=== PATIENT | female | born 1940 | race Caucasian/White ===

== ENCOUNTER 2017-04-07 11:26 | Inpatient (IN) | payer MEDICARE, OTHER ==
[~2017-04-07] VITALS: Ht 157.5 cm; Wt 54.0 kg
[2017-04-07 14:20] VITALS: BP 131/75
--- NOTE | 2017-04-07 14:36 | PM&R Post Admission Assessment ---
Post Admission Physician Asses The preadmission screen agrees with the post admission assessment that the patient is a good candidate for inpatient rehabilitation. The patient will have a comprehensive program of inpatient rehabilitation with a goal of maximizing level of functional independence prior to discharge home with spouse. The patient will have PT/OT ninety minutes per day, each discipline, five days a week for gait, strengthening, conditioning, balance, ADLs, any patient/family/caregiver training as necessary. Speech therapy to do cognitive assessment and treat as indicated. Rehabilitation nursing to assist with bowel, bladder, skin, wound care, medication administration, pain management. Email Production Specialist to assist with discharge planning, community reentry. SCD's for DVT prophylaxis. She appears to be well motivated to participate in three hours of therapy a day. She should be able to tolerate three hours of therapy a day from a medical standpoint. She should benefit from the three hours of therapy a day. She has a reasonable discharge plan, reasonable discharge rehabilitation goals and a supportive family. She has various comorbidities that need to be closely monitored with medications and treatments adjusted on a daily basis as needed. These include: Glaucoma Strss incontinence Newly diagnosed Truncal ataxia IBS Barriers to discharge for this patient who had been independent prior to this are for her to be modified independent to supervision for ADLs and mobility skills prior to discharge home with [family], so as to lessen the burden of the caregivers. Risks for this patient include: 1. Fall 2. Fracture 3. DVT 4. Pulmonary embolism 5. Flare of IBS with incontinence 6. Skin breakdown 7. Contractures 8. Poorly controlled pain 9. Urinary retention 10. UTI 11. Respiratory infection 12. Aspiration Estimated Length of Stay: 14 days Prognosis: Rehab prognosis appears good for goal of discharge home with spouse and C modified independent to supervision for ADLs and mobility skills. LIAM PATRICK MD Apr 07, 2017 14:36
--- NOTE | 2017-04-07 15:00 | Physical Therapy Evaluation ---
PT Evaluation-General Medical Diagnosis Admission Date Apr 07, 2017 at 13:40 Medical Diagnosis: ataxia Onset Date: Apr 02, 2017 Therapy Diagnosis Therapy Diagnosis: impaired mobility, ataxia, balance Referral Physician: Jorge Reason for Referral: Evaluation/Treatment Medical History Pertinent Medical History: GERD Additional Medical History glaucoma, sleep apnea, IBS, ulcerative colitis, incontinence, osteoporosis, surg (cataracts, cholecystectomy, hysterectomy, bladder repair, tonsillectomy) Reviewed History: Yes Social History Home: Multilevel Current Living Status: Spouse Entry Into Home: Stairs With Railing Split level home has at least 7 steps to go up or down. Prior/Core FIM Prior Level of Function Functional [place] Measure 0=Not Assessed/NA 4=Minimal Assistance 1=Total Assistance 5=Supervision or Setup 2=Maximal Assistance 6=Modified [place] 3=Moderate Assistance 7=Complete [place] Bed Mobility: 7 Transfers (B,C,W/C) (FIM): 7 Gait: 7 PT Evaluation-Current Subjective Patient in wheelchair pre tx, agrees to PT, states that she has no pain. Will be co-treating with OT due to ataxia. Pt/Family Goals stop ataxia Objective Patient Orientation: Person, Place, Situation ROM/Strength ROM Lower Extremities WNL Strenght Lower Extremities 4/5 gross bilateral lower extremities Neuromuscular (Tone, Coordination, Reflexes) Patient does seem to have normal tone at rest in her lower extremities. She has a normal eye tracking and peripheral vision. [place] coordination test was normal bilaterally. Dysdiadochokinesia test was normal. Normal smile, no tongue deviation, no numbness on face. Sensory Vision: Functional Hearing: Functional Sensation Right Lower Extremit: Intact Sensation Left Lower Extremity: Intact Transfers Functional [place] Measure 0=Not Assessed/NA 4=Minimal Assistance 1=Total Assistance 5=Supervision or Setup 2=Maximal Assistance 6=Modified [place] 3=Moderate Assistance 7=Complete IndependenceIRFPAI Quality Coding Scale 6 Independent with activity with or without an assistive device 5 Patient requires set up or clean up by helper. Patient completes activity by themselves 4 Supervision or touching assist (CGA). [place] provide cues , steadying assist 3 The helper provides less than half the effort to complete the activity 2 The helper provides more than half the effort to complete the activity 1 Dependent. The helper does all the effort to complete an activity 7 Patient refused to complete or attempt activity 9 The patient did not perform the activity before the current illness or injury 88 Not attempted due to Medical conditions or safety concerns Transfers (B, C, W/C) (FIM): 3 Scootin Rollin Roll Left to Right (QC): 4 Supine to/from Sit: 5 Sit to/from Stand: 3 bed t/f WC(FIM only if WC use): 2 Sit to Lying (QC): 4 Lying to Sitting/Side of Bed(Q: 4 Sit to Stand (QC): 2 Chair/Ukp-qe-Yzznl Xfer(QC): 2 Patient performs bed mobility with SBA, sit to stand and stand pivot transfer with mod assist. Patient displays ballistic trunk ataxia with trunk or knee extension. She performs a transfer much better modified squat pivot, nursing trained on how to perform the transfer. Gait Does the Patient Walk?: No and Walking Goal IS indicated Anticipated Mode of Locomotion: Walk Gait (FIM): 0 Comments/Gait Description Attempted to get patient into the LiteGait for ambulation due to safety issued because of her ballistic trunk ataxia. Her ataxia was so bad and violent that she had to sit back down. There was no way she could walk with the violent trunk movement she was having. Wheelchair Training Does the Pt Use a Wheelchair?: Yes Wheelchair (FIM): 5 Distance: 150'x2 Wheelchair Level of Assist: 5 Wheel 50 ft with 2 turns (QC): 4 Wheel 150 ft (QC): 4 Type of Wheelchair: Manual Stairs not safe to perform stairs due to ataxia Balance Sitting Static: Normal Sitting Dynamic: Normal Standing Static: Poor Standing Dynamic: Poor Treatment Patient was toileted twice and nursing was trained on how to perform a transfer with her. Co-treated with nursing who worked on dressing and toileting while PT worked on transfers and standing. OT also worked on trying to coordinate upper extremities safely while standing in the LiteGait. Assessment/Needs Patient has severe ballistic trunk ataxia, impaired strength, mobility, and balance. She is at a severe risk for falling. Rehab Potential: Guarded PT Short Term Goals Short Term Goals Time Frame: Apr 14, 2017 Transfers (B,C,W/C) (FIM): 4 Gait (FIM): 1 Gait Distance Comment: 20' Gait Level of Assist: 3 PT Supervisor Cloth Winding Goals Supervisor Cloth Winding Goals PT Supervisor Cloth Winding Goals Time Frame: Apr 28, 2017 Transfers (B,C,W/C) (FIM): 4 Sit to Lying (QC): 6 Lying-Sitting on Side/Bed(QC): 6 Sit to Stand (QC): 4 Rollin Roll Left to Right (QC): 6 Chair/Xef-ab-Rcwqf Xfer(QC): 4 Gait (FIM): 2 Distance: 50' Walk 10 feet (QC): 3 Walk 50ft with 2 Turns (QC): 3 PT Plan Problem List Problem List: Activity Tolerance, Functional Strength, Safety, Balance, Gait, Transfer, Bed Mobility Treatment/Plan Treatment Plan: Continue Plan of Care Treatment Plan: Bed Mobility, Education, Functional Activity Jeffrey, Functional Strength, Group Therapy, Gait, Safety, Therapeutic Exercise, Transfers Treatment Duration: Apr 28, 2017 Frequency: At least 5-7 days/Wk (IRF) Estimated Hrs Per Day: 1.5 hours per day Patient and/or Family Agrees t: Yes Safety Risks/Education Patient Education: Gait Training, Transfer Techniques, Correct Positioning, W/ C Management, Safety Issues Teaching Recipient: Patient Teaching Methods: Demonstration, Discussion Response to Teaching: Reinforcement Needed Discharge Recommendations Plan Patient will perform bed mobility and transfer training, balance and endurance training, functional strengthening, stair training, gait training, and education , to improve functional mobility at home. Therapy D/C Recommendations: Home w/ Family Support Time/GCodes Time In: 1355 Time Out: 1450 Total Billed Treatment Time: 55 Total Billed Treatment 1 visit EVM 10' FA 45' PT eval from [id number], co-treat from [id number] TANJA FELIX PT Apr 07, 2017 15:00
--- NOTE | 2017-04-07 15:27 | ST Cognitive Linguistic Eval ---
Speech Evaluation-General Medical Diagnosis Truncal Ataxia Onset Date: Apr 02, 2017 Therapy Diagnosis Therapy Diagnosis: Cognitive Linguistic Skills WNL Referral Referring Physician: Dr. Patel Reason for Referral: Evaluation/Treatment Cognitive Evaluation Medical History Pertinent Medical History: GERD Reviewed History: Yes Social History Current Living Status: Spouse Speech PLF-Current Status Prior Level of Function The patient denied prior challenges with speech, language, or cognition. Subjective The patient was recently admitted to [facility] unit with a diagnosis of truncal ataxia. The patient greeted the clinician appropriately and was agreeable to participation in the cognitive evaluation. Language Eval: Auditory Comprehends Simple Yes/No Ques: Functional Indent/Objects Multiple [place]: Functional Ident/Pics in Multiple Waite: Functional Follows 1-Step Commands: Functional Follows Complex Directions: Functional Follows General Conversations: Functional Language Eval: Verbal Language Completes Spontaneous Greeting: Functional Produces Auto, Serial Info: Functional Imitates Simple Words/Phrases: Functional Word Finding: Functional Requests Basic Needs: Functional States Basic Personal Info: Functional Expresses Complex Ideas: Functional Cognitive Patient Orientation The patient was independently oriented to location, month, day, date, and year. Objective Cognitive Domain Attention: WNL Memory: WNL Problem Solving: Functional Objective Impression The patient demonstrated cognitive linguistic skills WNL. Communication/Social Cognition Comprehension: 6 Expression: 6 Social Interaction: 6 Problem Solvin Memory: 6 Speech Patient Assess Expression of Ideas/Wants: Expression (4) Understanding [place] Content: Understands (4) Brief Interview-Mental Status: Yes Repetition of Three Words: Three (3) Temporal Orientation: Year: Correct (3) Temporal Orientation: Month: Accurate within 5 days(2) Temporal Orientation: Day: Correct (1) Recall : Wear to say "Sock": Yes, no cue required (2) Recall : Color: Yes, no cue required (2) Recall : Bed: Yes, no cue required (2) Speech-Plan Treatment Plan Speech Therapy Treatment Plan: Discontinue ST Evaluation, only. Frequency: Modified Program (IRF) Estimated Hrs Per Day: .25 hour per day (The patient will not receive skilled speech pathology services.) Rehab Potential: Guarded Safety Risks/Education Teaching Recipient: Patient Teaching Methods: Discussion Response to Teaching: Verbalize Understanding Education Topics Provided: Results, Recommendations, Plan of Care Time Speech Therapy Time In: 13:35 Speech Therapy Time Out: 13:55 Total Billed Time: 20 Billed Treatment Time 1, SPSNDERIS STAHL Apr 07, 2017 15:27
[2017-04-07] MEDS: acetaZOLAMIDE 250 MG (DIAMOX) TAB PO SCH (16:39)
--- NOTE | 2017-04-07 16:50 | Occupational Therapy Eval ---
OT Evaluation-General/PLF Medical Diagnosis Admission Date Apr 07, 2017 at 13:40 Medical Diagnosis: Truncal Ataxia Onset Date: Apr 02, 2017 Therapy Diagnosis Therapy Diagnosis: decr functional mobility, decr balance, decr self care, weakness Height/Weight Height (Feet): 5 Height (Inches): 2.00 Weight (Pounds): 114 Weight (Ounces): 1.0 Precautions Precautions/Isolations: Fall Prevention, Standard Precautions Referral Physician: Jorge Referral Reason: Evaluation/Treatment Medical History Pertinent Medical History: GERD Additional Medical History sleep apnea, cardiac issues, cataract surgery, IBS, colitis, stress incontinence , osteoporosis, hx frozen L shoulder. Glaucoma, orthostatic hypotension Current History Admitted with lightheadedness and developed ballistic truncal ataxia. Also has spinal cord stenosis and scoliosis. Reviewed History: Yes Social History Home: Multilevel Current Living Status: Spouse Entry Into Home: Stairs With Railing Steps Into Home: 7 (split level, with 7 steps up and 7 steps down) ADL-Prior Level of Function ADL PLOF Comments Pt reported that she was independent in all of her basic self care needs. She did not use any assistive devices for walking. She managed cleaning, cooking, laundry and drove. She did not work outside the home after she was and traveled with her and family until he retired from the [employer]. 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 Pain reported 0/10 Appearance Alert, cooperative Current Glasses/Contacts: Yes (reading) Hearing Aids: No Dentures/Partials: Yes (top and bottom) Hand Dominance: Right Upper Extremity ROM Grossly WFL bilat Upper Extremity Coordination Grossly WFL Upper Extremity Sensation WFL Upper Extremity Strength grossly 4/5 bilat ADL-Treatment ADL-Current Pt required max assist of two people to transfer her from car to w/c. Once she stood, she displayed ballistic ataxia (with trunk movement ranges of a foot or more). Co-tx with PT for toileting and toilet transfer, with PT/OT problem solving transfers and OT working on ADLs and UE management. Toileting and toilet transfer initially required two people due to her ballistic ataxia, with difficulty managing clothing. Once she was seated, however, her balance was good and she was able to wipe herself. Two people required to transfer her back to w/c and manage clothing. It was observed that she had less ataxia when she didn't extend at hips and knees. Cont co-tx with PT for standing in LiteGait, with support for trunk. As she stood, ataxia waxed and waned but was not functional. With squat pivot transfer and keeping her head down, she was able to transfer mod assist to toilet, still needing second person to manage clothing while she managed hygiene. OT and PT trained several nurses in transfer on and off BSC and to bed, with last bed transfer requiring min assist. Once in bed, other ADLs were addressed. Pt was able to easily move from supine to sit EOB and back to supine during ADLs and had no LOB while seated. It appears that hip and knee extension trigger her ataxia. Pt was left up in bed , present, all needs met. Functional [place] Measure 0=Not Assessed/NA 4=Minimal Assistance 1=Total Assistance 5=Supervision or Setup 2=Maximal Assistance 6=Modified [place] 3=Moderate Assistance 7=Complete IndependenceIRFPAI Quality Coding Scale 6 Independent with activity with or without an assistive device 5 Patient requires set up or clean up by helper. Patient completes activity by themselves 4 Supervision or touching assist (CGA). [place] provide cues , steadying assist 3 The helper provides less than half the effort to complete the activity 2 The helper provides more than half the effort to complete the activity 1 Dependent. The helper does all the effort to complete an activity 7 Patient refused to complete or attempt activity 9 The patient did not perform the activity before the current illness or injury 88 Not attempted due to Medical conditions or safety concerns Eating (FIM): 6 (Pt has dentures and there are foods that she cannot eat without her teeth. Able to cut food and open packages and feed herself) Eating (QC): 6 Grooming (FIM): 5 (Setup to brush teeth, wash face and hands, brush hair, seated EOB. No makeup. Supervision for balance) Oral Hygiene (QC): 4 (Supervision for balance) Bathing (FIM): 5 (Pt was able to wash and dry all parts, spsonge bath, seated EOB, except back. She weight shifted to get fabi and bottom. Was able to easily reach her feet. No standing) Shower/Bathe Self (QC): 4 (Supervision for balance) Upper Body Dressing (FIM): 5 (Setup, donning and doffing bra and shirt/gown. Good sitting balance at EOB) Upper Body Dressing (QC): 4 (Supervision for balance) Lower Body Dressing (FIM): 5 (Setup, supervision, seated EOB or supine. Able to doff/don socks and shoes, pants. All done bed level.) Lower Body Dressing (QC): 4 (Supervision for balance.) On/Off Footwear (QC): 4 (Supervision for balance) Toileting (FIM): 1 (Two people to manage clothing. t able to manage hygiene while seated. BSC) Toileting Hygiene (QC): 1 Toilet/Commode Transfer (FIM): 1 (Two people to transfer when standing, incl help to manage clothing) Toilet Transfer (QC): 1 Education OT Patient Education: Instructions to caregiver, Modified ADL techniques, Progress toward Goal/Update tx plan, Purpose of tx/functional activities, Rehab process, Safety issues, Transfer techniques, Use of adapted equipment Teaching Recipient: Patient, Primary Caregiver, Family Teaching Methods: Demonstration, Discussion Response to Teaching: Verbalize Understanding, Return Demonstration OT Short Term Goals Short Term Goals Time Frame: Apr 21, 2017 Toilet/Commode Transfer(FIM): 4 Shower Transfer(FIM): 4 Additional Short Term Goals: 2-Verbalize Understanding, 3-ImproveStrength/Jeffrey 1=Demonstrate adherence to instructed precautions during ADL tasks. 2=Patient will verbalize/demonstrate understanding of assistive devices/ modifications for ADL. 3=Patient will improve strength/tolerance for activity to enable patient to perform ADL's. OT Senior Living Goals Pmp Project Manager Goals Time Frame: Apr 28, 2017 Eating (FIM): 6 Eating (QC): 6 Groomin Oral Hygiene (QC): 6 Bathing(FIM): 6 Shower/Bathe Self (QC): 6 Upper Body Dressing(FIM): 6 Upper Body Dressing (QC): 6 Lower Body Dressing(FIM): 6 Lower Body Dressing (QC): 6 On/Off Footwear (QC): 6 Toileting(FIM): 5 Toileting Hygiene (QC): 5 Toilet/Commode Transfer(FIM): 5 Toilet/Commode Transfer (QC): 5 Shower Transfer(FIM): 5 Will plan for goals to be at bed or w/c level and progress to include standing as tolerated Additional Goals: 2-Verbalize Understanding, 3-ImproveStrength/Jeffrey 1=Demonstrate adherence to instructed precautions during ADL tasks. 2=Patient will verbalize/demonstrate understanding of assistive devices/ modifications for ADL. 3=Patient will improve strength/tolerance for activity to enable patient to perform ADL's. OT Education/Plan Problem List/Assessment Assessment: Decreased UE Strength, Dependent Transfers, Impaired Funct Balance , Impaired Self-Care Skills Pt would benefit from skilled OT to increase her independence in basic self care to allow her to safely return to her home to live with her and to decrease caregiver burden Discharge Recommendations Plan/Recommendations: Continue POC Barriers to Progress ballistic ataxia Target Placement home Treatment Plan/Plan of Care Treatment,Training & Education: Yes Patient would benefit from OT for education, treatment and training to promote independence in ADL's, mobility, safety and/or upper extremity function for ADL' s. Plan of Care: ADL Retraining, Caregiver Training, Functional Mobility, Group Exercise/Act as Ind (education, exercise, socialization, functional activities, activity tolerance), UE Funct Exercise/Act, UE Neuromus Re-Ed/Coord Treatment Duration: Apr 28, 2017 Frequency: Twice Daily (5- 6 days a week) Estimated Hrs Per Day: 1.5 hours per day Rehab Potential: Guarded Time/GCodes Start Time: 13:20 Stop Time: 15:35 Total Time Billed (hr/min): 105 Billed Treatment Time visit, 15 minutes evaluation moderate intensity (1320 to 1335), 15 minutes functional activity and 30 minutes ADL co-tx with PT (1405 to 1450), 45 minutes ADL (1450 to 1535) JOANNE CARVAJAL OT Apr 07, 2017 16:50
[2017-04-07 18:30] VITALS: BP 122/68
[2017-04-07] MEDS: LATANOPROST 0.005% (XALATAN) OPHTH SOLN 2.5 ML OU SCH (21:48)
[2017-04-08 04:55] VITALS: BP 111/64
[2017-04-08] MEDS: PANTOPRAZOLE 40 MG (PROTONIX) TAB PO SCH (06:18)
[2017-04-08 06:21] LABS: BASOPHILS % (AUTO) 0 % (0-10); EOSINOPHILS # (AUTO) 0.3 10^3/uL (0.0-0.3); EOSINOPHILS % (AUTO) 7 % (0-10); LYMPHOCYTES # (AUTO) 1.3 X 10^3 (1.0-4.0); LYMPHOCYTES % (AUTO) 36 % (12-44); MEAN CORPUSCULAR HEMOGLOBIN 29 PG (25-34); MEAN CORPUSCULAR HGB CONC 32 G/DL (32-36); MEAN CORPUSCULAR VOLUME 91 FL (80-99); MEAN PLATELET VOLUME 10.4 FL (7.4-10.4); MONOCYTES # (AUTO) 0.4 X 10^3 (0.0-1.0); MONOCYTES % (AUTO) 11 % (0-12); NEUTROPHILS # (AUTO) 1.6 X 10^3 (1.8-7.8); NEUTROPHILS % (AUTO) 46 % (42-75); PLATELET COUNT 172 10^3/uL (130-400); RED BLOOD COUNT 3.98 10^6/uL (4.35-5.85); RED CELL DISTRIBUTION WIDTH 13.6 % (10.0-14.5); WHITE BLOOD COUNT 3.6 10^3/uL (4.3-11.0)
[2017-04-08 06:43] LABS: ALANINE AMINOTRANSFERASE 9 U/L (0-55); ALBUMIN 3.7 GM/DL (3.2-4.5); ANION GAP 8 MMOL/L (5-14); ASPARTATE AMINO TRANSFERASE 19 U/L (5-34); BILIRUBIN,TOTAL 0.5 MG/DL (0.1-1.0); BLOOD UREA NITROGEN 21 MG/DL (7-18); BUN/CREATININE RATIO 30; CALCIUM 8.9 MG/DL (8.5-10.1); CARBON DIOXIDE 21 MMOL/L (21-32); CHLORIDE 114 MMOL/L (98-107); CREATININE SERUM 0.69 MG/DL (0.60-1.30); GFR ESTIMATED > 60; GLUCOSE 92 MG/DL (70-105); POTASSIUM 3.6 MMOL/L (3.6-5.0); SODIUM 143 MMOL/L (135-145)
--- NOTE | 2017-04-08 08:29 | Physical Therapy Daily Note ---
PT Daily Note-Current Subjective Patient in wheelchair pre tx, agrees to PT, has no complaints of pain. Appearance Patient in wheelchair post tx with her . Mental Status Patient Orientation: Normal For Age Transfers Functional [place] Measure 0=Not Assessed/NA 4=Minimal Assistance 1=Total Assistance 5=Supervision or Setup 2=Maximal Assistance 6=Modified [place] 3=Moderate Assistance 7=Complete IndependenceIRFPAI Quality Coding Scale 6 Independent with activity with or without an assistive device 5 Patient requires set up or clean up by helper. Patient completes activity by themselves 4 Supervision or touching assist (CGA). [place] provide cues , steadying assist 3 The helper provides less than half the effort to complete the activity 2 The helper provides more than half the effort to complete the activity 1 Dependent. The helper does all the effort to complete an activity 7 Patient refused to complete or attempt activity 9 The patient did not perform the activity before the current illness or injury 88 Not attempted due to Medical conditions or safety concerns Transfers (B, C, W/C) (FIM): 4 Bed to/from Chair: 4 Patient performs a modified squat pivot transfer with min assist. She cannot extend her hips or knees too much or her ataxia gets very bad. Wheelchair Training Wheelchair (FIM): 6 Distance: 150'x2 Type of Wheelchair: Manual Exercises NuStep Minutes: 15 NuStep Workload: 5 Treatments wheelchair mobility, transfers, functional strengthening Assessment Current Status: Fair Progress improving transfers PT Short Term Goals Short Term Goals Time Frame: Apr 14, 2017 Gait (FIM): 1 Gait Distance Comment: 20' Gait Level of Assist: 3 Wheelchair Distance: 150'x2 PT Vulcan Crewmember Goals Vulcan Crewmember Goals PT Vulcan Crewmember Goals Time Frame: Apr 28, 2017 Transfers (B,C,W/C) (FIM): 4 Sit to Lying (QC): 6 Lying-Sitting on Side/Bed(QC): 6 Sit to Stand (QC): 4 Rollin Roll Left to Right (QC): 6 Chair/Ewr-gn-Bfoyt Xfer(QC): 4 Gait (FIM): 2 Distance: 50' Walk 10 feet (QC): 3 Walk 50ft with 2 Turns (QC): 3 PT Plan Problem List Problem List: Activity Tolerance, Functional Strength, Safety, Balance, Gait, Transfer, Bed Mobility Treatment/Plan Treatment Plan: Continue Plan of Care Treatment Plan: Bed Mobility, Education, Functional Activity Jeffrey, Functional Strength, Group Therapy, Gait, Safety, Therapeutic Exercise, Transfers Treatment Duration: Apr 28, 2017 Frequency: At least 5-7 days/Wk (IRF) Estimated Hrs Per Day: 1.5 hours per day Patient and/or Family Agrees t: Yes Safety Risks/Education Patient Education: Transfer Techniques, Correct Positioning, W/C Management, Safety Issues Teaching Recipient: Patient Teaching Methods: Demonstration, Discussion Response to Teaching: Reinforcement Needed Time/GCodes Time In: 800 Time Out: 830 Total Billed Treatment Time: 30 Total Billed Treatment 1 visit EX 15' [facility] 15' TANJA FELIX PT Apr 08, 2017 08:29
[2017-04-08] MEDS: COLAZAL PO SCH ×3 (08:56→20:35)
--- NOTE | 2017-04-08 10:36 | Occupational Ther Daily Note ---
OT Current Status-Daily Note Subjective "Ok I am here to get better, but my upper body is pretty good, but you should see me move." Pain Numeric Pain Scale: 0-No Pain Appearance Patient seated in wheelchair at side of bed visiting with her upon OT arrival. Agreeable to session this am. Mental Status/Objective Patient Orientation: Person, Place, Situation Functional [place] Measure 0=Not Assessed/NA 4=Minimal Assistance 1=Total Assistance 5=Supervision or Setup 2=Maximal Assistance 6=Modified [place] 3=Moderate Assistance 7=Complete [place] ADL-Treatment Functional [place] Measure 0=Not Assessed/NA 4=Minimal Assistance 1=Total Assistance 5=Supervision or Setup 2=Maximal Assistance 6=Modified [place] 3=Moderate Assistance 7=Complete IndependenceIRFPAI Quality Coding Scale 6 Independent with activity with or without an assistive device 5 Patient requires set up or clean up by helper. Patient completes activity by themselves 4 Supervision or touching assist (CGA). [place] provide cues , steadying assist 3 The helper provides less than half the effort to complete the activity 2 The helper provides more than half the effort to complete the activity 1 Dependent. The helper does all the effort to complete an activity 7 Patient refused to complete or attempt activity 9 The patient did not perform the activity before the current illness or injury 88 Not attempted due to Medical conditions or safety concerns Other Treatment Agreed to strength and endurance work to address safe transfers. She completed moderate resistive theraband x 10 reps shoulders/elbows with good tolerance. Then patient participated in wheelchair push ups x 10reps. She required several rest breaks throughout the session. During wheelchair push ups, if she lifted her bottom out of the wheelchair too far, the ballistic ataxia was triggered. Cautioned her to only come up so far as to not trigger the movements. Theraband left in the room for her use over the weekend. Encouraged her to self -propell the wheelchair in the commons area during the weekend to address strength and endurance as well. She and her agreed to do so. OT Short Term Goals Short Term Goals Time Frame: Apr 21, 2017 Toilet/Commode Transfer(FIM): 4 Shower Transfer(FIM): 4 Additional Short Term Goals: 2-Verbalize Understanding, 3-ImproveStrength/Jeffrey 1=Demonstrate adherence to instructed precautions during ADL tasks. 2=Patient will verbalize/demonstrate understanding of assistive devices/ modifications for ADL. 3=Patient will improve strength/tolerance for activity to enable patient to perform ADL's. OT Prison Goals Camp Recreation Specialist Goals Time Frame: Apr 28, 2017 Eating (FIM): 6 Eating (QC): 6 Groomin Oral Hygiene (QC): 6 Bathing(FIM): 6 Shower/Bathe Self (QC): 6 Upper Body Dressing(FIM): 6 Upper Body Dressing (QC): 6 Lower Body Dressing(FIM): 6 Lower Body Dressing (QC): 6 On/Off Footwear (QC): 6 Toileting(FIM): 5 Toileting Hygiene (QC): 5 Toilet/Commode Transfer(FIM): 5 Toilet/Commode Transfer (QC): 5 Shower Transfer(FIM): 5 Will plan for goals to be at bed or w/c level and progress to include standing as tolerated Additional Goals: 2-Verbalize Understanding, 3-ImproveStrength/Jeffrey 1=Demonstrate adherence to instructed precautions during ADL tasks. 2=Patient will verbalize/demonstrate understanding of assistive devices/ modifications for ADL. 3=Patient will improve strength/tolerance for activity to enable patient to perform ADL's. OT Education/Plan Problem List/Assessment Pt would benefit from skilled OT to increase her independence in basic self care to allow her to safely return to her home to live with her and to decrease caregiver burden Discharge Recommendations Plan/Recommendations: Continue POC Treatment Plan/Plan of Care Patient would benefit from OT for education, treatment and training to promote independence in ADL's, mobility, safety and/or upper extremity function for ADL' s. Plan of Care: ADL Retraining, Caregiver Training, Functional Mobility, Group Exercise/Act as Ind (education, exercise, socialization, functional activities, activity tolerance), UE Funct Exercise/Act, UE Neuromus Re-Ed/Coord Treatment Duration: Apr 28, 2017 Frequency: Twice Daily (5- 6 days a week) Estimated Hrs Per Day: 1.5 hours per day Rehab Potential: Guarded Time/GCodes Start Time: 08:47 Stop Time: 09:12 Total Time Billed (hr/min): 25 Billed Treatment Time Visit, ex x 2 units. DAILY MORRISON OT Apr 08, 2017 10:36
[2017-04-08] MEDS: acetaZOLAMIDE 250 MG (DIAMOX) TAB PO SCH (13:42)
[2017-04-08 18:49] VITALS: BP 146/71
[2017-04-08] MEDS: LATANOPROST 0.005% (XALATAN) OPHTH SOLN 2.5 ML OU SCH (20:34)
--- NOTE | 2017-04-09 02:07 | HISTORY AND PHYSICAL ---
CHIEF COMPLAINT: Difficulty with balance. HISTORY OF PRESENT ILLNESS: The patient is a 76-year-old female who developed unsteady gait pattern about 3 weeks ago associated with lightheadedness, sitting up or standing. The patient was admitted to hospitalist service at [facility] on 04/02 and seen in consultation by neurology on 04/03. Impression was truncal ataxia after examination and work-ups with imaging studies and labs were done. The patient was placed on Diamox for treatment. The patient has had a decline in her functional independence due to this and is referred to Inpatient Rehabilitation Unit. Prior level of function She had been independent prior to this and living with her spouse in [place], [place]. Her PCP is in [place], [place]. Neurologist also mentioned syringomyelia diagnosed 3 years ago at [facility], followed by neurosurgery and to continue observation. Current level of function: She is Modified Independent for eating and setup for grooming , bathing and dressing.She requires Min assist for bed mobility and transfers.Upon admission she had involuntary movements due to truncal ataxia and could not stand to walk safely. PAST MEDICAL HISTORY: 1. COPD. 2. GERD with pylori infection and hiatal hernia. 3. Glaucoma, on eyedrops. 4. Noncardiac chest pain. 5. Irritable bowel syndrome, on medication. 6. Urinary stress incontinence. 7. Osteoporosis. 8. Frozen left shoulder. PAST SURGICAL HISTORY: 1. Cataract extraction. 2. Cholecystectomy. 3. Hysterectomy partial. 4. Bladder repair. 5. Tonsillectomy. 6. Colonoscopy. 7. EGD. 8. Pablito fundoplication. 9. Manipulation for left frozen shoulder. ALLERGIES: No known medication allergies. FAMILY HISTORY: 1. Brain cancer. 2. Hyperlipidemia. 3. Diabetes mellitus. SOCIAL HISTORY: Lives with spouse in [facility], had been independent. No tobacco. Occasional caffeine and alcohol use.Traveled with her who was in the [employer] REVIEW OF SYSTEMS: Ten-point review of systems significant for loose stools at times, left shoulder pain, loss of balance. MEDICATIONS: 1. Colazal 2250 mg p.o. b.i.d. for IBS. 2. Vitamin B12 1000 mcg subcutaneous every 30 days. 3. Nexium 40 mg p.o. daily. 4. Xalatan one drop both eyes at bedtime. 5. Diamox 125 mg p.o. daily. PHYSICAL EXAMINATION: Significant for a pleasant female, somewhat thin, appearing her stated age, alert and oriented, sitting in a chair in no acute distress. VITAL SIGNS: Within normal limits. She is afebrile. HEENT: Vision, speech, hearing are functional. No oral lesion is noted. NECK: Supple without mass. HEART: Regular rhythm. LUNGS: Clear. ABDOMEN: Soft and nontender. Bowel sounds present. EXTREMITIES: No lower leg edema. No calf tenderness. MUSCULOSKELETAL: The patient has functional passive range of motion in all 4 extremities.. NEUROLOGIC: Cranial nerves II through XII intact. Tone normal. Strength grossly 4/5. Sensation grossly intact to touch. Coordination normal in limbs ,+ truncal ataxia. Cognition grossly intact. IMPRESSION: 1. 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 2. Irritable bowel syndrome on Colazal. 3. GERD, on Nexium. 4. Glaucoma, on Xalatan eyedrops. PLAN: The patient will have a comprehensive program of inpatient rehabilitation with goal of maximizing level of functional independence prior to discharge home with spouse. The patient will have PT/OT 90 minutes per day, each discipline, 5 days week for gait/strengthening, conditioning, balance, any patient/family/caregiver training necessary, ADL training, any adaptive equipment and training as necessary. Speech therapy to do cognitive assessment and treat as indicated. Rehabilitation nursing to assist with bowel, bladder, skin care, medication administration, pain management, as necessary. Social work to assist with discharge planning, community reentry as needed. Will ask Dr. Joyner to assist with medical management as needed for this out of town patient. Routine admission labs. ESTIMATED LENGTH OF STAY: Two weeks. PROGNOSIS: Rehab prognosis appears good for goal of discharging home with spouse modified independent to supervision for ADLs and mobility skills. DIET: Regular. CODE STATUS: Full code. Job ID: [id number] Dictated Date: 04/07/2017 14:28:45 Hydraulic Press Operator Date: 04/09/2017 01:42:03/ervin CABELLO
[2017-04-09 06:00] VITALS: BP 155/72
[2017-04-09] MEDS: PANTOPRAZOLE 40 MG (PROTONIX) TAB PO SCH (06:01)
[2017-04-09] MEDS: COLAZAL PO SCH ×2 (08:48→20:28)
[2017-04-09] MEDS: acetaZOLAMIDE 250 MG (DIAMOX) TAB PO SCH (13:54)
[2017-04-09 18:23] VITALS: BP 105/67
[2017-04-09] MEDS: LATANOPROST 0.005% (XALATAN) OPHTH SOLN 2.5 ML OU SCH (20:28)
[2017-04-10 05:14] VITALS: BP 145/63
[2017-04-10] MEDS: PANTOPRAZOLE 40 MG (PROTONIX) TAB PO SCH (06:32)
[2017-04-10] MEDS: COLAZAL PO SCH ×2 (08:20→20:04)
--- NOTE | 2017-04-10 09:57 | Physical Therapy Daily Note ---
PT Daily Note-Current Subjective Patient in wheelchair pre tx, agrees to PT, has no complaints of pain. Appearance Patient in wheelchair at bedside post tx, has nurse call, phone, tray, all needs met. Mental Status Patient Orientation: Normal For Age Transfers Functional [place] Measure 0=Not Assessed/NA 4=Minimal Assistance 1=Total Assistance 5=Supervision or Setup 2=Maximal Assistance 6=Modified [place] 3=Moderate Assistance 7=Complete IndependenceIRFPAI Quality Coding Scale 6 Independent with activity with or without an assistive device 5 Patient requires set up or clean up by helper. Patient completes activity by themselves 4 Supervision or touching assist (CGA). [place] provide cues , steadying assist 3 The helper provides less than half the effort to complete the activity 2 The helper provides more than half the effort to complete the activity 1 Dependent. The helper does all the effort to complete an activity 7 Patient refused to complete or attempt activity 9 The patient did not perform the activity before the current illness or injury 88 Not attempted due to Medical conditions or safety concerns Transfers (B, C, W/C) (FIM): 4 Sit to/from Stand: 4 Bed to/from Chair: 4 Patient performs a stand pivot transfer with min assist. She can stand with min assist but once she does she has severe trunk ataxia and has ballistic movements forward and back. It is constant and too much to attempt to ambulate this morning. Patient practiced modified squat pivot transfers x4 each side. She fatigues fairly quickly and needs frequent rest breaks. Wheelchair Training Wheelchair (FIM): 6 Distance: 150'x2 Type of Wheelchair: Manual Exercises LAQ alternating for 5 min with 2# ankle weights NuStep Minutes: 15 NuStep Workload: 5 (Strengthening for legs in absence of walking) Treatments transfer training, functional strengthening Assessment Current Status: Poor Progress no change in mobility PT Short Term Goals Short Term Goals Time Frame: Apr 14, 2017 Gait (FIM): 1 Gait Distance Comment: 20' Gait Level of Assist: 3 Wheelchair Distance: 150'x2 PT Warping Mill Operator Goals Assisted Goals PT Assisted Goals Time Frame: Apr 28, 2017 Transfers (B,C,W/C) (FIM): 4 Sit to Lying (QC): 6 Lying-Sitting on Side/Bed(QC): 6 Sit to Stand (QC): 4 Rollin Roll Left to Right (QC): 6 Chair/Koh-li-Kjmcl Xfer(QC): 4 Gait (FIM): 2 Distance: 50' Walk 10 feet (QC): 3 Walk 50ft with 2 Turns (QC): 3 PT Plan Problem List Problem List: Activity Tolerance, Functional Strength, Safety, Balance, Gait, Transfer, Bed Mobility Treatment/Plan Treatment Plan: Continue Plan of Care Treatment Plan: Bed Mobility, Education, Functional Activity Jeffrey, Functional Strength, Group Therapy, Gait, Safety, Therapeutic Exercise, Transfers Treatment Duration: Apr 28, 2017 Frequency: At least 5-7 days/Wk (IRF) Estimated Hrs Per Day: 1.5 hours per day Patient and/or Family Agrees t: Yes Safety Risks/Education Patient Education: Transfer Techniques, Correct Positioning, Safety Issues Teaching Recipient: Patient Teaching Methods: Demonstration, Discussion Response to Teaching: Reinforcement Needed Time/GCodes Time In: 900 Time Out: 1000 Total Billed Treatment Time: 60 Total Billed Treatment 1 visit EX 20' WC 10' FA 30' TANJA FELIX PT Apr 10, 2017 09:57
[2017-04-10] MEDS: acetaZOLAMIDE 250 MG (DIAMOX) TAB PO SCH (14:37)
--- NOTE | 2017-04-10 14:47 | Therapy Group Daily Note ---
Therapy Daily Group Note Patient Education Topic Other List Below (pain) Exercises LE Seated Exercise, UE Exercise Other/Notes Pt maneuvered to OT/PT group using w/c. OT/PT group consisted of introductions (name, place living, what do you do to relax), speaker for pain education, breathing techniques and UE/LE seated exercises. Pt was attentive throughout group. Contributed to discussions by giving personal examples of how to work through pain. Pt was appropriate with introductions and interactions with other group members. Pt verbalized understanding of pain education. Pt was able to complete breathing techniques appropriately. Able to complete UE/LE seated exercises. After therapy, sitting in w/c with visitor present in room. Call light/phone in reach. All needs met in room. Start Time: 13:00 Stop Time: 14:05 Total Billed Treatment Time: 65 Total Billed Treatment 1-GRP JEANNIE FIELDS Apr 10, 2017 14:47
[2017-04-10] MEDS ORDERED: ACET125T2 PO (14:59)
[2017-04-10] MEDS ORDERED: CNC1KV INJ (14:59)
[2017-04-10] MEDS ORDERED: NF-ESOM40C PO (14:59)
[2017-04-10] MEDS ORDERED: LATA2.5D5 OU (14:59)
[2017-04-10] MEDS ORDERED: BALS750C7 PO (14:59)
--- NOTE | 2017-04-10 15:11 | Occupational Ther Daily Note ---
OT Current Status-Daily Note Subjective Pt alert, sitting in w/c. Pt already completed grooming at w/c level. Pt agreed to therapy. No c/o pain. Mental Status/Objective Patient Orientation: Person, Place, Time, Situation Functional [place] Measure 0=Not Assessed/NA 4=Minimal Assistance 1=Total Assistance 5=Supervision or Setup 2=Maximal Assistance 6=Modified [place] 3=Moderate Assistance 7=Complete [place] ADL-Treatment Pt maneuvered w/c into bathroom by self. Min A with transfer from w/c to shower chair, using a modified stand pivot transfer (keeping pt in hip and knee flexion to prevent ataxic movements). Sitting in shower chair, pt able to complete all bathing without ataxic movements staying in a sitting position. Pt retrieved clothing at w/c level. Pt was able to don/doff pants in sitting position. Dons/doffs socks by self. Pt states that it is easier to dress lower body when lying in bed. Donning/doffing upper body clothing by self. Functional [place] Measure 0=Not Assessed/NA 4=Minimal Assistance 1=Total Assistance 5=Supervision or Setup 2=Maximal Assistance 6=Modified [place] 3=Moderate Assistance 7=Complete IndependenceIRFPAI Quality Coding Scale 6 Independent with activity with or without an assistive device 5 Patient requires set up or clean up by helper. Patient completes activity by themselves 4 Supervision or touching assist (CGA). [place] provide cues , steadying assist 3 The helper provides less than half the effort to complete the activity 2 The helper provides more than half the effort to complete the activity 1 Dependent. The helper does all the effort to complete an activity 7 Patient refused to complete or attempt activity 9 The patient did not perform the activity before the current illness or injury 88 Not attempted due to Medical conditions or safety concerns Grooming (FIM): 6 Oral Hygiene (QC): 6 Bathing (FIM): 5 ((SBA for safety.)) Bathing Location: L Arm, R Arm, L Upper Leg, R Upper Leg, L Lower Leg ( including foot), R Lower Leg (including foot), Chest, Abdomen, Buttocks, Perineal Area Shower/Bathe Self (QC): 4 ((SBA for safety.)) Upper Body (FIM): 6 Upper Body Dressing (QC): 6 Lower Body Dressing (FIM): 5 ((SBA for safety.)) Lower Body Dressing (QC): 4 ((SBA for safety.)) On/Off Footwear (QC): 4 ((SBA for safety.)) Transfers (B, C, W/C) (FIM): 4 Shower Transfer(FIM): 4 (Using rolling shower chair to safety transport pt into shower. Pt is min A to transfer from w/c to rolling shower chair.) Other Treatment Pt maneuvered w/c to therapy gym. Pt completed resistive clothespins 2x's each hand. Pt tolerated well. After therapy, pt sitting in recliner with call light /phone in reach. All needs met in room. OT Short Term Goals Short Term Goals Time Frame: Apr 21, 2017 Toilet/Commode Transfer(FIM): 4 Shower Transfer(FIM): 4 Additional Short Term Goals: 2-Verbalize Understanding, 3-ImproveStrength/Jeffrey 1=Demonstrate adherence to instructed precautions during ADL tasks. 2=Patient will verbalize/demonstrate understanding of assistive devices/ modifications for ADL. 3=Patient will improve strength/tolerance for activity to enable patient to perform ADL's. OT Alum Mixer Goals Alum Mixer Goals Time Frame: Apr 28, 2017 Eating (FIM): 6 Eating (QC): 6 Groomin Oral Hygiene (QC): 6 Bathing(FIM): 6 Shower/Bathe Self (QC): 6 Upper Body Dressing(FIM): 6 Upper Body Dressing (QC): 6 Lower Body Dressing(FIM): 6 Lower Body Dressing (QC): 6 On/Off Footwear (QC): 6 Toileting(FIM): 5 Toileting Hygiene (QC): 5 Toilet/Commode Transfer(FIM): 5 Toilet/Commode Transfer (QC): 5 Shower Transfer(FIM): 5 Will plan for goals to be at bed or w/c level and progress to include standing as tolerated Additional Goals: 2-Verbalize Understanding, 3-ImproveStrength/Jeffrey 1=Demonstrate adherence to instructed precautions during ADL tasks. 2=Patient will verbalize/demonstrate understanding of assistive devices/ modifications for ADL. 3=Patient will improve strength/tolerance for activity to enable patient to perform ADL's. OT Education/Plan Problem List/Assessment Pt would benefit from skilled OT to increase her independence in basic self care to allow her to safely return to her home to live with her and to decrease caregiver burden Discharge Recommendations Plan/Recommendations: Continue POC Treatment Plan/Plan of Care Patient would benefit from OT for education, treatment and training to promote independence in ADL's, mobility, safety and/or upper extremity function for ADL' s. Plan of Care: ADL Retraining, Caregiver Training, Functional Mobility, Group Exercise/Act as Ind (education, exercise, socialization, functional activities, activity tolerance), UE Funct Exercise/Act, UE Neuromus Re-Ed/Coord Treatment Duration: Apr 28, 2017 Frequency: Twice Daily (5- 6 days a week) Estimated Hrs Per Day: 1.5 hours per day Rehab Potential: Guarded Time/GCodes Start Time: 08:00 Stop Time: 09:00 Total Time Billed (hr/min): 60 Billed Treatment Time 1 visit-ADL 3 (45 min) EX 1 (15 min) JEANNIE FIELDS Apr 10, 2017 15:11
[2017-04-10 17:37] VITALS: BP 140/80
--- NOTE | 2017-04-10 19:02 | Consultation ---
History of Present Illness History of Present Illness Patient Consulted On(cheli/time) 04/10/17 18:57 Time Seen by Provider: 06:50 History of Present Illness patient had unsteady gait pattern about 3 weeks ago with lightheadedness, sitting up or standing. One week ago yesterday came out of sabianist, dizzy and was jerking. Patient went to the emergency room at [facility]. Patient seen by neurologist and told had truncal ataxia. Patient an MRI of head and neck and spine. Surgery partial hysterectomy, tonsils, left shoulder and Pablito. Family history cancer in family denies asthma, TB, diabetes , heart disease, or cancer. Patient has history of COPD, GERD, noncardiac chest pain, irritable bowel syndrome, urinary stress incontinence, and frozen left shoulder Allergies and Home Medications Allergies Coded Allergies: No Known Drug Allergies (Unverified , 04/07/17) Home Medications Acetazolamide 125 Mg Tablet, 125 MG PO 1400, (Reported) Balsalazide Disodium 750 Mg Capsule, 2,250 MG PO BID, (Reported) Cyanocobalamin 1,000 Mcg/Ml Inj, 1,000 MCG INJ MONTHLY, (Reported) Esomeprazole Magnesium 40 Mg Cap, 40 MG PO DAILY, (Reported) Latanoprost 2.5 Ml Drops, 1 DROP OU HS, (Reported) Past Kspqqxn-Cpeqit-Rblzoh Hx Patient Social History Alcohol Use: Denies Use Recreational Drug Use: No Smoking Status: Never a Smoker Recent Foreign Travel: No Contact w/Someone Who Travel: No Recent Infectious Disease Expo: No Recent Hopitalizations: Yes Physical Abuse Screen: No Sexual Abuse: No Immunizations Up To Date Date of Pneumonia Vaccine: Jul 08, 2015 Seasonal Allergies Seasonal Allergies: No Surgeries HX Surgeries: Yes Surgeries: Abdominal, Orthopedic Respiratory Hx Respiratory Disorders: No Cardiovascular Hx Cardiac Disorders: Yes Reproductive System : No Gastrointestinal Gastrointestinal Disorders: Colitis, Gastroesophageal Reflux, Obstructive Bowel , Irritable Bowel Musculoskeletal Musculoskeletal Disorders: Degenerate Disk Disease, Osteoporosis HEENT HEENT Disorders: Cataract Loss of Vision: Denies Hearing Impairment: Denies Family Medical History Family Medial History: Diabetes mellitus grandparents FH: brain cancer 19 MOTHER Hypercholesterolemia 19 MOTHER Review of Systems-General Constitutional: no symptoms reported, weakness EENTM: no symptoms reported Respiratory: no symptoms reported Cardiovascular: no symptoms reported Gastrointestinal: no symptoms reported Genitourinary: other (stress incontinence) Physical Exam-General Problems Physical Exam Vital Signs Vital Sign - Last 12Hours 04/07/17 14:20 Temp 99.5 Pulse 70 Resp 18 B/P (MAP) 131/75 Pulse Ox 95 O2 Delivery Room Air Capillary Refill : General Appearance: WD/WN, thin Eyes: Bilateral Eye Normal Inspection HEENT: normal ENT inspection Neck: full range of motion, normal inspection Respiratory: chest non-tender, lungs clear, normal breath sounds, no respiratory distress, no accessory muscle use Cardiovascular: regular rate, rhythm, no murmur Gastrointestinal: non tender, soft, other (irritable bowel syndrome) Assessment/Plan Assessment/Plan Admission Diagnosis/Plan truncal ataxia. COPD GERD. Noncardiac chest pain. Irritable bowel syndrome. Frozen left shoulder Clinical Quality Measures DVT/VTE Risk/Contraindication: Risk Factor Score Per Nursin RFS Level Per Nursing on Admit: 4+=Very High PRINCE DA SILVA DO Apr 10, 2017 19:02
[2017-04-10] MEDS: LATANOPROST 0.005% (XALATAN) OPHTH SOLN 2.5 ML OU SCH (20:06)
--- NOTE | 2017-04-10 21:36 | PM & R (SOAP) Progress Note ---
Subjective Time Seen by Provider: 21:25 Subjective/Events-last exam Patient was seen in her room this AM Patient transfers with min assist but once standing has involuntary movements precluding Ambulation Review of Systems Neurological: Incoordination Objective Exam Last Set of Vital Signs Vital Signs Date Time Temp Pulse Resp B/P (MAP) Pulse Ox O2 Delivery O2 Flow Rate FiO2 04/10/17 20:47 Room Air 04/10/17 17:37 98.1 71 20 140/80 98 Capillary Refill : I&O Intake and Output 04/10/17 00:00 Intake Total 730 ml Balance 730 ml Intake Oral 730 ml # Voids 5 # Bowel Movements 1 General: Alert, Oriented X3, Cooperative, No Acute Distress HEENT: Atraumatic, PERRLA, EOMI, Mucous Memb Moist/[place] Neck: Supple, No JVD Lungs: Clear to Auscultation Heart: Regular Rate Abdomen: Normal Bowel Sounds, Soft, No Tenderness Extremities: No Edema Skin: No Rashes Neuro: Other (truncal ataxia) Results Lab Laboratory Tests 04/08/17 06:01: White Blood Count 3.6L, Red Blood Count 3.98L, Hemoglobin 11.7, Hematocrit 36, Mean Corpuscular Volume 91, Mean Corpuscular Hemoglobin 29, Mean Corpuscular Hemoglobin Concent 32, Red Cell Distribution Width 13.6, Platelet Count 172, Mean Platelet Volume 10.4, Neutrophils (%) (Auto) 46, Lymphocytes (%) (Auto) 36 , Monocytes (%) (Auto) 11, Eosinophils (%) (Auto) 7, Basophils (%) (Auto) 0, Neutrophils # (Auto) 1.6L, Lymphocytes # (Auto) 1.3, Monocytes # (Auto) 0.4, Eosinophils # (Auto) 0.3, Basophils # (Auto) 0.0, Sodium Level 143, Potassium Level 3.6, Chloride Level 114H, Carbon Dioxide Level 21, Anion Gap 8, Blood Urea Nitrogen 21H, Creatinine 0.69, Estimat Glomerular Filtration Rate > 60, BUN /Creatinine Ratio 30, Glucose Level 92, Calcium Level 8.9, Total Bilirubin 0.5, Aspartate Amino Transf (AST/SGOT) 19, Alanine Aminotransferase (ALT/SGPT) 9, Alkaline Phosphatase 60, Total Protein 6.0L, Albumin 3.7 Assessment/Plan Assessment Truncal ataxia diagnosed by Neurolgist OSH on diamox IBS on meds GERD on med Glaucoma on eye drops Plan Continue PT/OT ST has signed off Appreciate DR Simons note Team Conference 04/12/17 LIAM PATRICK MD Apr 10, 2017 21:36
--- NOTE | 2017-04-10 21:41 | Individualized Plan of Care ---
Individualized Plan of Care Rehab Nursing IPOC Order Admission Date Apr 07, 2017 at 13:40 Current Orders Orders Patient Visit (04/10/17 ) Exercise Therap, Ea 15 Min (04/10/17 ) Wheelchair Mgmt/Propulsn 15min (04/10/17 ) Functional Activities, Ea 15 (04/10/17 ) Patient Visit (04/10/17 ) Rehab Nursing Orders: Diseage Management, Edu in Press Rel Techn, Hydration Management, Nutrition Management, Pain Management Other Nursing Orders: Monitor for constipation and or Urinary retention or incontinence PT IPOC Problem List: Activity Tolerance, Functional Strength, Safety, Balance, Gait, Transfer, Bed Mobility Treatment Plan: Continue Plan of Care Bed Mobility, Education, Functional Activity Jeffrey, Functional Strength, Group Therapy, Gait, Safety, Therapeutic Exercise, Transfers Treatment Duration: Apr 28, 2017 Frequency: At least 5-7 days/Wk (IRF) Estimated Hrs Per Day: 1.5 hours per day OT IPOC Problems: Decreased UE Strength, Dependent Transfers, Impaired Funct Balance, Impaired Self-Care Skills OT Problems Pt would benefit from skilled OT to increase her independence in basic self care to allow her to safely return to her home to live with her and to decrease caregiver burden Plan of Care: ADL Retraining, Caregiver Training, Functional Mobility, Group Exercise/Act as Ind (education, exercise, socialization, functional activities, activity tolerance), UE Funct Exercise/Act, UE Neuromus Re-Ed/Coord Treatment Duration: Apr 28, 2017 Frequency: Twice Daily (5- 6 days a week) Estimated Hrs Per Day: 1.[address] IPOC Speech Therapy Treatment Plan: Discontinue ST Frequency: Modified Program (IRF) Estimated Hrs Per Day: .25 hour per day (The patient will not receive skilled speech pathology services.) Physician IPOC Medical Issues being managed closely and that require the 24 hour availability of a physician:GERD, truncal ataxia, IBS Medical Issues: DVT Prophylaxis, Falls Precautions, Fluid/Electrolyte/ Nutrition Balance, Infection Protection, Other (List) (as per above) Brief Synthesis of Preadmission Screen, Post-Admission Evaluation, and Therapy Evaluations: 76 yo female who developed truncal ataxia with a decline in functional independence Diagnosis made at OSH and Patient placed on Diamox for treatment Had been Independent and living with her retired spouse in [facility] IBS Glaucoma and GERD Medical Prognosis: fair Anticipated Length of Stay: 04-28-17 Rehab Goals Modified Independent to supervsion for adls and mobility skills at the w/c level Truncal ataxia fairly severe and may preclude functional ambulation Anticipated discharge destinat: Home with spouse with [facility] LIAM PATRICK MD Apr 10, 2017 21:41
[2017-04-11 05:04] VITALS: BP 150/62
[2017-04-11] MEDS: PANTOPRAZOLE 40 MG (PROTONIX) TAB PO SCH (05:38)
--- NOTE | 2017-04-11 08:43 | Progress Note (SOAP) ---
Subjective Time Seen by Provider: 08:20 Subjective/Events-last exam truncal ataxia. Patient does better when bent over. Patient has a lot of problems when tries to stand up Objective Exam Vital Signs Date Time Temp Pulse Resp B/P (MAP) Pulse Ox O2 Delivery O2 Flow Rate FiO2 04/11/17 05:04 97.4 64 18 150/62 99 Room Air 04/10/17 20:47 Room Air 04/10/17 17:37 98.1 71 20 140/80 98 Room Air I & O 04/11/17 07:00 Intake Total 1150 ml Balance 1150 ml Capillary Refill : General Appearance: WD/WN HEENT: Normal ENT Inspection Neck: Normal Inspection Respiratory: Chest Non Tender, Lungs Clear, Normal Breath Sounds, No Accessory Muscle Use, No Respiratory Distress Cardiovascular: Regular Rate, Rhythm, No Murmur Gastrointestinal: non tender, soft Assessment/Plan Assessment/Plan Assess & Plan/Chief Complaint truncal ataxia. COPD GERD. Noncardiac chest pain. Irritable bowel syndrome. Frozen left shoulder. . 04/11/17. Truncal ataxia. COPD. GERd. Frozen left shoulder. Patient has problems standing up Clinical Quality Measures DVT/VTE Risk/Contraindication: Risk Factor Score Per Nursin RFS Level Per Nursing on Admit: 4+=Very High PRINCE DA SILVA DO Apr 11, 2017 08:43
--- NOTE | 2017-04-11 08:55 | Physical Therapy Daily Note ---
PT Daily Note-Current Subjective Patient in wheelchair pre tx, has no complaints of pain. Appearance Patient in wheelchair in her room with her post tx, has nurse call, phone, tray, all needs met. Mental Status Patient Orientation: Normal For Age Transfers Functional [place] Measure 0=Not Assessed/NA 4=Minimal Assistance 1=Total Assistance 5=Supervision or Setup 2=Maximal Assistance 6=Modified [place] 3=Moderate Assistance 7=Complete IndependenceIRFPAI Quality Coding Scale 6 Independent with activity with or without an assistive device 5 Patient requires set up or clean up by helper. Patient completes activity by themselves 4 Supervision or touching assist (CGA). [place] provide cues , steadying assist 3 The helper provides less than half the effort to complete the activity 2 The helper provides more than half the effort to complete the activity 1 Dependent. The helper does all the effort to complete an activity 7 Patient refused to complete or attempt activity 9 The patient did not perform the activity before the current illness or injury 88 Not attempted due to Medical conditions or safety concerns Transfers (B, C, W/C) (FIM): 4 Scootin Rollin Supine to/from Sit: 6 Bed to/from Chair: 4 Patient can perform a stand pivot transfer with min assist but she needs detailed cues for positioning or her ataxia will be "triggered". She has to keep her knees bent, flexed at the hips, and head down, she still usually has some ballistic movement but it is much reduced in this position. Wheelchair Training Wheelchair (FIM): 6 Distance: 150'x2 Type of Wheelchair: Manual Exercises Patient stood in the parallel bars x2 with therapist providing assist with balance and compression on her upper body (basically a bear hug), her ballistic movements were reduced somewhat but it could be just from her having to try to move against resistance. She also got on a tilt table and therapist attempted to stand her that way. Her ballistic movements started when patient was at about 45 degrees, she was able to perform 15 mini-squats but heel raises seemed to increase her ataxia. NuStep Minutes: 15 NuStep Workload: 6 Treatments bed mobility and transfer training, functional strengthening, wheelchair mobility Assessment Current Status: Poor Progress no change in mobility, patient's severe ballistic trunk movement prevents her from ambulating PT Short Term Goals Short Term Goals Time Frame: Apr 14, 2017 Gait (FIM): 1 Gait Distance Comment: 20' Gait Level of Assist: 3 Wheelchair Distance: 150'x2 PT Jail Goals Geotechnical Laboratory Technician Goals PT Jail Goals Time Frame: Apr 28, 2017 Transfers (B,C,W/C) (FIM): 4 Sit to Lying (QC): 6 Lying-Sitting on Side/Bed(QC): 6 Sit to Stand (QC): 4 Rollin Roll Left to Right (QC): 6 Chair/Qcz-rz-[id number] Xfer(QC): 4 Gait (FIM): 2 Distance: 50' Walk 10 feet (QC): 3 Walk 50ft with 2 Turns (QC): 3 PT Plan Problem List Problem List: Activity Tolerance, Functional Strength, Safety, Balance, Gait, Transfer Treatment/Plan Treatment Plan: Continue Plan of Care Treatment Plan: Bed Mobility, Education, Functional Activity Jeffrey, Functional Strength, Group Therapy, Gait, Safety, Therapeutic Exercise, Transfers Treatment Duration: Apr 28, 2017 Frequency: At least 5-7 days/Wk (IRF) Estimated Hrs Per Day: 1.5 hours per day Patient and/or Family Agrees t: Yes Safety Risks/Education Patient Education: Transfer Techniques, Correct Positioning, W/C Management, Safety Issues Teaching Recipient: Patient Teaching Methods: Demonstration, Discussion Response to Teaching: Reinforcement Needed Time/GCodes Time In: 800 Time Out: 900 Total Billed Treatment Time: 60 Total Billed Treatment 1 visit EX 30' [facility] 10' FA 20' TANJA FELIX PT Apr 11, 2017 08:55
[2017-04-11] MEDS: COLAZAL PO SCH ×2 (09:06→20:58)
--- NOTE | 2017-04-11 12:43 | Occupational Ther Daily Note ---
OT Current Status-Daily Note Subjective Pt alert, sitting in w/c. present in room. No c/o pain. Agreed to therapy. Mental Status/Objective Patient Orientation: Person, Place, Time, Situation Functional [place] Measure 0=Not Assessed/NA 4=Minimal Assistance 1=Total Assistance 5=Supervision or Setup 2=Maximal Assistance 6=Modified [place] 3=Moderate Assistance 7=Complete [place] ADL-Treatment Pt maneuvered w/c to bathroom to take shower. Min A with modified stand pivot transfer from w/c to wheeled shower chair (hips and knees bent to decrease ataxic movements). Pt able to complete all bathing sitting in rolling shower chair using hand held shower. Pt requested to dress in bed. Pt had already retrieved clothing prior to therapy. Pt able to don pants and underwear lying in bed. Sitting on EOB pt donned shirt and socks/shoes. Pt stated that she has tub seat in tub at home. MATTHEW discussed using a tub transfer bench at home. Pt then went to gym and transferred to mat table to work on strengthening core and crossing midline activities. Pt then maneuvered w/c back to room. After therapy, pt sitting in w/c with present. Call light/phone in reach. All needs met in room. Functional [place] Measure 0=Not Assessed/NA 4=Minimal Assistance 1=Total Assistance 5=Supervision or Setup 2=Maximal Assistance 6=Modified [place] 3=Moderate Assistance 7=Complete IndependenceIRFPAI Quality Coding Scale 6 Independent with activity with or without an assistive device 5 Patient requires set up or clean up by helper. Patient completes activity by themselves 4 Supervision or touching assist (CGA). [place] provide cues , steadying assist 3 The helper provides less than half the effort to complete the activity 2 The helper provides more than half the effort to complete the activity 1 Dependent. The helper does all the effort to complete an activity 7 Patient refused to complete or attempt activity 9 The patient did not perform the activity before the current illness or injury 88 Not attempted due to Medical conditions or safety concerns Grooming (FIM): 6 Bathing (FIM): 5 Upper Body (FIM): 6 Lower Body Dressing (FIM): 6 Transfers (B, C, W/C) (FIM): 4 Shower Transfer(FIM): 4 OT Short Term Goals Short Term Goals Time Frame: Apr 21, 2017 Toilet/Commode Transfer(FIM): 4 Shower Transfer(FIM): 4 Additional Short Term Goals: 2-Verbalize Understanding, 3-ImproveStrength/Jeffrey 1=Demonstrate adherence to instructed precautions during ADL tasks. 2=Patient will verbalize/demonstrate understanding of assistive devices/ modifications for ADL. 3=Patient will improve strength/tolerance for activity to enable patient to perform ADL's. OT Alf Goals Cavalry Scout Goals Time Frame: Apr 28, 2017 Eating (FIM): 6 Eating (QC): 6 Groomin Oral Hygiene (QC): 6 Bathing(FIM): 6 Shower/Bathe Self (QC): 6 Upper Body Dressing(FIM): 6 Upper Body Dressing (QC): 6 Lower Body Dressing(FIM): 6 Lower Body Dressing (QC): 6 On/Off Footwear (QC): 6 Toileting(FIM): 5 Toileting Hygiene (QC): 5 Toilet/Commode Transfer(FIM): 5 Toilet/Commode Transfer (QC): 5 Shower Transfer(FIM): 5 Will plan for goals to be at bed or w/c level and progress to include standing as tolerated Additional Goals: 2-Verbalize Understanding, 3-ImproveStrength/Jeffrey 1=Demonstrate adherence to instructed precautions during ADL tasks. 2=Patient will verbalize/demonstrate understanding of assistive devices/ modifications for ADL. 3=Patient will improve strength/tolerance for activity to enable patient to perform ADL's. OT Education/Plan Problem List/Assessment Pt would benefit from skilled OT to increase her independence in basic self care to allow her to safely return to her home to live with her and to decrease caregiver burden Discharge Recommendations Plan/Recommendations: Continue POC Treatment Plan/Plan of Care Patient would benefit from OT for education, treatment and training to promote independence in ADL's, mobility, safety and/or upper extremity function for ADL' s. Plan of Care: ADL Retraining, Caregiver Training, Functional Mobility, Group Exercise/Act as Ind (education, exercise, socialization, functional activities, activity tolerance), UE Funct Exercise/Act, UE Neuromus Re-Ed/Coord Treatment Duration: Apr 28, 2017 Frequency: Twice Daily (5- 6 days a week) Estimated Hrs Per Day: 1.5 hours per day Rehab Potential: Guarded Time/GCodes Start Time: 07:00 Stop Time: 08:00 Total Time Billed (hr/min): 60 Billed Treatment Time 1 visit-ADL 2 (30 min) FA 2 (30 min) JEANNIE FIELDS Apr 11, 2017 12:43
--- NOTE | 2017-04-11 13:51 | PM & R (SOAP) Progress Note ---
Subjective Time Seen by Provider: 08:15 Subjective/Events-last exam Patient was seen in her room this AM Discussed case with PT and Patients spouse. Patient min to mod assist for transfers Standing difficult due to spasms /uncontrolled movement of trunk.Current labs reviewed Review of Systems Neurological: Other (involuntary movements) Objective Exam Last Set of Vital Signs Vital Signs Date Time Temp Pulse Resp B/P (MAP) Pulse Ox O2 Delivery O2 Flow Rate FiO2 04/11/17 09:00 Room Air 04/11/17 05:04 97.4 64 18 150/62 99 Capillary Refill : I&O Intake and Output 04/11/17 00:00 Intake Total 1000 ml Balance 1000 ml Intake Oral 1000 ml # Voids 6 # Bowel Movements 1 General: Alert, Oriented X3, Cooperative, No Acute Distress HEENT: Atraumatic, PERRLA, EOMI, Mucous Memb Moist/[place] Neck: Supple, No JVD Lungs: Clear to Auscultation Heart: Regular Rate Abdomen: Normal Bowel Sounds, Soft, No Tenderness Extremities: No Edema Skin: No Rashes Neuro: Other (truncal ataxia) Assessment/Plan Assessment Truncal ataxia diagnosed by Neurolgist OSH on diamox IBS on meds GERD on med Glaucoma on eye drops Plan Continue PT/OT ST has signed off Appreciate DR Simons note Team Conference tomorrow 04/12/17 LIAM PATRICK MD Apr 11, 2017 13:51
[2017-04-11] MEDS: acetaZOLAMIDE 250 MG (DIAMOX) TAB PO SCH (14:12)
--- NOTE | 2017-04-11 15:09 | Therapy Group Daily Note ---
Therapy Daily Group Note Patient Education Topic Home Safety Other/Notes Pt maneuvered w/c to therapy gym for OT/PT group. OT/PT group consisted of introductions (name, place living, what you do to make things easier/safer at home), ARU weekly meeting description, and home safety education and discussion. Education on stair safety with FWW and/or rails then tripping hazards and solutions in living areas and bathroom. Pt contributed to discussions with accurate information. After group, pt sitting in w/c in room with call light/phone in reach. All needs met in room. Start Time: 13:00 Stop Time: 14:15 Total Billed Treatment Time: 75 Total Billed Treatment 1-GRP JEANNIE FIELDS Apr 11, 2017 15:09
[2017-04-11 18:43] VITALS: BP 141/93
[2017-04-11] MEDS: LATANOPROST 0.005% (XALATAN) OPHTH SOLN 2.5 ML OU SCH (20:59)
[2017-04-12] MEDS: PANTOPRAZOLE 40 MG (PROTONIX) TAB PO SCH (06:04)
[2017-04-12 06:59] VITALS: BP 148/77
--- NOTE | 2017-04-12 08:50 | Progress Note (SOAP) ---
Subjective Time Seen by Provider: 08:45 Subjective/Events-last exam truncal ataxia. Patient still having problems standing up. Patient denies. Patient does well in a wheelchair Objective Exam Vital Signs Date Time Temp Pulse Resp B/P (MAP) Pulse Ox O2 Delivery O2 Flow Rate FiO2 04/12/17 06:59 98.1 65 20 148/77 97 Room Air 04/11/17 20:10 Room Air 04/11/17 18:43 97.9 74 18 141/93 97 04/11/17 09:00 Room Air I & O 04/12/17 07:00 Intake Total 890 ml Output Total 1 ml Balance 889 ml Capillary Refill : General Appearance: No Apparent Distress, Thin Assessment/Plan Assessment/Plan Assess & Plan/Chief Complaint truncal ataxia. COPD GERD. Noncardiac chest pain. Irritable bowel syndrome. Frozen left shoulder. . 04/11/17. Truncal ataxia. COPD. GERd. Frozen left shoulder. Patient has problems standing up. . 04/12/17. Truncal ataxia. COPD. GERD. Patient still having problems Clinical Quality Measures DVT/VTE Risk/Contraindication: Risk Factor Score Per Nursin RFS Level Per Nursing on Admit: 4+=Very High PRINCE DA SILVA DO Apr 12, 2017 08:50
--- NOTE | 2017-04-12 09:02 | Physical Therapy Daily Note ---
PT Daily Note-Current Subjective Patient in wheelchair pre tx, agrees to PT, no complaints of pain. Appearance Patient in wheelchair post tx Mental Status Patient Orientation: Normal For Age Transfers Functional [place] Measure 0=Not Assessed/NA 4=Minimal Assistance 1=Total Assistance 5=Supervision or Setup 2=Maximal Assistance 6=Modified [place] 3=Moderate Assistance 7=Complete IndependenceIRFPAI Quality Coding Scale 6 Independent with activity with or without an assistive device 5 Patient requires set up or clean up by helper. Patient completes activity by themselves 4 Supervision or touching assist (CGA). [place] provide cues , steadying assist 3 The helper provides less than half the effort to complete the activity 2 The helper provides more than half the effort to complete the activity 1 Dependent. The helper does all the effort to complete an activity 7 Patient refused to complete or attempt activity 9 The patient did not perform the activity before the current illness or injury 88 Not attempted due to Medical conditions or safety concerns Transfers (B, C, W/C) (FIM): 4 Sit to/from Stand: 4 Bed to/from Chair: 4 Patient performs a modified squat pivot transfer with flexion at the hips and knees and head down, to prevent excessive spinal movement. Gait Training Attempted to try to stand and ambulate using a bilateral platform walker but patient's excessive spinal movement was too bad to attempt this. Wheelchair Training Wheelchair (FIM): 6 Distance: 150'x2 Type of Wheelchair: Manual Exercises NuStep Minutes: 15 NuStep Workload: 6 Treatments functional strengthening, transfers, patient stood in the parallel bars with flexed knees and hips and was able to stand for about 1 min each time before excessive spinal movement Assessment Current Status: Poor Progress No change in mobility. Discussed discharge planning with patient and treatment progress. PT Short Term Goals Short Term Goals Time Frame: Apr 14, 2017 Gait (FIM): 1 Gait Distance Comment: 20' Gait Level of Assist: 3 Wheelchair Distance: 150'x2 PT Prison Goals Clinical Director Goals PT Clinical Director Goals Time Frame: Apr 28, 2017 Transfers (B,C,W/C) (FIM): 4 Sit to Lying (QC): 6 Lying-Sitting on Side/Bed(QC): 6 Sit to Stand (QC): 4 Rollin Roll Left to Right (QC): 6 Chair/Upx-ae-Psfyb Xfer(QC): 4 Gait (FIM): 2 Distance: 50' Walk 10 feet (QC): 3 Walk 50ft with 2 Turns (QC): 3 PT Plan Problem List Problem List: Activity Tolerance, Functional Strength, Safety, Balance, Gait, Transfer, Bed Mobility Treatment/Plan Treatment Plan: Continue Plan of Care Treatment Plan: Bed Mobility, Education, Functional Activity Jeffrey, Functional Strength, Group Therapy, Gait, Safety, Therapeutic Exercise, Transfers Treatment Duration: Apr 28, 2017 Frequency: At least 5-7 days/Wk (IRF) Estimated Hrs Per Day: 1.5 hours per day Patient and/or Family Agrees t: Yes Safety Risks/Education Patient Education: Transfer Techniques, Correct Positioning, W/C Management, Safety Issues Teaching Recipient: Patient Teaching Methods: Demonstration, Discussion Response to Teaching: Reinforcement Needed Time/GCodes Time In: 800 Time Out: 900 Total Billed Treatment Time: 60 Total Billed Treatment [address] visit [address] 15' [facility] 15' FA 30' TANJA FELIX PT Apr 12, 2017 09:02
--- NOTE | 2017-04-12 09:21 | PM & R (SOAP) Progress Note ---
Subjective Time Seen by Provider: 08:50 Subjective/Events-last exam Patient was seen in her room this AM Patient still having difficulty with transfers due to involuntary movement -truncal ataxia Patient and spouse ask about reimaging T and L spine There is a hx of syringomyelia according to records diagnosed at [facility].Apparently Head and C spine were only checked recently. Review of Systems Neurological: Incoordination Objective Exam Last Set of Vital Signs Vital Signs Date Time Temp Pulse Resp B/P (MAP) Pulse Ox O2 Delivery O2 Flow Rate FiO2 04/12/17 06:59 98.1 65 20 148/77 97 Room Air Capillary Refill : I&O Intake and Output 04/12/17 00:00 Intake Total 840 ml Output Total 1 ml Balance 839 ml Intake Oral 840 ml Output Stool Total 1 ml # Voids 6 General: Alert, Oriented X3, Cooperative, No Acute Distress HEENT: Atraumatic, PERRLA, EOMI, Mucous Memb Moist/[place] Neck: Supple, No JVD Lungs: Clear to Auscultation Heart: Regular Rate Abdomen: Normal Bowel Sounds, Soft, No Tenderness Extremities: No Edema Skin: No Rashes Neuro: Other (truncal ataxia) Assessment/Plan Assessment 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 LIAM PATRICK MD Apr 12, 2017 09:20
[2017-04-12] MEDS: COLAZAL PO SCH ×2 (09:56→20:16)
--- NOTE | 2017-04-12 11:08 | Diagnostic Imaging Report ---
PROCEDURE: MRI lumbar spine. TECHNIQUE: Multiplanar, multisequence MRI of the lumbar spine was performed without contrast. INDICATION: Truncal ataxia. FINDINGS: The spine curvature around the upper and mid lumbar spine is straightened which could be secondary to muscle spasm. The alignment of the posterior spinal line is satisfactory. The vertebral body heights are preserved. Disc heights are also preserved. There is mild disc desiccation particularly in the lower lumbar spine. The cauda equina and conus medullaris appear grossly unremarkable. T12/L1: No disc herniation, no spinal canal or foraminal stenosis. There are perineural cysts in the foramina up to 7 mm in size bilaterally. L1/2: No significant abnormality. L2/3: No disc herniation. There is mild facet hypertrophy. No spinal canal or foraminal stenosis. L3/4: There is minimal diffuse disc bulge. There is [id number] facet hypertrophy. No central canal, lateral recess or foraminal stenosis. L4/5: There is moderate facet and ligamentous hypertrophy. There is no disc herniation. No spinal canal or foraminal stenosis. L5/S1: There is a diffuse disc bulge and an annular tear. There is moderate facet hypertrophy and ligamentum flavum thickening. No central canal stenosis. The lateral recess demonstrates moderate stenosis bilaterally worse on the left side abutting and perhaps minimally compressing the descending left S1 nerve root. The foramina demonstrate minimal narrowing bilaterally. IMPRESSION: Relatively mild degenerative changes. There is bilateral moderate lateral recess stenosis at L5/S1 more on the left side, abutting the descending left S1 nerve roots. Dictated by: Dictated on workstation # [id number]
--- NOTE | 2017-04-12 11:26 | Occupational Ther Daily Note ---
OT Current Status-Daily Note Subjective Pt alert, sitting in w/c. present in room. Pt agreed to therapy. No c /o pain. Mental Status/Objective Patient Orientation: Person, Place, Time, Situation Functional [place] Measure 0=Not Assessed/NA 4=Minimal Assistance 1=Total Assistance 5=Supervision or Setup 2=Maximal Assistance 6=Modified [place] 3=Moderate Assistance 7=Complete [place] ADL-Treatment Functional [place] Measure 0=Not Assessed/NA 4=Minimal Assistance 1=Total Assistance 5=Supervision or Setup 2=Maximal Assistance 6=Modified [place] 3=Moderate Assistance 7=Complete IndependenceIRFPAI Quality Coding Scale 6 Independent with activity with or without an assistive device 5 Patient requires set up or clean up by helper. Patient completes activity by themselves 4 Supervision or touching assist (CGA). [place] provide cues , steadying assist 3 The helper provides less than half the effort to complete the activity 2 The helper provides more than half the effort to complete the activity 1 Dependent. The helper does all the effort to complete an activity 7 Patient refused to complete or attempt activity 9 The patient did not perform the activity before the current illness or injury 88 Not attempted due to Medical conditions or safety concerns Grooming (FIM): 6 (At w/c level, pt is able to complete.) Oral Hygiene (QC): 6 (At w/c level pt is able to complete.) Bathing (FIM): 5 (Set up. Pt uses rolling shower chair with cutout to bathe buttocks without standing. Pt is able to complete bathing/drying by self.) Bathing Location: L Arm, R Arm, L Upper Leg, R Upper Leg, L Lower Leg ( including foot), R Lower Leg (including foot), Chest, Abdomen, Buttocks, Perineal Area Shower/Bathe Self (QC): 5 (Set up. Pt uses rolling shower chair with cutout to bathe buttocks without standing. Pt is able to complete bathing/drying by self.) Upper Body (FIM): 6 (Retrieves clothing at w/c level, is able to don/doff clothing by self.) Upper Body Dressing (QC): 6 (Retrieves clothing at w/c level, is able to don/ doff clothing by self.) Lower Body Dressing (FIM): 6 (Retrieves clothing at w/c level, is able to don/ doff clothing by self. Lying in bed to pull up pants/underwear then sitting on EOB to don/doff socks/shoes.) Lower Body Dressing (QC): 6 (Retrieves clothing at w/c level, is able to don/ doff clothing by self. Lying in bed to pull up pants/underwear then sitting on EOB to don/doff socks/shoes.) On/Off Footwear (QC): 6 (Lying in bed to pull up pants/underwear then sitting on EOB to don/doff socks/shoes.) Toileting (FIM): 5 (Supervision for safety while using regular toilet. Pt is able to sit to cleanse self and manipulate clothing.) Toileting Hygiene (QC): 4 (Supervision for safety while using regular toilet. Pt is able to sit to cleanse self and manipulate clothing.) Transfers (B, C, W/C) (FIM): 4 (Modified stand pivot transfer, keeping hips and knees at 45* of flexion, no extension pt is able to complete with min A.) Toilet/Commode Transfer (FIM): 4 (Modified stand pivot transfer, keeping hips and knees at 45* of flexion, no extension pt is able to complete with min A.) Toilet Transfer (QC): 3 (Modified stand pivot transfer, keeping hips and knees at 45* of flexion, no extension pt is able to complete with min A.) Shower Transfer(FIM): 4 (Modified stand pivot transfer, keeping hips and knees at 45* of flexion, no extension pt is able to complete with min A to rolling shower chair.) Other Treatment Pt maneuvered w/c to therapy gym. Transferred to mat with min A to lay supine. Pt complete crossing midline activity in supine then rolled over in prone. Extending/hyper extension opposite LE and UE in supine without ataxic movements then bilateral extension of UE/LE without ataxic movement. Pt then extended B arms to push chest up off of mat, no ataxic movements. With arms extended pt attempted to bring knees to four point position when ataxic movements began. Sidelying with one leg extended and other bent, rolled over toward prone to attempt to get into four point position. As knee became wt. bearing ataxic movements started. Pt independent with bed mobility, sat up on EOB without difficulty. After therapy, pt sitting in w/c with call light/phone in reach. present in room. All needs met in room. OT Short Term Goals Short Term Goals Time Frame: Apr 21, 2017 Toilet/Commode Transfer(FIM): 4 Shower Transfer(FIM): 4 Additional Short Term Goals: 2-Verbalize Understanding, 3-ImproveStrength/Jeffrey 1=Demonstrate adherence to instructed precautions during ADL tasks. 2=Patient will verbalize/demonstrate understanding of assistive devices/ modifications for ADL. 3=Patient will improve strength/tolerance for activity to enable patient to perform ADL's. OT Intermediate Goals Chicken Raiser Goals Time Frame: Apr 28, 2017 Eating (FIM): 6 Eating (QC): 6 Groomin Oral Hygiene (QC): 6 Bathing(FIM): 6 Shower/Bathe Self (QC): 6 Upper Body Dressing(FIM): 6 Upper Body Dressing (QC): 6 Lower Body Dressing(FIM): 6 Lower Body Dressing (QC): 6 On/Off Footwear (QC): 6 Toileting(FIM): 5 Toileting Hygiene (QC): 5 Toilet/Commode Transfer(FIM): 5 Toilet/Commode Transfer (QC): 5 Shower Transfer(FIM): 5 Will plan for goals to be at bed or w/c level and progress to include standing as tolerated Additional Goals: 2-Verbalize Understanding, 3-ImproveStrength/Jeffrey 1=Demonstrate adherence to instructed precautions during ADL tasks. 2=Patient will verbalize/demonstrate understanding of assistive devices/ modifications for ADL. 3=Patient will improve strength/tolerance for activity to enable patient to perform ADL's. OT Education/Plan Problem List/Assessment Pt would benefit from skilled OT to increase her independence in basic self care to allow her to safely return to her home to live with her and to decrease caregiver burden Discharge Recommendations Plan/Recommendations: Continue POC Treatment Plan/Plan of Care Patient would benefit from OT for education, treatment and training to promote independence in ADL's, mobility, safety and/or upper extremity function for ADL' s. Plan of Care: ADL Retraining, Caregiver Training, Functional Mobility, Group Exercise/Act as Ind (education, exercise, socialization, functional activities, activity tolerance), UE Funct Exercise/Act, UE Neuromus Re-Ed/Coord Treatment Duration: Apr 28, 2017 Frequency: Twice Daily (5- 6 days a week) Estimated Hrs Per Day: 1.5 hours per day Rehab Potential: Guarded Time/GCodes Start Time: 07:00 Stop Time: 08:00 Total Time Billed (hr/min): 60 Billed Treatment Time 1 visit-ADL 2 (30 min) NM 2 (30 min) JEANNIE FIELDS Apr 12, 2017 11:26
--- NOTE | 2017-04-12 11:26 | Diagnostic Imaging Report ---
EXAMINATION: Multiplanar/multisequence MRI of the thoracic spine. INDICATION: The patient is unable to walk. Involuntary movements. 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 Also, fusion of the posterior elements at this level is suggested. There is also a small syrinx suggested at the C6-C7 junction. The thoracic segments of the spinal cord appear normal. Otherwise, the thoracic spine demonstrates normal alignment of the posterior spinal line and facet joints. There is no significant disc herniation at any level. No spinal canal stenosis at any level. The foramina are generally patent although there are multilevel multiple perineural cysts seen in the foramina. The marrow signal is within normal limits. There is minimal disc desiccation signal at multiple levels. IMPRESSION: Partially visualized anomalies in the cervical vertebral bodies are suggested. This includes fused vertebra and vertebral structural anomalies. A dedicated cervical spine MRI ordered with a coronal series could be helpful. Abnormalities also include a small focal syrinx around the lower aspect of the cervical spine. The vertebral fusion in the lower cervical spine also involves the T1 and T2 levels. In the thoracic segments, however, there is no spinal cord abnormality and there is no spinal canal stenosis at any level. Dictated by: Dictated on workstation # [id number]
--- NOTE | 2017-04-12 14:02 | Physical Therapy Daily Note ---
PT Daily Note-Current Subjective Patient in wheelchair pre tx, agrees to PT, has no complaints of pain. Appearance Patient in wheelchair post tx in her room with her . Mental Status Patient Orientation: Normal For Age Transfers Functional [place] Measure 0=Not Assessed/NA 4=Minimal Assistance 1=Total Assistance 5=Supervision or Setup 2=Maximal Assistance 6=Modified [place] 3=Moderate Assistance 7=Complete IndependenceIRFPAI Quality Coding Scale 6 Independent with activity with or without an assistive device 5 Patient requires set up or clean up by helper. Patient completes activity by themselves 4 Supervision or touching assist (CGA). [place] provide cues , steadying assist 3 The helper provides less than half the effort to complete the activity 2 The helper provides more than half the effort to complete the activity 1 Dependent. The helper does all the effort to complete an activity 7 Patient refused to complete or attempt activity 9 The patient did not perform the activity before the current illness or injury 88 Not attempted due to Medical conditions or safety concerns Transfers (B, C, W/C) (FIM): 4 Bed to/from Chair: 4 modified squat pivot transfer min assist Exercises Patient performed sit to stand 3 sets of 10 (did not stand completely, had to keep in a squatting position), LAQ alternating for 5 min with 2# ankle weights, seated hip flexion x20, hip add/abd x20 Treatments transfers, functional strengthening Assessment Current Status: Poor Progress Patient has made a little progress with transfers PT Short Term Goals Short Term Goals Time Frame: Apr 14, 2017 Gait (FIM): 1 Gait Distance Comment: 20' Gait Level of Assist: 3 Wheelchair Distance: 150'x2 PT Detention Goals Phosphoric Acid Operator Goals PT Phosphoric Acid Operator Goals Time Frame: Apr 28, 2017 Transfers (B,C,W/C) (FIM): 4 Sit to Lying (QC): 6 Lying-Sitting on Side/Bed(QC): 6 Sit to Stand (QC): 4 Rollin Roll Left to Right (QC): 6 Chair/Cwm-xw-Fgrsq Xfer(QC): 4 Gait (FIM): 2 Distance: 50' Walk 10 feet (QC): 3 Walk 50ft with 2 Turns (QC): 3 PT Plan Problem List Problem List: Activity Tolerance, Functional Strength, Safety, Balance, Gait, Transfer, Bed Mobility Treatment/Plan Treatment Plan: Continue Plan of Care Treatment Plan: Bed Mobility, Education, Functional Activity Jeffrey, Functional Strength, Group Therapy, Gait, Safety, Therapeutic Exercise, Transfers Treatment Duration: Apr 28, 2017 Frequency: At least 5-7 days/Wk (IRF) Estimated Hrs Per Day: 1.5 hours per day Patient and/or Family Agrees t: Yes Safety Risks/Education Patient Education: Transfer Techniques, Correct Positioning, Safety Issues Teaching Recipient: Patient Teaching Methods: Demonstration, Discussion Response to Teaching: Reinforcement Needed Time/GCodes Time In: 1330 Time Out: 1400 Total Billed Treatment Time: 30 Total Billed Treatment 1 visit EX 30' TANJA FELIX PT Apr 12, 2017 14:02
--- NOTE | 2017-04-12 14:14 | Occupational Ther Daily Note ---
OT Current Status-Daily Note Mental Status/Objective Functional [place] Measure 0=Not Assessed/NA 4=Minimal Assistance 1=Total Assistance 5=Supervision or Setup 2=Maximal Assistance 6=Modified [place] 3=Moderate Assistance 7=Complete [place] ADL-Treatment Functional [place] Measure 0=Not Assessed/NA 4=Minimal Assistance 1=Total Assistance 5=Supervision or Setup 2=Maximal Assistance 6=Modified [place] 3=Moderate Assistance 7=Complete IndependenceIRFPAI Quality Coding Scale 6 Independent with activity with or without an assistive device 5 Patient requires set up or clean up by helper. Patient completes activity by themselves 4 Supervision or touching assist (CGA). [employer] provide cues , steadying assist 3 The helper provides less than half the effort to complete the activity 2 The helper provides more than half the effort to complete the activity 1 Dependent. The helper does all the effort to complete an activity 7 Patient refused to complete or attempt activity 9 The patient did not perform the activity before the current illness or injury 88 Not attempted due to Medical conditions or safety concerns Other Treatment Pt worked on tub/transfer bench transfers. present at education and transfer. At pt's home there is a tub seat. states that doorway into bathroom is 24" width. Min A for pt to transfer with a squat pivot transfer from w/c and back. Pt was able to lift own legs into tub and scoot into tub. Pt then maneuvered w/c to therapy gym to complete UE fine motor and strengthening. After therapy, pt sitting in room with present. Call light/phone in reach. All needs met in room. OT Short Term Goals Short Term Goals Time Frame: Apr 21, 2017 Toilet/Commode Transfer(FIM): 4 Shower Transfer(FIM): 4 Additional Short Term Goals: 2-Verbalize Understanding, 3-ImproveStrength/Jeffrey 1=Demonstrate adherence to instructed precautions during ADL tasks. 2=Patient will verbalize/demonstrate understanding of assistive devices/ modifications for ADL. 3=Patient will improve strength/tolerance for activity to enable patient to perform ADL's. OT Residential Goals Residential Goals Time Frame: Apr 28, 2017 Eating (FIM): 6 Eating (QC): 6 Groomin Oral Hygiene (QC): 6 Bathing(FIM): 6 Shower/Bathe Self (QC): 6 Upper Body Dressing(FIM): 6 Upper Body Dressing (QC): 6 Lower Body Dressing(FIM): 6 Lower Body Dressing (QC): 6 On/Off Footwear (QC): 6 Toileting(FIM): 5 Toileting Hygiene (QC): 5 Toilet/Commode Transfer(FIM): 5 Toilet/Commode Transfer (QC): 5 Shower Transfer(FIM): 5 Will plan for goals to be at bed or w/c level and progress to include standing as tolerated Additional Goals: 2-Verbalize Understanding, 3-ImproveStrength/Jeffrey 1=Demonstrate adherence to instructed precautions during ADL tasks. 2=Patient will verbalize/demonstrate understanding of assistive devices/ modifications for ADL. 3=Patient will improve strength/tolerance for activity to enable patient to perform ADL's. OT Education/Plan Problem List/Assessment Pt would benefit from skilled OT to increase her independence in basic self care to allow her to safely return to her home to live with her and to decrease caregiver burden Discharge Recommendations Plan/Recommendations: Continue POC Treatment Plan/Plan of Care Patient would benefit from OT for education, treatment and training to promote independence in ADL's, mobility, safety and/or upper extremity function for ADL' s. Plan of Care: ADL Retraining, Caregiver Training, Functional Mobility, Group Exercise/Act as Ind (education, exercise, socialization, functional activities, activity tolerance), UE Funct Exercise/Act, UE Neuromus Re-Ed/Coord Treatment Duration: Apr 28, 2017 Frequency: Twice Daily (5- 6 days a week) Estimated Hrs Per Day: 1.5 hours per day Rehab Potential: Guarded Time/GCodes Start Time: 13:00 Stop Time: 13:30 Total Time Billed (hr/min): 30 Billed Treatment Time 1 visit-FA 1 (15 min) EX 1 (15 min) JEANNIE FIELDS Apr 12, 2017 14:14
[2017-04-12] MEDS: acetaZOLAMIDE 250 MG (DIAMOX) TAB PO SCH (14:21)
[2017-04-12 18:00] VITALS: BP 135/78
[2017-04-12] MEDS: LATANOPROST 0.005% (XALATAN) OPHTH SOLN 2.5 ML OU SCH (20:16)
[2017-04-13 06:18] VITALS: BP 121/64
[2017-04-13] MEDS: PANTOPRAZOLE 40 MG (PROTONIX) TAB PO SCH (06:24)
--- NOTE | 2017-04-13 08:34 | PM & R (SOAP) Progress Note ---
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 and that Klonazapin may be helpful .This has been ordered -will se if improvement noted by staff Review of Systems Neurological: Incoordination Objective Exam Last Set of Vital Signs Vital Signs Date Time Temp Pulse Resp B/P (MAP) Pulse Ox O2 Delivery O2 Flow Rate FiO2 04/13/17 06:18 98.7 55 18 121/64 97 Room Air Capillary Refill : I&O Intake and Output 04/12/17 23:59 Intake Total 1600 ml Balance 1600 ml Intake Oral 1600 ml # Voids 6 # Bowel Movements 1 General: Alert, Oriented X3, Cooperative, No Acute Distress HEENT: Atraumatic, PERRLA, EOMI, Mucous Memb Moist/[place] Neck: Supple, No JVD Lungs: Clear to Auscultation Heart: Regular Rate Abdomen: Normal Bowel Sounds, Soft, No Tenderness Extremities: No Edema Skin: No Rashes Neuro: Other (truncal ataxia) Assessment/Plan Assessment 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
[2017-04-13] MEDS: COLAZAL PO SCH ×2 (08:36→20:53)
[2017-04-13] MEDS: clonazePAM 0.5 MG (KlonoPIN) TAB PO SCH (08:36)
--- NOTE | 2017-04-13 08:46 | Physical Therapy Daily Note ---
PT Daily Note-Current Subjective Patient in wheelchair pre tx, agrees to PT, no complaints of pain. Appearance Patient in wheelchair post tx with in her room. Mental Status Patient Orientation: Normal For Age Transfers Functional [place] Measure 0=Not Assessed/NA 4=Minimal Assistance 1=Total Assistance 5=Supervision or Setup 2=Maximal Assistance 6=Modified [place] 3=Moderate Assistance 7=Complete IndependenceIRFPAI Quality Coding Scale 6 Independent with activity with or without an assistive device 5 Patient requires set up or clean up by helper. Patient completes activity by themselves 4 Supervision or touching assist (CGA). [place] provide cues , steadying assist 3 The helper provides less than half the effort to complete the activity 2 The helper provides more than half the effort to complete the activity 1 Dependent. The helper does all the effort to complete an activity 7 Patient refused to complete or attempt activity 9 The patient did not perform the activity before the current illness or injury 88 Not attempted due to Medical conditions or safety concerns Transfers (B, C, W/C) (FIM): 4 Scootin Rollin Supine to/from Sit: 6 Bed to/from Chair: 4 bed mobility mod I, transfers min assist, cues for positioning, modified squat pivot transfer Wheelchair Training Wheelchair (FIM): 6 Distance: 150'x2 Type of Wheelchair: Manual Exercises Supine Ex: Bridging, Lower trunk rotation Supine Reps: 20 LAQ alternating with 2# ankle weights for 5 min, sit to stand 3 sets of 10 NuStep Minutes: 15 NuStep Workload: 5 Treatments bed mobility and transfers, functional strengthening Assessment Current Status: Fair Progress improving stand pivot transfer PT Short Term Goals Short Term Goals Time Frame: Apr 14, 2017 Gait (FIM): 1 Gait Distance Comment: 20' Gait Level of Assist: 3 Wheelchair Distance: 150'x2 PT Chcf Goals Chcf Goals PT Chcf Goals Time Frame: Apr 28, 2017 Transfers (B,C,W/C) (FIM): 4 Sit to Lying (QC): 6 Lying-Sitting on Side/Bed(QC): 6 Sit to Stand (QC): 4 Rollin Roll Left to Right (QC): 6 Chair/Svg-lu-Czhtc Xfer(QC): 4 Gait (FIM): 2 Distance: 50' Walk 10 feet (QC): 3 Walk 50ft with 2 Turns (QC): 3 PT Plan Problem List Problem List: Activity Tolerance, Functional Strength, Safety, Balance, Gait, Transfer Treatment/Plan Treatment Plan: Continue Plan of Care Treatment Plan: Bed Mobility, Education, Functional Activity Jeffrey, Functional Strength, Group Therapy, Gait, Safety, Therapeutic Exercise, Transfers Treatment Duration: Apr 28, 2017 Frequency: At least 5-7 days/Wk (IRF) Estimated Hrs Per Day: 1.5 hours per day Patient and/or Family Agrees t: Yes Safety Risks/Education Patient Education: Transfer Techniques, Correct Positioning, Safety Issues Teaching Recipient: Patient Teaching Methods: Demonstration, Discussion Response to Teaching: Reinforcement Needed Time/GCodes Time In: 800 Time Out: 845 Total Billed Treatment Time: 45 Total Billed Treatment 1 visit FA 15' EX 30' TANJA FELIX PT Apr 13, 2017 08:46
--- NOTE | 2017-04-13 08:49 | Progress Note (SOAP) ---
Subjective Time Seen by Provider: 08:45 Subjective/Events-last exam truncal ataxia. Patient can get alone in a wheelchair Soonest patient stands up has clonus problem Objective Exam Vital Signs Date Time Temp Pulse Resp B/P (MAP) Pulse Ox O2 Delivery O2 Flow Rate FiO2 04/13/17 06:18 98.7 55 18 121/64 97 Room Air 04/12/17 20:30 Room Air 04/12/17 18:00 98.6 67 18 135/78 98 Room Air 04/12/17 09:00 Room Air I & O 04/13/17 07:00 Intake Total 1570 ml Balance 1570 ml Capillary Refill : General Appearance: No Apparent Distress, Thin HEENT: Normal ENT Inspection Neck: Full Range of Motion, Normal Inspection Respiratory: Chest Non Tender, Lungs Clear, Normal Breath Sounds, No Accessory Muscle Use Assessment/Plan Assessment/Plan Assess & Plan/Chief Complaint truncal ataxia. COPD GERD. Noncardiac chest pain. Irritable bowel syndrome. Frozen left shoulder. . 04/11/17. Truncal ataxia. COPD. GERd. Frozen left shoulder. Patient has problems standing up. . 04/12/17. Truncal ataxia. COPD. GERD. Patient still having problems. . 04/13/17 truncal ataxia. COPD. GERD. Irritable bowel syndrome. Patient working progress. Has problems standing up Clinical Quality Measures DVT/VTE Risk/Contraindication: Risk Factor Score Per Nursin RFS Level Per Nursing on Admit: 4+=Very High PRINCE DA SILVA DO Apr 13, 2017 08:49
--- OUTSIDE RECORDS SUMMARY | 2017-04-13 11:54 | XMS REPORT | Clinical Summary ---
Author Author [facility] [place] Organization [facility] [place] Address Unknown Phone Unavailable Care Team Providers Care Grain Drier Operator Name Role Phone PCP Unavailable Source Comments Some departments are not documenting in the electronic medical record. If you do not see the information that you expected, contact Release of Information in the Health Information Management department at [phone] for further assistance in locating additional records.[facility] [place] Allergies No Known Allergies Current Medications Prescription Sig. Disp. Refills Start End Date Status Date LORazepam (ATIVAN) 1 mg Take 1 mg by mouth every Active tablet 4 hours as needed. balsalazide(+) (COLAZAL) Take 2,250 mg by mouth Active 750 mg cap three times daily. cyanocobalamin (VITAMIN Inject 1,000 mcg to Active B-12, RUBRAMIN) 1,000 area(s) as directed every mcg/mL injection 30 days. bisacodyl (DULCOLAX Insert or Apply 10 mg to Active (BISACODYL)) 10 mg rectal rectal area as directed suppository daily. sodium phosphate (FLEET Insert or Apply 1 Enema Active ENEMA) 19-7 gram/118 mL to rectal area as enema directed once. follow package directions latanoprost (XALATAN) Place 1 Drop into or Active 0.005 % ophthalmic around eye(s) at bedtime solution daily. promethazine/codeine Take 5 mL by mouth every Active (PHENERGAN W/CODEINE) 6 hours as needed. 6.25/10 mg/5 mL oral syrup pantoprazole [address] Take 40 mg by mouth Active (PROTONIX) 40 mg tablet daily. Multivitamin,Yx-Qcrx-Yikp Take by mouth. Active rals (THERA-M) tab acetaminophen (TYLENOL) Take 325 mg by mouth Active 325 mg tablet every 4 hours as needed. Acetazolamide 125 mg tab Take 2 Tabs by mouth 120 Tab 0 08/23/20 Active twice daily. 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 Family History Medical History Relation Name Comments Heart Attack Brother Hypertension Brother Stroke Brother Cancer Maternal colon Grandmother Cancer Mother brain Hypertension Mother Relation Name Status Comments Brother Alive Brother Father Maternal Grandfather Maternal Grandmother Mother Paternal Grandfather Paternal Grandmother Social History Tobacco Use Types Packs/Day Years Used Date Never Smoker Smokeless Tobacco: Never Used Alcohol Use Drinks/Week oz/Week Comments No Sex Assigned at Date Recorded Not on file Last Filed Vital Signs Vital Sign Reading Time Taken Blood Pressure 137/55 07/31/2013 1:47 PM CLEARANCE REP Pulse 73 07/31/2013 1:47 PM CLEARANCE REP Temperature 36.4 C (97.5 F) 07/31/2013 1:47 PM CLEARANCE REP Respiratory Rate - - Oxygen Saturation 100% 07/31/2013 1:47 PM CLEARANCE REP Inhaled Oxygen - - Concentration Weight 54.4 kg (120 lb) 07/31/2013 1:47 PM CLEARANCE REP Height 157.5 cm (5' 2") 07/31/2013 1:47 PM CLEARANCE REP Body Mass Index 21.95 07/31/2013 1:47 PM CLEARANCE REP Plan of Treatment Health Maintenance Due Date Last Done Comments PHYSICAL (COMPREHENSIVE) 1945 EXAM PERTUSSIS VACCINE 1949 TETANUS VACCINE 1955 SHINGLES VACCINE 1998 OSTEOPOROSIS SCREENING 2003 PREVNAR/PNEUMOVAX (#1) 2003 INFLUENZA VACCINE 05/19/2017 Results Not on filefrom Last 3 Months
[2017-04-13] MEDS: acetaZOLAMIDE 250 MG (DIAMOX) TAB PO SCH (14:36)
--- NOTE | 2017-04-13 14:42 | Occupational Ther Daily Note ---
OT Current Status-Daily Note Subjective Pt alert, sitting in w/c. present in room. Pt agreed to therapy. No c /o pain. Mental Status/Objective Patient Orientation: Person, Place, Time, Situation Functional [place] Measure 0=Not Assessed/NA 4=Minimal Assistance 1=Total Assistance 5=Supervision or Setup 2=Maximal Assistance 6=Modified [place] 3=Moderate Assistance 7=Complete [place] ADL-Treatment Functional [place] Measure 0=Not Assessed/NA 4=Minimal Assistance 1=Total Assistance 5=Supervision or Setup 2=Maximal Assistance 6=Modified [place] 3=Moderate Assistance 7=Complete IndependenceIRFPAI Quality Coding Scale 6 Independent with activity with or without an assistive device 5 Patient requires set up or clean up by helper. Patient completes activity by themselves 4 Supervision or touching assist (CGA). [place] provide cues , steadying assist 3 The helper provides less than half the effort to complete the activity 2 The helper provides more than half the effort to complete the activity 1 Dependent. The helper does all the effort to complete an activity 7 Patient refused to complete or attempt activity 9 The patient did not perform the activity before the current illness or injury 88 Not attempted due to Medical conditions or safety concerns Grooming (FIM): 6 (At w/c level, pt is able to complete grooming.) Bathing (FIM): 6 (Sitting on wheeled shower chair with cut out, pt is able to complete by self using hand held shower and group.) Bathing Location: L Arm, R Arm, L Upper Leg, R Upper Leg, L Lower Leg ( including foot), R Lower Leg (including foot), Chest, Abdomen, Buttocks, Perineal Area Upper Body (FIM): 6 (Retrieved at w/c level, pt is able to dress self.) Lower Body Dressing (FIM): 6 (Retrieved at w/c level, pt is able to dress self lying in bed.) Toileting (FIM): 6 (Sitting on toilet pt is able to cleanse self and manipulate clothing.) Transfers (B, C, W/C) (FIM): 4 (Using a squat pivot transfer pt is able to transfer with min A.) Toilet/Commode Transfer (FIM): 4 (Using squat pivot transfer, pt is able to complete transfer with min A.) Other Treatment Pt transferred onto therapy mat from w/c and back with min A using squat pivot transfer. Pt then completed core exercises with crossing midline. In sidelying , pt was able to extend base leg and bend other leg and roll to hands and knees with minimal to no ataxic movement for 1 min then had to lie back down. Pt complete 10 reps on each side. Pt then sat on edge of therapy mat to complete half sit to stand 10x's. After therapy, pt sitting in room with present. Call light/phone in reach. All needs met in room. OT Short Term Goals Short Term Goals Time Frame: Apr 21, 2017 Toilet/Commode Transfer(FIM): 4 Shower Transfer(FIM): 4 Additional Short Term Goals: 2-Verbalize Understanding, 3-ImproveStrength/Jeffrey 1=Demonstrate adherence to instructed precautions during ADL tasks. 2=Patient will verbalize/demonstrate understanding of assistive devices/ modifications for ADL. 3=Patient will improve strength/tolerance for activity to enable patient to perform ADL's. OT Senior Living Goals Senior Living Goals Time Frame: Apr 28, 2017 Eating (FIM): 6 Eating (QC): 6 Groomin Oral Hygiene (QC): 6 Bathing(FIM): 6 Shower/Bathe Self (QC): 6 Upper Body Dressing(FIM): 6 Upper Body Dressing (QC): 6 Lower Body Dressing(FIM): 6 Lower Body Dressing (QC): 6 On/Off Footwear (QC): 6 Toileting(FIM): 5 Toileting Hygiene (QC): 5 Toilet/Commode Transfer(FIM): 5 Toilet/Commode Transfer (QC): 5 Shower Transfer(FIM): 5 Will plan for goals to be at bed or w/c level and progress to include standing as tolerated Additional Goals: 2-Verbalize Understanding, 3-ImproveStrength/Jeffrey 1=Demonstrate adherence to instructed precautions during ADL tasks. 2=Patient will verbalize/demonstrate understanding of assistive devices/ modifications for ADL. 3=Patient will improve strength/tolerance for activity to enable patient to perform ADL's. OT Education/Plan Problem List/Assessment Pt would benefit from skilled OT to increase her independence in basic self care to allow her to safely return to her home to live with her and to decrease caregiver burden Discharge Recommendations Plan/Recommendations: Continue POC Treatment Plan/Plan of Care Patient would benefit from OT for education, treatment and training to promote independence in ADL's, mobility, safety and/or upper extremity function for ADL' s. Plan of Care: ADL Retraining, Caregiver Training, Functional Mobility, Group Exercise/Act as Ind (education, exercise, socialization, functional activities, activity tolerance), UE Funct Exercise/Act, UE Neuromus Re-Ed/Coord Treatment Duration: Apr 28, 2017 Frequency: Twice Daily (5- 6 days a week) Estimated Hrs Per Day: 1.5 hours per day Rehab Potential: Guarded Time/GCodes Start Time: 07:00 Stop Time: 08:00 Total Time Billed (hr/min): 60 Billed Treatment Time 1 visit-ADL 2 (30 min) NM 2 (30 min) JEANNIE FIELDS Apr 13, 2017 14:42
--- NOTE | 2017-04-13 14:48 | Physical Therapy Daily Note ---
PT Daily Note-Current Subjective Agrees to PT. No complaints. Transfers Functional [place] Measure 0=Not Assessed/NA 4=Minimal Assistance 1=Total Assistance 5=Supervision or Setup 2=Maximal Assistance 6=Modified [place] 3=Moderate Assistance 7=Complete IndependenceIRFPAI Quality Coding Scale 6 Independent with activity with or without an assistive device 5 Patient requires set up or clean up by helper. Patient completes activity by themselves 4 Supervision or touching assist (CGA). [place] provide cues , steadying assist 3 The helper provides less than half the effort to complete the activity 2 The helper provides more than half the effort to complete the activity 1 Dependent. The helper does all the effort to complete an activity 7 Patient refused to complete or attempt activity 9 The patient did not perform the activity before the current illness or injury 88 Not attempted due to Medical conditions or safety concerns Treatments Wheelchair mobility on indoor, sloped and outdoor surfaces with SB-min assist x >500 ft. Transferred to the nu step with CGA and rode Nu step x 12 minutes for LE strength and functional activity tolerance. Pt in chair post treatment to return to her room. I did lower her wheelchair during visit to improve her ability to propel with her feet. Assessment Current Status: Good Progress Doing well with transfers, but still has ataxic movement with upright postrue. PT Short Term Goals Short Term Goals Time Frame: Apr 14, 2017 Gait (FIM): 1 Gait Distance Comment: 20' Gait Level of Assist: 3 Wheelchair Distance: 150'x2 PT Production Control Expert Goals Production Control Expert Goals PT Senior Living Goals Time Frame: Apr 28, 2017 Transfers (B,C,W/C) (FIM): 4 Sit to Lying (QC): 6 Lying-Sitting on Side/Bed(QC): 6 Sit to Stand (QC): 4 Rollin Roll Left to Right (QC): 6 Chair/Oxs-zo-Fqlhm Xfer(QC): 4 Gait (FIM): 2 Distance: 50' Walk 10 feet (QC): 3 Walk 50ft with 2 Turns (QC): 3 PT Plan Problem List Problem List: Activity Tolerance, Functional Strength, Safety Treatment/Plan Treatment Plan: Continue Plan of Care Treatment Plan: Bed Mobility, Education, Functional Activity Jeffrey, Functional Strength, Group Therapy, Gait, Safety, Therapeutic Exercise, Transfers Treatment Duration: Apr 28, 2017 Frequency: At least 5-7 days/Wk (IRF) Estimated Hrs Per Day: 1.5 hours per day Patient and/or Family Agrees t: Yes Time/GCodes Time In: 1315 Time Out: 1400 Total Billed Treatment Time: 45 Total Billed Treatment visit WC 33 Ex 12 JEANNIE OROZCO PT Apr 13, 2017 14:48
--- NOTE | 2017-04-13 14:51 | Occupational Ther Daily Note ---
OT Current Status-Daily Note Subjective MATTHEW took over care of pt after PT session. Pt's w/c was lowered to allow pt to reach floor flat footed. After maintenance left it was discovered that the brakes needed to be adjusted also because the brakes wouldn't lock. technical manager chemical plant went to maintenance to report. Mental Status/Objective Patient Orientation: Person, Place, Time, Situation Functional [place] Measure 0=Not Assessed/NA 4=Minimal Assistance 1=Total Assistance 5=Supervision or Setup 2=Maximal Assistance 6=Modified [place] 3=Moderate Assistance 7=Complete [place] ADL-Treatment Functional [place] Measure 0=Not Assessed/NA 4=Minimal Assistance 1=Total Assistance 5=Supervision or Setup 2=Maximal Assistance 6=Modified [place] 3=Moderate Assistance 7=Complete IndependenceIRFPAI Quality Coding Scale 6 Independent with activity with or without an assistive device 5 Patient requires set up or clean up by helper. Patient completes activity by themselves 4 Supervision or touching assist (CGA). [place] provide cues , steadying assist 3 The helper provides less than half the effort to complete the activity 2 The helper provides more than half the effort to complete the activity 1 Dependent. The helper does all the effort to complete an activity 7 Patient refused to complete or attempt activity 9 The patient did not perform the activity before the current illness or injury 88 Not attempted due to Medical conditions or safety concerns Other Treatment Pt completed arm bike 15 min duration at 25 mark resistance to increase strength and activity tolerance for daily functional tasks. No breaks needed. Then maneuvered w/c throughout ARU by self and back to room. Min A to transfer from w/c to recliner. Call light/phone in reach. in room. All needs met in room. OT Short Term Goals Short Term Goals Time Frame: Apr 21, 2017 Toilet/Commode Transfer(FIM): 4 Shower Transfer(FIM): 4 Additional Short Term Goals: 2-Verbalize Understanding, 3-ImproveStrength/Jeffrey 1=Demonstrate adherence to instructed precautions during ADL tasks. 2=Patient will verbalize/demonstrate understanding of assistive devices/ modifications for ADL. 3=Patient will improve strength/tolerance for activity to enable patient to perform ADL's. OT Shelter Goals Auto Fleet Maintenance Manager Goals Time Frame: Apr 28, 2017 Eating (FIM): 6 Eating (QC): 6 Groomin Oral Hygiene (QC): 6 Bathing(FIM): 6 Shower/Bathe Self (QC): 6 Upper Body Dressing(FIM): 6 Upper Body Dressing (QC): 6 Lower Body Dressing(FIM): 6 Lower Body Dressing (QC): 6 On/Off Footwear (QC): 6 Toileting(FIM): 5 Toileting Hygiene (QC): 5 Toilet/Commode Transfer(FIM): 5 Toilet/Commode Transfer (QC): 5 Shower Transfer(FIM): 5 Will plan for goals to be at bed or w/c level and progress to include standing as tolerated Additional Goals: 2-Verbalize Understanding, 3-ImproveStrength/Jeffrey 1=Demonstrate adherence to instructed precautions during ADL tasks. 2=Patient will verbalize/demonstrate understanding of assistive devices/ modifications for ADL. 3=Patient will improve strength/tolerance for activity to enable patient to perform ADL's. OT Education/Plan Problem List/Assessment Pt would benefit from skilled OT to increase her independence in basic self care to allow her to safely return to her home to live with her and to decrease caregiver burden Discharge Recommendations Plan/Recommendations: Continue POC Treatment Plan/Plan of Care Patient would benefit from OT for education, treatment and training to promote independence in ADL's, mobility, safety and/or upper extremity function for ADL' s. Plan of Care: ADL Retraining, Caregiver Training, Functional Mobility, Group Exercise/Act as Ind (education, exercise, socialization, functional activities, activity tolerance), UE Funct Exercise/Act, UE Neuromus Re-Ed/Coord Treatment Duration: Apr 28, 2017 Frequency: Twice Daily (5- 6 days a week) Estimated Hrs Per Day: 1.5 hours per day Rehab Potential: Guarded Time/GCodes Start Time: 14:00 Stop Time: 14:30 Total Time Billed (hr/min): 30 Billed Treatment Time 1 visit-EX 2 (30 min) JEANNIE FIELDS Apr 13, 2017 14:50
[2017-04-13 17:44] VITALS: BP 143/80
[2017-04-13] MEDS: LATANOPROST 0.005% (XALATAN) OPHTH SOLN 2.5 ML OU SCH (20:52)
[2017-04-14 05:47] VITALS: BP 144/77
[2017-04-14] MEDS: PANTOPRAZOLE 40 MG (PROTONIX) TAB PO SCH (06:02)
--- NOTE | 2017-04-14 08:29 | Progress Note (SOAP) ---
Subjective Time Seen by Provider: 08:28 Subjective/Events-last exam truncal ataxia. Patient a work in progress. Patient working hard Objective Exam Vital Signs Date Time Temp Pulse Resp B/P (MAP) Pulse Ox O2 Delivery O2 Flow Rate FiO2 04/14/17 05:47 96.2 64 16 144/77 99 04/13/17 21:10 Room Air 04/13/17 17:44 97.7 68 18 143/80 99 Room Air 04/13/17 09:00 Room Air I & O 04/14/17 07:00 Intake Total 1210 ml Balance 1210 ml Capillary Refill : General Appearance: No Apparent Distress, Thin Neck: Full Range of Motion, Normal Inspection Respiratory: Chest Non Tender, Lungs Clear, Normal Breath Sounds, No Accessory Muscle Use, No Respiratory Distress Cardiovascular: Regular Rate, Rhythm Assessment/Plan Assessment/Plan Assess & Plan/Chief Complaint truncal ataxia. COPD GERD. Noncardiac chest pain. Irritable bowel syndrome. Frozen left shoulder. . 04/11/17. Truncal ataxia. COPD. GERd. Frozen left shoulder. Patient has problems standing up. . 04/12/17. Truncal ataxia. COPD. GERD. Patient still having problems. . 04/13/17 truncal ataxia. COPD. GERD. Irritable bowel syndrome. Patient working progress. Has problems standing up. . 04/14/17. Truncal ataxia. COPD. GERD. Patient working hard Clinical Quality Measures DVT/VTE Risk/Contraindication: Risk Factor Score Per Nursin RFS Level Per Nursing on Admit: 4+=Very High PRINCE DA SILVA DO Apr 14, 2017 08:29
--- NOTE | 2017-04-14 09:00 | Physical Therapy Daily Note ---
PT Daily Note-Current Subjective Patient in wheelchair pre tx, agrees to PT, has no complaints of pain. Appearance Patient in wheelchair post tx in her room with her . Mental Status Patient Orientation: Normal For Age Transfers Functional [place] Measure 0=Not Assessed/NA 4=Minimal Assistance 1=Total Assistance 5=Supervision or Setup 2=Maximal Assistance 6=Modified [place] 3=Moderate Assistance 7=Complete IndependenceIRFPAI Quality Coding Scale 6 Independent with activity with or without an assistive device 5 Patient requires set up or clean up by helper. Patient completes activity by themselves 4 Supervision or touching assist (CGA). [place] provide cues , steadying assist 3 The helper provides less than half the effort to complete the activity 2 The helper provides more than half the effort to complete the activity 1 Dependent. The helper does all the effort to complete an activity 7 Patient refused to complete or attempt activity 9 The patient did not perform the activity before the current illness or injury 88 Not attempted due to Medical conditions or safety concerns Transfers (B, C, W/C) (FIM): 4 Scootin Rollin Supine to/from Sit: 6 Bed to/from Chair: 4 Patient is now able to perform a modified squat pivot transfer with CGA. Wheelchair Training Does the Pt Use a Wheelchair?: Yes Wheelchair (FIM): 6 Distance: 150'x2 Type of Wheelchair: Manual Exercises Supine Ex: Bridging, Lower trunk rotation, Heel Slides Supine Reps: 20 sit to stand x10x2, supine shoulder retraction x20 NuStep Minutes: 15 NuStep Workload: 6 Treatments bed mobility and transfers, ambulation, functional strengthening Assessment Current Status: Fair Progress improved transfers PT Short Term Goals Short Term Goals Time Frame: Apr 14, 2017 Gait (FIM): 1 Gait Distance Comment: 20' Gait Level of Assist: 3 Wheelchair Distance: 150'x2 PT Fdc Goals Fdc Goals PT Actuarial Consultant Goals Time Frame: Apr 28, 2017 Transfers (B,C,W/C) (FIM): 4 Sit to Lying (QC): 6 Lying-Sitting on Side/Bed(QC): 6 Sit to Stand (QC): 4 Rollin Roll Left to Right (QC): 6 Chair/Wyj-nn-Cunqm Xfer(QC): 4 Gait (FIM): 2 Distance: 50' Walk 10 feet (QC): 3 Walk 50ft with 2 Turns (QC): 3 PT Plan Problem List Problem List: Activity Tolerance, Functional Strength, Safety, Balance, Gait, Transfer, Bed Mobility Treatment/Plan Treatment Plan: Continue Plan of Care Treatment Plan: Bed Mobility, Education, Functional Activity [place], Functional Strength, Group Therapy, Gait, Safety, Therapeutic Exercise, Transfers Treatment Duration: Apr 28, 2017 Frequency: At least 5-7 days/Wk (IRF) Estimated Hrs Per Day: 1.5 hours per day Patient and/or Family Agrees t: Yes Safety Risks/Education Patient Education: Transfer Techniques, Correct Positioning, W/C Management, Safety Issues Teaching Recipient: Patient Teaching Methods: Demonstration, Discussion Response to Teaching: Reinforcement Needed Time/GCodes Time In: 800 Time Out: 900 Total Billed Treatment Time: 60 Total Billed Treatment 1 visit [facility] 10' FA 15' EX 35' TANJA FELIX PT Apr 14, 2017 09:00
[2017-04-14] MEDS: clonazePAM 0.5 MG (KlonoPIN) TAB PO SCH (09:06)
[2017-04-14] MEDS: COLAZAL PO SCH ×2 (09:06→20:12)
--- NOTE | 2017-04-14 12:48 | Occupational Ther Daily Note ---
OT Current Status-Daily Note Subjective Pt alert, sitting in w/c. Pt agreed to therapy. No c/o pain. Mental Status/Objective Patient Orientation: Person, Place, Time, Situation Functional [place] Measure 0=Not Assessed/NA 4=Minimal Assistance 1=Total Assistance 5=Supervision or Setup 2=Maximal Assistance 6=Modified [place] 3=Moderate Assistance 7=Complete [place] ADL-Treatment Functional [place] Measure 0=Not Assessed/NA 4=Minimal Assistance 1=Total Assistance 5=Supervision or Setup 2=Maximal Assistance 6=Modified [place] 3=Moderate Assistance 7=Complete IndependenceIRFPAI Quality Coding Scale 6 Independent with activity with or without an assistive device 5 Patient requires set up or clean up by helper. Patient completes activity by themselves 4 Supervision or touching assist (CGA). [place] provide cues , steadying assist 3 The helper provides less than half the effort to complete the activity 2 The helper provides more than half the effort to complete the activity 1 Dependent. The helper does all the effort to complete an activity 7 Patient refused to complete or attempt activity 9 The patient did not perform the activity before the current illness or injury 88 Not attempted due to Medical conditions or safety concerns Grooming (FIM): 6 (At w/c level, completes by self.) Bathing (FIM): 5 (At w/c level, completes by self. Supervision for safety.) Upper Body (FIM): 6 (At w/c level, completes by self.) Lower Body Dressing (FIM): 6 (At w/c level, completes by self lying in bed.) Toileting (FIM): 6 (At w/c level, completes by self.) Transfers (B, C, W/C) (FIM): 5 (Close SBA when transferring from w/c to surface then back.) Toilet/Commode Transfer (FIM): 5 (Close SBA when transferring from w/c to surface then back.) Shower Transfer(FIM): 4 (CGA when transferring from w/c to rolling shower chair and back.) Other Treatment Pt maneuvered w/c to therapy gym and transferred to therapy mat. Pt was able to rock back and forth in 4pt with minimal ataxic movements when in full 4 pt position. Pt maneuvered w/c back to room and completed transfers from w/c to BSC and w/c to bed with SBA. present at time for family education on pt 's transfers. After therapy, pt sitting in recliner with call light/phone in reach. All needs met in [facility]. OT Short Term Goals Short Term Goals Time Frame: Apr 21, 2017 Toilet/Commode Transfer(FIM): 4 Shower Transfer(FIM): 4 Additional Short Term Goals: 2-Verbalize Understanding, 3-ImproveStrength/Jeffrey 1=Demonstrate adherence to instructed precautions during ADL tasks. 2=Patient will verbalize/demonstrate understanding of assistive devices/ modifications for ADL. 3=Patient will improve strength/tolerance for activity to enable patient to perform ADL's. OT Custodial Goals Rail Track Maintainer Goals Time Frame: Apr 28, 2017 Eating (FIM): 6 Eating (QC): 6 Groomin Oral Hygiene (QC): 6 Bathing(FIM): 6 Shower/Bathe Self (QC): 6 Upper Body Dressing(FIM): 6 Upper Body Dressing (QC): 6 Lower Body Dressing(FIM): 6 Lower Body Dressing (QC): 6 On/Off Footwear (QC): 6 Toileting(FIM): 5 Toileting Hygiene (QC): 5 Toilet/Commode Transfer(FIM): 5 Toilet/Commode Transfer (QC): 5 Shower Transfer(FIM): 5 Will plan for goals to be at bed or w/c level and progress to include standing as tolerated Additional Goals: 2-Verbalize Understanding, 3-ImproveStrength/Jeffrey 1=Demonstrate adherence to instructed precautions during ADL tasks. 2=Patient will verbalize/demonstrate understanding of assistive devices/ modifications for ADL. 3=Patient will improve strength/tolerance for activity to enable patient to perform ADL's. OT Education/Plan Problem List/Assessment Pt would benefit from skilled OT to increase her independence in basic self care to allow her to safely return to her home to live with her and to decrease caregiver burden Discharge Recommendations Plan/Recommendations: Continue POC Treatment Plan/Plan of Care Patient would benefit from OT for education, treatment and training to promote independence in ADL's, mobility, safety and/or upper extremity function for ADL' s. Plan of Care: ADL Retraining, Caregiver Training, Functional Mobility, Group Exercise/Act as Ind (education, exercise, socialization, functional activities, activity tolerance), UE Funct Exercise/Act, UE Neuromus Re-Ed/Coord Treatment Duration: Apr 28, 2017 Frequency: Twice Daily (5- 6 days a week) Estimated Hrs Per Day: 1.5 hours per day Rehab Potential: Guarded Time/GCodes Start Time: 07:00 Stop Time: 08:00 Total Time Billed (hr/min): 60 Billed Treatment Time 1 visit- ADL 2 (30 min) NM 2 (30 min) JEANNIE FIELDS Apr 14, 2017 12:48
--- NOTE | 2017-04-14 14:40 | Therapy Group Daily Note ---
Therapy Daily Group Note Other/Notes Pt. attended group PT OT session via w/c. Pt. propelled indep. Pt. very pleasant and enjoyed socialization participating in table activities, introduced herself and made conversation. Activities in groups of 4 at table promoting problem solving, fine motor function, UE strengthening against gravity as well as coordination. Pt. to room after Rx with simpson at hand Start Time: 13:00 Stop Time: 14:20 Total Billed Treatment Time: 80 Total Billed Treatment 1,GRP CRUZITO MORROW DELIVERER MERCHANDISE Apr 14, 2017 14:40
[2017-04-14] MEDS: acetaZOLAMIDE 250 MG (DIAMOX) TAB PO SCH (14:46)
--- NOTE | 2017-04-14 15:25 | PM & R (SOAP) Progress Note ---
Subjective Time Seen by Provider: 15:00 Subjective/Events-last exam Patient was seen in her room this afternoon Patient min assist for transfers with modified squat pivot with posture modification Review of Systems Neurological: Incoordination Objective Exam Last Set of Vital Signs Vital Signs Date Time Temp Pulse Resp B/P (MAP) Pulse Ox O2 Delivery O2 Flow Rate FiO2 04/14/17 09:00 Room Air 04/14/17 05:47 96.2 64 16 144/77 99 Capillary Refill : I&O Intake and Output 04/14/17 00:00 Intake Total 1330 ml Balance 1330 ml Intake Oral 1330 ml # Voids 6 # Bowel Movements 3 General: Alert, Oriented X3, Cooperative, No Acute Distress HEENT: Atraumatic, PERRLA, EOMI, Mucous Memb Moist/[place] Neck: Supple, No JVD Lungs: Clear to Auscultation Heart: Regular Rate Abdomen: Normal Bowel Sounds, Soft, No Tenderness Extremities: No Edema Skin: No Rashes Neuro: Other (truncal ataxia) Assessment/Plan Assessment 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
[2017-04-14 18:02] VITALS: BP 133/74
[2017-04-14] MEDS: LATANOPROST 0.005% (XALATAN) OPHTH SOLN 2.5 ML OU SCH (20:13)
[2017-04-15] MEDS: PANTOPRAZOLE 40 MG (PROTONIX) TAB PO SCH (05:42)
[2017-04-15 06:00] VITALS: BP 126/75
[2017-04-15] MEDS: COLAZAL PO SCH ×2 (08:18→20:52)
[2017-04-15] MEDS: clonazePAM 0.5 MG (KlonoPIN) TAB PO SCH (08:18)
--- NOTE | 2017-04-15 11:58 | Physical Therapy Daily Note ---
PT Daily Note-Current Subjective Pt denies pain. Pt agreeable. present. Mental Status Patient Orientation: Person, Place, Situation Transfers Functional [place] Measure 0=Not Assessed/NA 4=Minimal Assistance 1=Total Assistance 5=Supervision or Setup 2=Maximal Assistance 6=Modified [place] 3=Moderate Assistance 7=Complete IndependenceIRFPAI Quality Coding Scale 6 Independent with activity with or without an assistive device 5 Patient requires set up or clean up by helper. Patient completes activity by themselves 4 Supervision or touching assist (CGA). [place] provide cues , steadying assist 3 The helper provides less than half the effort to complete the activity 2 The helper provides more than half the effort to complete the activity 1 Dependent. The helper does all the effort to complete an activity 7 Patient refused to complete or attempt activity 9 The patient did not perform the activity before the current illness or injury 88 Not attempted due to Medical conditions or safety concerns Pt able to squat pivot transfer with CGA with only some involuntary movements. Performed SPT to w/c, to and from Nu-step. Gait Training Practiced weightbearing at bars in crouched position, just lifting bottom off of w/c. Pt able to perform isometric squat position 10x 10 sec. Pt able to avoid the involuntary movements in the squat position. Wheelchair Training Type of Wheelchair: Manual Pt performed (I) w/c mobility to and from gym. Exercises NuStep Minutes: 15 NuStep Workload: 2 Assessment Current Status: Good Progress All treatment done in a squat position or seated position to avoid the violent involuntary movements. Pt dc very well. Pt pleasant and cooperative. PT Short Term Goals Short Term Goals Time Frame: Apr 14, 2017 Gait (FIM): 1 Gait Distance Comment: 20' Gait Level of Assist: 3 Wheelchair Distance: 150'x2 PT Penitentiary Goals Penitentiary Goals PT Penitentiary Goals Time Frame: Apr 28, 2017 Transfers (B,C,W/C) (FIM): 4 Sit to Lying (QC): 6 Lying-Sitting on Side/Bed(QC): 6 Sit to Stand (QC): 4 Rollin Roll Left to Right (QC): 6 Chair/Exr-ri-Qkzes Xfer(QC): 4 Gait (FIM): 2 Distance: 50' Walk 10 feet (QC): 3 Walk 50ft with 2 Turns (QC): 3 PT Plan Treatment/Plan Treatment Plan: Continue Plan of Care Treatment Plan: Bed Mobility, Education, Functional Activity Jeffrey, Functional Strength, Group Therapy, Gait, Safety, Therapeutic Exercise, Transfers Treatment Duration: Apr 28, 2017 Frequency: At least 5-7 days/Wk (IRF) Estimated Hrs Per Day: 1.5 hours per day Patient and/or Family Agrees t: Yes Time/GCodes Time In: 815 Time Out: 900 Total Billed Treatment Time: 45 Total Billed Treatment 1, Ex x 45min DENA SARAH CPTA Apr 15, 2017 11:58
[2017-04-15] MEDS: acetaZOLAMIDE 250 MG (DIAMOX) TAB PO SCH (13:58)
[2017-04-15 17:35] VITALS: BP 157/77
[2017-04-15] MEDS: LATANOPROST 0.005% (XALATAN) OPHTH SOLN 2.5 ML OU SCH (20:53)
[2017-04-16 05:52] VITALS: BP 128/62
[2017-04-16] MEDS: PANTOPRAZOLE 40 MG (PROTONIX) TAB PO SCH (05:53)
[2017-04-16] MEDS: clonazePAM 0.5 MG (KlonoPIN) TAB PO SCH (08:07)
[2017-04-16] MEDS: COLAZAL PO SCH ×2 (08:08→20:21)
[2017-04-16] MEDS: acetaZOLAMIDE 250 MG (DIAMOX) TAB PO SCH (14:14)
[2017-04-16 17:21] VITALS: BP 127/75
[2017-04-16] MEDS: LATANOPROST 0.005% (XALATAN) OPHTH SOLN 2.5 ML OU SCH (20:21)
[2017-04-17 05:40] VITALS: BP 119/72
[2017-04-17] MEDS: PANTOPRAZOLE 40 MG (PROTONIX) TAB PO SCH (05:54)
--- NOTE | 2017-04-17 08:36 | Progress Note (SOAP) ---
Subjective Time Seen by Provider: 08:30 Subjective/Events-last exam truncal ataxia. Patient on Klonopin. Patient sleeping in the morning. 2 DC Klonopin in the morning. Patient transferring better Objective Exam Vital Signs Date Time Temp Pulse Resp B/P (MAP) Pulse Ox O2 Delivery O2 Flow Rate FiO2 04/17/17 05:40 97.8 70 18 119/72 98 Room Air 04/16/17 20:18 Room Air 04/16/17 17:21 98.0 76 20 127/75 99 Room Air 04/16/17 09:00 Room Air I & O 04/17/17 07:00 Intake Total 1200 ml Balance 1200 ml Capillary Refill : General Appearance: No Apparent Distress, Thin HEENT: Normal ENT Inspection Neck: Full Range of Motion, Normal Inspection Respiratory: Chest Non Tender, No Accessory Muscle Use, No Respiratory Distress Cardiovascular: Regular Rate, Rhythm, No Murmur Assessment/Plan Assessment/Plan Assess & Plan/Chief Complaint truncal ataxia. COPD GERD. Noncardiac chest pain. Irritable bowel syndrome. Frozen left shoulder. . 04/11/17. Truncal ataxia. COPD. GERd. Frozen left shoulder. Patient has problems standing up. . 04/12/17. Truncal ataxia. COPD. GERD. Patient still having problems. . 04/13/17 truncal ataxia. COPD. GERD. Irritable bowel syndrome. Patient working progress. Has problems standing up. . 04/14/17. Truncal ataxia. COPD. GERD. Patient working hard. . 04/17/17. Truncal ataxia. COPD Patient transferring better. Patient sleepy with Klonopin in the morning.. 2 DC Klonopin in the morning GERD Clinical Quality Measures DVT/VTE Risk/Contraindication: Risk Factor Score Per Nursin RFS Level Per Nursing on Admit: 4+=Very High PRINCE DA SILVA DO Apr 17, 2017 08:36
--- NOTE | 2017-04-17 08:47 | Physical Therapy Daily Note ---
PT Daily Note-Current Subjective Patient in wheelchair pre tx, agrees to PT, no complaints of pain. Appearance Patient in wheelchair post tx, is mod I with wheelchair mobility. Mental Status Patient Orientation: Normal For Age Transfers Functional [place] Measure 0=Not Assessed/NA 4=Minimal Assistance 1=Total Assistance 5=Supervision or Setup 2=Maximal Assistance 6=Modified [place] 3=Moderate Assistance 7=Complete IndependenceIRFPAI Quality Coding Scale 6 Independent with activity with or without an assistive device 5 Patient requires set up or clean up by helper. Patient completes activity by themselves 4 Supervision or touching assist (CGA). [place] provide cues , steadying assist 3 The helper provides less than half the effort to complete the activity 2 The helper provides more than half the effort to complete the activity 1 Dependent. The helper does all the effort to complete an activity 7 Patient refused to complete or attempt activity 9 The patient did not perform the activity before the current illness or injury 88 Not attempted due to Medical conditions or safety concerns Transfers (B, C, W/C) (FIM): 4 Bed to/from Chair: 4 CGA/Say, performs a modified squat pivot transfer, cues for safety and positioning, patient also performed a floor transfer into a wheelchair with min assist Gait Training Gait (FIM): 1 Distance: 20' Gait Level of Assist: 4 Gait Persons Needed: 2 Gait Assistive Device: FWW Patient ambulated with a very short walker requiring her to flex more at the hips and needs cues to keep her knees flexed. If she extends too much at the hips and knees her ballistic trunk movement starts. Exercises sit to stand 2 sets of 10 NuStep Minutes: 15 NuStep Workload: 6 Treatments transfer training, floor transfer, ambulation, functional strengthening Assessment Current Status: Fair Progress improved ambulation and floor transfer PT Short Term Goals Short Term Goals Time Frame: Apr 14, 2017 Gait (FIM): 1 Gait Distance Comment: 20' Gait Level of Assist: 3 Wheelchair Distance: 150'x2 PT Chcf Goals Chcf Goals PT Chcf Goals Time Frame: Apr 28, 2017 Transfers (B,C,W/C) (FIM): 4 Sit to Lying (QC): 6 Lying-Sitting on Side/Bed(QC): 6 Sit to Stand (QC): 4 Rollin Roll Left to Right (QC): 6 Chair/Fnf-ir-Lhoop Xfer(QC): 4 Gait (FIM): 2 Distance: 50' Walk 10 feet (QC): 3 Walk 50ft with 2 Turns (QC): 3 PT Plan Problem List Problem List: Activity Tolerance, Functional Strength, Safety, Balance, Gait, Transfer Treatment/Plan Treatment Plan: Continue Plan of Care Treatment Plan: Bed Mobility, Education, Functional Activity Jeffrey, Functional Strength, Group Therapy, Gait, Safety, Therapeutic Exercise, Transfers Treatment Duration: Apr 28, 2017 Frequency: At least 5-7 days/Wk (IRF) Estimated Hrs Per Day: 1.5 hours per day Patient and/or Family Agrees t: Yes Safety Risks/Education Patient Education: Gait Training, Transfer Techniques, Correct Positioning, Safety Issues Teaching Recipient: Patient Teaching Methods: Demonstration, Discussion Response to Teaching: Reinforcement Needed Time/GCodes Time In: 800 Time Out: 845 Total Billed Treatment Time: 45 Total Billed Treatment 1 visit GT 10' EX 20' FA 15' TANJA FELIX PT Apr 17, 2017 08:47
[2017-04-17] MEDS: COLAZAL PO SCH ×2 (09:03→20:28)
--- NOTE | 2017-04-17 11:50 | Occupational Ther Daily Note ---
OT Current Status-Daily Note Subjective Pt alert, sitting in w/c. Pt agreed to therapy. No c/o pain. Mental Status/Objective Patient Orientation: Person, Place, Time, Situation Functional [place] Measure 0=Not Assessed/NA 4=Minimal Assistance 1=Total Assistance 5=Supervision or Setup 2=Maximal Assistance 6=Modified [place] 3=Moderate Assistance 7=Complete [place] ADL-Treatment Pt maneuvered w/c to toilet then transferred to and from toilet by self with squat pivot transfer. Completed hygiene and manipulating clothing while in seating. Pt then transferred with close SBA into shower using w/c, shower bench and grabbars with squat pivot transfer. Pt able to take shower and dry self using shower bench, hand held shower and grabbars. Min A to transfer out of shower due to increased height of w/c to shower bench. Pt completed dressing sitting in w/c then at w/c level in front of sink pt completes grooming. Functional [place] Measure 0=Not Assessed/NA 4=Minimal Assistance 1=Total Assistance 5=Supervision or Setup 2=Maximal Assistance 6=Modified [place] 3=Moderate Assistance 7=Complete IndependenceIRFPAI Quality Coding Scale 6 Independent with activity with or without an assistive device 5 Patient requires set up or clean up by helper. Patient completes activity by themselves 4 Supervision or touching assist (CGA). [place] provide cues , steadying assist 3 The helper provides less than half the effort to complete the activity 2 The helper provides more than half the effort to complete the activity 1 Dependent. The helper does all the effort to complete an activity 7 Patient refused to complete or attempt activity 9 The patient did not perform the activity before the current illness or injury 88 Not attempted due to Medical conditions or safety concerns Grooming (FIM): 6 Oral Hygiene (QC): 6 Bathing (FIM): 6 Bathing Location: L Arm, R Arm, L Upper Leg, R Upper Leg, L Lower Leg ( including foot), R Lower Leg (including foot), Chest, Abdomen, Buttocks, Perineal Area Shower/Bathe Self (QC): 6 Upper Body (FIM): 6 Upper Body Dressing (QC): 6 Lower Body Dressing (FIM): 6 Lower Body Dressing (QC): 6 On/Off Footwear (QC): 6 Toileting (FIM): 6 Toileting Hygiene (QC): 6 Transfers (B, C, W/C) (FIM): 5 Toilet/Commode Transfer (FIM): 5 Toilet Transfer (QC): 4 Shower Transfer(FIM): 4 Other Treatment Pt maneuvered w/c to therapy gym. Pt transferred onto therapy mat with CGA. Using therapy mat to raise pt into a high sitting position with feet wt bearing on floor and hips/knees continue to be slightly flex. Pt able to complete hand strengthening task in this position. Increase height of mat to increase extension of hips/knees while completing functional activity. Pt was able to maintain position for 10 min before ataxic movements begun. Pt able to maneuver w/c back to room by self. All needs met. present in room. OT Short Term Goals Short Term Goals Time Frame: Apr 21, 2017 Toilet/Commode Transfer(FIM): 4 Shower Transfer(FIM): 4 Additional Short Term Goals: 2-Verbalize Understanding, 3-ImproveStrength/Jeffrey 1=Demonstrate adherence to instructed precautions during ADL tasks. 2=Patient will verbalize/demonstrate understanding of assistive devices/ modifications for ADL. 3=Patient will improve strength/tolerance for activity to enable patient to perform ADL's. OT Dieing Out Machine Operator Goals Retirement Goals Time Frame: Apr 28, 2017 Eating (FIM): 6 Eating (QC): 6 Groomin Oral Hygiene (QC): 6 Bathing(FIM): 6 Shower/Bathe Self (QC): 6 Upper Body Dressing(FIM): 6 Upper Body Dressing (QC): 6 Lower Body Dressing(FIM): 6 Lower Body Dressing (QC): 6 On/Off Footwear (QC): 6 Toileting(FIM): 5 Toileting Hygiene (QC): 5 Toilet/Commode Transfer(FIM): 5 Toilet/Commode Transfer (QC): 5 Shower Transfer(FIM): 5 Will plan for goals to be at bed or w/c level and progress to include standing as tolerated Additional Goals: 2-Verbalize Understanding, 3-ImproveStrength/Jeffrey 1=Demonstrate adherence to instructed precautions during ADL tasks. 2=Patient will verbalize/demonstrate understanding of assistive devices/ modifications for ADL. 3=Patient will improve strength/tolerance for activity to enable patient to perform ADL's. OT Education/Plan Problem List/Assessment Pt would benefit from skilled OT to increase her independence in basic self care to allow her to safely return to her home to live with her and to decrease caregiver burden Discharge Recommendations Plan/Recommendations: Continue POC Treatment Plan/Plan of Care Patient would benefit from OT for education, treatment and training to promote independence in ADL's, mobility, safety and/or upper extremity function for ADL' s. Plan of Care: ADL Retraining, Caregiver Training, Functional Mobility, Group Exercise/Act as Ind (education, exercise, socialization, functional activities, activity tolerance), UE Funct Exercise/Act, UE Neuromus Re-Ed/Coord Treatment Duration: Apr 28, 2017 Frequency: Twice Daily (5- 6 days a week) Estimated Hrs Per Day: 1.5 hours per day Rehab Potential: Guarded Time/GCodes Start Time: 07:00 Stop Time: 08:00 Total Time Billed (hr/min): 60 Billed Treatment Time 1 visit-ADL 2 (30 min) NM 2 (30 min) JEANNIE FIELDS Apr 17, 2017 11:50
[2017-04-17] MEDS: acetaZOLAMIDE 250 MG (DIAMOX) TAB PO SCH (14:33)
--- NOTE | 2017-04-17 15:19 | Therapy Group Daily Note ---
Therapy Daily Group Note Patient Education Topic Home Safety, Fall Prevention Other/Notes Pt maneuvered w/c to OT/PT group. Group consisted of introductions (name, place living, childhood memory), socialization, transfer safety education (bed, chair , floor) and group discussion. Pt contributed to group discussions appropriately. Pt verbalized understanding of education topic and gave solutions for home safety problems that had used previously. Pt sitting in w/c after group in room. Call light/phone in reach. All needs met in room. Start Time: 13:00 Stop Time: 14:15 Total Billed Treatment Time: 75 Total Billed Treatment 1-GRP JEANNIE FIELDS Apr 17, 2017 15:19
[2017-04-17 18:36] VITALS: BP 146/79
--- NOTE | 2017-04-17 19:31 | PM & R (SOAP) Progress Note ---
Subjective Time Seen by Provider: 19:30 Subjective/Events-last exam Patient was seen in her room this evening Patient min assist for transfers Completed referral form to Movement disorder specialist in [facility] for outpatient referral Tolerating Klonopin/current medsAwaiting Radiologists review of outside filme of MRI C Spine Objective Exam Last Set of Vital Signs Vital Signs Date Time Temp Pulse Resp B/P (MAP) Pulse Ox O2 Delivery O2 Flow Rate FiO2 04/17/17 18:36 97.1 71 18 146/79 99 04/17/17 09:00 Room Air Capillary Refill : I&O Intake and Output 04/17/17 00:00 Intake Total 1000 ml Balance 1000 ml Intake Oral 1000 ml # Voids 5 # Bowel Movements 1 General: Alert, Oriented X3, Cooperative, No Acute Distress HEENT: Atraumatic, PERRLA, EOMI, Mucous Memb Moist/[place] Neck: Supple, No JVD Lungs: Clear to Auscultation Heart: Regular Rate Abdomen: Normal Bowel Sounds, Soft, No Tenderness Extremities: No Edema Skin: No Rashes Neuro: Other (truncal ataxia) Assessment/Plan Assessment 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
[2017-04-17] MEDS: LATANOPROST 0.005% (XALATAN) OPHTH SOLN 2.5 ML OU SCH (20:29)
[2017-04-17] MEDS: clonazePAM 0.5 MG (KlonoPIN) TAB PO SCH (20:29)
[2017-04-18 06:02] VITALS: BP 149/64
[2017-04-18] MEDS: PANTOPRAZOLE 40 MG (PROTONIX) TAB PO SCH (06:12)
[2017-04-18] MEDS: COLAZAL PO SCH ×2 (08:17→21:11)
--- NOTE | 2017-04-18 08:32 | Progress Note (SOAP) ---
Subjective Time Seen by Provider: 08:30 Subjective/Events-last exam patient have trouble standing up. Truncal ataxia. Patient feel she is getting stronger. Patient's trying to get out of wheelchair to bathroom stool Objective Exam Vital Signs Date Time Temp Pulse Resp B/P (MAP) Pulse Ox O2 Delivery O2 Flow Rate FiO2 04/18/17 06:02 97.8 74 18 149/64 98 Room Air 04/17/17 21:14 Room Air 04/17/17 18:36 97.1 71 18 146/79 99 04/17/17 09:00 Room Air I & O 04/18/17 07:00 Intake Total 990 ml Balance 990 ml Capillary Refill : General Appearance: No Apparent Distress, Thin HEENT: Normal ENT Inspection Neck: Full Range of Motion, Normal Inspection Respiratory: Chest Non Tender, No Accessory Muscle Use, No Respiratory Distress Cardiovascular: Regular Rate, Rhythm, No Murmur Gastrointestinal: non tender, soft Assessment/Plan Assessment/Plan Assess & Plan/Chief Complaint truncal ataxia. COPD GERD. Noncardiac chest pain. Irritable bowel syndrome. Frozen left shoulder. . 04/11/17. Truncal ataxia. COPD. GERd. Frozen left shoulder. Patient has problems standing up. . 04/12/17. Truncal ataxia. COPD. GERD. Patient still having problems. . 04/13/17 truncal ataxia. COPD. GERD. Irritable bowel syndrome. Patient working progress. Has problems standing up. . 04/14/17. Truncal ataxia. COPD. GERD. Patient working hard. . 04/17/17. Truncal ataxia. COPD Patient transferring better. Patient sleepy with Klonopin in the morning.. 2 DC Klonopin in the morning GERD. . 04/18/17. Truncal ataxia. COPD. Patient doing better with Klonopin once daily. Patient trying to learn to transfer better. Patient shaking still when stands up Clinical Quality Measures DVT/VTE Risk/Contraindication: Risk Factor Score Per Nursin RFS Level Per Nursing on Admit: 4+=Very High PRINCE DA SILVA DO Apr 18, 2017 08:32
--- NOTE | 2017-04-18 09:59 | Physical Therapy Daily Note ---
PT Daily Note-Current Subjective Patient in wheelchair pre tx, agrees to PT, no complaints of pain. Appearance Patient in wheelchair post tx, she is mod I with wheelchair mobility. Mental Status Patient Orientation: Normal For Age Transfers Functional [place] Measure 0=Not Assessed/NA 4=Minimal Assistance 1=Total Assistance 5=Supervision or Setup 2=Maximal Assistance 6=Modified [place] 3=Moderate Assistance 7=Complete IndependenceIRFPAI Quality Coding Scale 6 Independent with activity with or without an assistive device 5 Patient requires set up or clean up by helper. Patient completes activity by themselves 4 Supervision or touching assist (CGA). [place] provide cues , steadying assist 3 The helper provides less than half the effort to complete the activity 2 The helper provides more than half the effort to complete the activity 1 Dependent. The helper does all the effort to complete an activity 7 Patient refused to complete or attempt activity 9 The patient did not perform the activity before the current illness or injury 88 Not attempted due to Medical conditions or safety concerns Transfers (B, C, W/C) (FIM): 4 Scootin Rollin Supine to/from Sit: 6 Bed to/from Chair: 4 Patient performed modified squat pivot transfers with min A, almost CGA several times. Gait Training Gait (FIM): 1 Distance: 40'x2 Gait Level of Assist: 4 Gait Persons Needed: 1 Gait Assistive Device: FWW Wheelchair follow. Patient ambulates with flexed knees, hips, and head down. Exercises Supine Ex: Bridging, Quad Set, Glut sets, Lower trunk rotation Supine Reps: 20 sit to stand 3 sets of 10, LAQ alternating for 5 min with 2# ankle weights NuStep Minutes: 15 NuStep Workload: 6 (strengthen legs to help with mobility especially since she is more inactive in the hospital) Treatments bed mobility and transfers, ambulation, functional strengthening Assessment Current Status: Fair Progress improving mobility, patient is adapting to a modified way of mobility to compensate for her abnormal movements PT Short Term Goals Short Term Goals Time Frame: Apr 14, 2017 Gait (FIM): 1 Gait Distance Comment: 20' Gait Level of Assist: 3 Wheelchair Distance: 150'x2 PT Director Of Video Analytics Goals Director Of Video Analytics Goals PT Retirement Goals Time Frame: Apr 28, 2017 Transfers (B,C,W/C) (FIM): 4 Sit to Lying (QC): 6 Lying-Sitting on Side/Bed(QC): 6 Sit to Stand (QC): 4 Rollin Roll Left to Right (QC): 6 Chair/Wru-ft-Jnayc Xfer(QC): 4 Gait (FIM): 2 Distance: 50' Walk 10 feet (QC): 3 Walk 50ft with 2 Turns (QC): 3 PT Plan Problem List Problem List: Activity Tolerance, Functional Strength, Safety, Balance, Gait, Transfer Treatment/Plan Treatment Plan: Continue Plan of Care Treatment Plan: Bed Mobility, Education, Functional Activity Jeffrey, Functional Strength, Group Therapy, Gait, Safety, Therapeutic Exercise, Transfers Treatment Duration: Apr 28, 2017 Frequency: At least 5-7 days/Wk (IRF) Estimated Hrs Per Day: 1.5 hours per day Patient and/or Family Agrees t: Yes Safety Risks/Education Patient Education: Gait Training, Transfer Techniques, Correct Positioning, Safety Issues Teaching Recipient: Patient Teaching Methods: Demonstration, Discussion Response to Teaching: Reinforcement Needed Time/GCodes Time In: 900 Time Out: 1000 Total Billed Treatment Time: 60 Total Billed Treatment 1 visit GT 15' FA 15' EX 30' TANJA FELIX PT Apr 18, 2017 09:59
--- NOTE | 2017-04-18 10:52 | PM & R (SOAP) Progress Note ---
Subjective Time Seen by Provider: 08:15 Subjective/Events-last exam Patient was seen in her room this AM with her spouse Spouse has questions re f/ u and discharge meds Explained that Patients PCP and/or Neurolgist in [place] will review discharge meds and do appropriate changes as per their recs Review of Systems Neurological: Incoordination Objective Exam Last Set of Vital Signs Vital Signs Date Time Temp Pulse Resp B/P (MAP) Pulse Ox O2 Delivery O2 Flow Rate FiO2 04/18/17 09:00 Room Air 04/18/17 06:02 97.8 74 18 149/64 98 Capillary Refill : I&O Intake and Output 04/18/17 00:00 Intake Total 1190 ml Balance 1190 ml Intake Oral 1190 ml # Voids 4 General: Alert, Oriented X3, Cooperative, No Acute Distress HEENT: Atraumatic, PERRLA, EOMI, Mucous Memb Moist/Mastic Neck: Supple, No JVD Lungs: Clear to Auscultation Heart: Regular Rate Abdomen: Normal Bowel Sounds, Soft, No Tenderness Extremities: No Edema Skin: No Rashes Neuro: Other (truncal ataxia) Assessment/Plan Assessment 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 with postural changes for transfers with perhaps some improvement as well with Klonopin-now transferring with min assist with postural adjustments IBS on meds GERD on med Glaucoma on eye drops Plan Continue PT/OT ST has signed off Appreciate DR Simons note Check MRI of T and L spine-done Obtain copy of MRI C Spine OSH so can compare-done awaiting review by Radiologist Spouse indicates that [facility] assessssment was for PsYch issues and no Imaging done TRial of clonazepam as per above-in progress Referral to movement disorder specialist done -has appointment in 6 weeks Next Team Conference tomorrow 04/19/17 LIAM PATRICK MD Apr 18, 2017 10:52
--- NOTE | 2017-04-18 11:07 | Occupational Ther Daily Note ---
OT Current Status-Daily Note Subjective Pt alert, sitting in w/c. Pt agreed to therapy. No c/o pain. present in room. Mental Status/Objective Patient Orientation: Person, Place, Time, Situation Functional [place] Measure 0=Not Assessed/NA 4=Minimal Assistance 1=Total Assistance 5=Supervision or Setup 2=Maximal Assistance 6=Modified [place] 3=Moderate Assistance 7=Complete [place] ADL-Treatment Functional [place] Measure 0=Not Assessed/NA 4=Minimal Assistance 1=Total Assistance 5=Supervision or Setup 2=Maximal Assistance 6=Modified [place] 3=Moderate Assistance 7=Complete IndependenceIRFPAI Quality Coding Scale 6 Independent with activity with or without an assistive device 5 Patient requires set up or clean up by helper. Patient completes activity by themselves 4 Supervision or touching assist (CGA). [place] provide cues , steadying assist 3 The helper provides less than half the effort to complete the activity 2 The helper provides more than half the effort to complete the activity 1 Dependent. The helper does all the effort to complete an activity 7 Patient refused to complete or attempt activity 9 The patient did not perform the activity before the current illness or injury 88 Not attempted due to Medical conditions or safety concerns Grooming (FIM): 6 (At w/c level, pt able to complete sitting at the sink.) Bathing (FIM): 6 (Using shower bench, grabbars and hand held shower pt is able to complete own bathing.) Bathing Location: L Arm, R Arm, L Upper Leg, R Upper Leg, L Lower Leg ( including foot), R Lower Leg (including foot), Chest, Abdomen, Buttocks, Perineal Area Upper Body (FIM): 6 (Pt retrieves own clothing at w/c level. Pt dons/doffs upper body clothing by self.) Lower Body Dressing (FIM): 6 (Retrieves clothing at w/c level then is able to don/doff by self lying in bed or sitting in w/c.) Toileting (FIM): 6 (Pt able to complete by self.) Transfers (B, C, W/C) (FIM): 5 (Close SBA with squat pivot transfer.) Toilet/Commode Transfer (FIM): 5 (Close SBA with squat pivot transfer.) Shower Transfer(FIM): 4 (CGA with squat pivot transfer.) Other Treatment Pt completed w/c maneuverability by self. Pt transferred from w/c to therapy mat with close SBA and back. Pt was able to get into 4 pt position without any ataxic movement. Attempted high kneel, pt unable to sustain position due to ataxic movement. Pt able to maintain low kneel, sitting on heels. Pt able to complete transitional movements from supine to 4 pt to sitting on edge of mat independently. Kitchen mobility with w/c. Pt maneuvered w/c to room. present in room. Call light/phone in reach. All needs met in room. OT Short Term Goals Short Term Goals Time Frame: Apr 21, 2017 Toilet/Commode Transfer(FIM): 4 Shower Transfer(FIM): 4 Additional Short Term Goals: 2-Verbalize Understanding, 3-ImproveStrength/Jeffrey 1=Demonstrate adherence to instructed precautions during ADL tasks. 2=Patient will verbalize/demonstrate understanding of assistive devices/ modifications for ADL. 3=Patient will improve strength/tolerance for activity to enable patient to perform ADL's. OT Care Home Goals Care Home Goals Time Frame: Apr 28, 2017 Eating (FIM): 6 Eating (QC): 6 Groomin Oral Hygiene (QC): 6 Bathing(FIM): 6 Shower/Bathe Self (QC): 6 Upper Body Dressing(FIM): 6 Upper Body Dressing (QC): 6 Lower Body Dressing(FIM): 6 Lower Body Dressing (QC): 6 On/Off Footwear (QC): 6 Toileting(FIM): 5 Toileting Hygiene (QC): 5 Toilet/Commode Transfer(FIM): 5 Toilet/Commode Transfer (QC): 5 Shower Transfer(FIM): 5 Will plan for goals to be at bed or w/c level and progress to include standing as tolerated Additional Goals: 2-Verbalize Understanding, 3-ImproveStrength/Jeffrey 1=Demonstrate adherence to instructed precautions during ADL tasks. 2=Patient will verbalize/demonstrate understanding of assistive devices/ modifications for ADL. 3=Patient will improve strength/tolerance for activity to enable patient to perform ADL's. OT Education/Plan Problem List/Assessment Pt would benefit from skilled OT to increase her independence in basic self care to allow her to safely return to her home to live with her and to decrease caregiver burden Discharge Recommendations Plan/Recommendations: Continue POC Treatment Plan/Plan of Care Patient would benefit from OT for education, treatment and training to promote independence in ADL's, mobility, safety and/or upper extremity function for ADL' s. Plan of Care: ADL Retraining, Caregiver Training, Functional Mobility, Group Exercise/Act as Ind (education, exercise, socialization, functional activities, activity tolerance), UE Funct Exercise/Act, UE Neuromus Re-Ed/Coord Treatment Duration: Apr 28, 2017 Frequency: Twice Daily (5- 6 days a week) Estimated Hrs Per Day: 1.5 hours per day Rehab Potential: Guarded Time/GCodes Start Time: 07:00 Stop Time: 08:00 Total Time Billed (hr/min): 60 Billed Treatment Time 1 visit-ADL 2 (30 min) NM 1 (15 min) FA 1 (15 min) JEANNIE FIELDS Apr 18, 2017 11:07
--- NOTE | 2017-04-18 11:08 | Occupational Ther Daily Note ---
OT Current Status-Daily Note Subjective Pt alert, sitting in w/c. Pt agreed to therapy. No c/o pain at this time. Pt' s stated that he had gotten a w/c that could fit in their doorways at home. Mental Status/Objective Patient Orientation: Person, Place, Time, Situation Functional [place] Measure 0=Not Assessed/NA 4=Minimal Assistance 1=Total Assistance 5=Supervision or Setup 2=Maximal Assistance 6=Modified [place] 3=Moderate Assistance 7=Complete [place] ADL-Treatment Functional [place] Measure 0=Not Assessed/NA 4=Minimal Assistance 1=Total Assistance 5=Supervision or Setup 2=Maximal Assistance 6=Modified [place] 3=Moderate Assistance 7=Complete IndependenceIRFPAI Quality Coding Scale 6 Independent with activity with or without an assistive device 5 Patient requires set up or clean up by helper. Patient completes activity by themselves 4 Supervision or touching assist (CGA). [place] provide cues , steadying assist 3 The helper provides less than half the effort to complete the activity 2 The helper provides more than half the effort to complete the activity 1 Dependent. The helper does all the effort to complete an activity 7 Patient refused to complete or attempt activity 9 The patient did not perform the activity before the current illness or injury 88 Not attempted due to Medical conditions or safety concerns Other Treatment Pt maneuvered w/c to therapy gym and back to room. At therapy gym, pt completed arm bike 15 min duration at 25 mark resistance to increase strength and activity tolerance for daily functional tasks. After therapy, pt sitting in w/c with call light/phone in reach. All needs met in room. OT Short Term Goals Short Term Goals Time Frame: Apr 21, 2017 Toilet/Commode Transfer(FIM): 4 Shower Transfer(FIM): 4 Additional Short Term Goals: 2-Verbalize Understanding, 3-ImproveStrength/Jeffrey 1=Demonstrate adherence to instructed precautions during ADL tasks. 2=Patient will verbalize/demonstrate understanding of assistive devices/ modifications for ADL. 3=Patient will improve strength/tolerance for activity to enable patient to perform ADL's. OT Gal[employer] Goals Custodial Goals Time Frame: Apr 28, 2017 Eating (FIM): 6 Eating (QC): 6 Groomin Oral Hygiene (QC): 6 Bathing(FIM): 6 Shower/Bathe Self (QC): 6 Upper Body Dressing(FIM): 6 Upper Body Dressing (QC): 6 Lower Body Dressing(FIM): 6 Lower Body Dressing (QC): 6 On/Off Footwear (QC): 6 Toileting(FIM): 5 Toileting Hygiene (QC): 5 Toilet/Commode Transfer(FIM): 5 Toilet/Commode Transfer (QC): 5 Shower Transfer(FIM): 5 Will plan for goals to be at bed or w/c level and progress to include standing as tolerated Additional Goals: 2-Verbalize Understanding, 3-ImproveStrength/Jeffrey 1=Demonstrate adherence to instructed precautions during ADL tasks. 2=Patient will verbalize/demonstrate understanding of assistive devices/ modifications for ADL. 3=Patient will improve strength/tolerance for activity to enable patient to perform ADL's. OT Education/Plan Problem List/Assessment Pt would benefit from skilled OT to increase her independence in basic self care to allow her to safely return to her home to live with her and to decrease caregiver burden Discharge Recommendations Plan/Recommendations: Continue POC Treatment Plan/Plan of Care Patient would benefit from OT for education, treatment and training to promote independence in ADL's, mobility, safety and/or upper extremity function for ADL' s. Plan of Care: ADL Retraining, Caregiver Training, Functional Mobility, Group Exercise/Act as Ind (education, exercise, socialization, functional activities, activity tolerance), UE Funct Exercise/Act, UE Neuromus Re-Ed/Coord Treatment Duration: Apr 28, 2017 Frequency: Twice Daily (5- 6 days a week) Estimated Hrs Per Day: 1.5 hours per day Rehab Potential: Guarded Time/GCodes Start Time: 11:00 Stop Time: 11:30 Total Time Billed (hr/min): 30 Billed Treatment Time 1 visit-EX 1 (15 min) FA 1 (15 min) JEANNIE FIELDS Apr 18, 2017 11:08
--- NOTE | 2017-04-18 13:33 | Physical Therapy Daily Note ---
PT Daily Note-Current Subjective Patient in wheelchair pre tx, agrees to PT, has no complaints of pain. Appearance Patient in wheelchair post tx with her . Mental Status Patient Orientation: Normal For Age Transfers Functional [place] Measure 0=Not Assessed/NA 4=Minimal Assistance 1=Total Assistance 5=Supervision or Setup 2=Maximal Assistance 6=Modified [place] 3=Moderate Assistance 7=Complete IndependenceIRFPAI Quality Coding Scale 6 Independent with activity with or without an assistive device 5 Patient requires set up or clean up by helper. Patient completes activity by themselves 4 Supervision or touching assist (CGA). [place] provide cues , steadying assist 3 The helper provides less than half the effort to complete the activity 2 The helper provides more than half the effort to complete the activity 1 Dependent. The helper does all the effort to complete an activity 7 Patient refused to complete or attempt activity 9 The patient did not perform the activity before the current illness or injury 88 Not attempted due to Medical conditions or safety concerns Transfers (B, C, W/C) (FIM): 4 Sit to/from Stand: 4 Patient also performed a floor transfer with CGA and cues for positioning. She went from the floor to her wheelchair. Gait Training Gait (FIM): 1 Distance: 15'x3 Gait Persons Needed: 1 Gait Assistive Device: FWW Wheelchair follow, patient had to stop ambulating each time because her abnormal movements started. She ambulates with head down and flexed knees and hips. Exercises sit to stand 2 reps of 10 Treatments transfers, ambulation, functional strengthening Assessment Current Status: Fair Progress Patient continues to progress with ambulation. PT Short Term Goals Short Term Goals Time Frame: Apr 14, 2017 Gait (FIM): 1 Gait Distance Comment: 20' Gait Level of Assist: 3 Wheelchair Distance: 150'x2 PT Jail Goals Jail Goals PT Jail Goals Time Frame: Apr 28, 2017 Transfers (B,C,W/C) (FIM): 4 Sit to Lying (QC): 6 Lying-Sitting on Side/Bed(QC): 6 Sit to Stand (QC): 4 Rollin Roll Left to Right (QC): 6 Chair/Fwy-lt-Hexrj Xfer(QC): 4 Gait (FIM): 2 Distance: 50' Walk 10 feet (QC): 3 Walk 50ft with 2 Turns (QC): 3 PT Plan Problem List Problem List: Activity Tolerance, Functional Strength, Safety, Balance, Gait, Transfer Treatment/Plan Treatment Plan: Continue Plan of Care Treatment Plan: Bed Mobility, Education, Functional Activity [place], Functional Strength, Group Therapy, Gait, Safety, Therapeutic Exercise, Transfers Treatment Duration: Apr 28, 2017 Frequency: At least 5-7 days/Wk (IRF) Estimated Hrs Per Day: 1.5 hours per day Patient and/or Family Agrees t: Yes Safety Risks/Education Patient Education: Gait Training, Transfer Techniques, Correct Positioning, Safety Issues Teaching Recipient: Patient Teaching Methods: Demonstration, Discussion Response to Teaching: Reinforcement Needed Time/GCodes Time In: 1300 Time Out: 1330 Total Billed Treatment Time: 30 Total Billed Treatment 1 visit FA 15' GT 15' TANJA FELIX PT Apr 18, 2017 13:33
[2017-04-18] MEDS: acetaZOLAMIDE 250 MG (DIAMOX) TAB PO SCH (13:53)
[2017-04-18 18:26] VITALS: BP 145/71
[2017-04-18] MEDS: LATANOPROST 0.005% (XALATAN) OPHTH SOLN 2.5 ML OU SCH (21:11)
[2017-04-18] MEDS: clonazePAM 0.5 MG (KlonoPIN) TAB PO SCH (21:11)
[2017-04-19 05:44] VITALS: BP 149/72
[2017-04-19] MEDS: PANTOPRAZOLE 40 MG (PROTONIX) TAB PO SCH (06:37)
--- NOTE | 2017-04-19 07:58 | Occupational Ther Daily Note ---
OT Current Status-Daily Note Subjective Pt alert, sitting in w/c. present in room. Pt agreed to therapy. No c /o pain. Mental Status/Objective Patient Orientation: Person, Place, Time, Situation Functional [place] Measure 0=Not Assessed/NA 4=Minimal Assistance 1=Total Assistance 5=Supervision or Setup 2=Maximal Assistance 6=Modified [place] 3=Moderate Assistance 7=Complete [place] ADL-Treatment Pt maneuvered w/c to bathroom to complete grooming prior to OT session. Pt then was able to transfer to and from toilet using modified squat pivot transfer and grabbar. Pt completed toileting hygiene and clothing manipulation by self. Then transferred to shower with SBA then took shower by self. Pt able to complete bathing/drying by self. Then maneuvered w/c to room and dressed upper body by self. Transferred with SBA to bed and dressed lower body by self. Then worked on tub bench transfers into tub/shower, SBA. Functional [place] Measure 0=Not Assessed/NA 4=Minimal Assistance 1=Total Assistance 5=Supervision or Setup 2=Maximal Assistance 6=Modified [place] 3=Moderate Assistance 7=Complete IndependenceIRFPAI Quality Coding Scale 6 Independent with activity with or without an assistive device 5 Patient requires set up or clean up by helper. Patient completes activity by themselves 4 Supervision or touching assist (CGA). [place] provide cues , steadying assist 3 The helper provides less than half the effort to complete the activity 2 The helper provides more than half the effort to complete the activity 1 Dependent. The helper does all the effort to complete an activity 7 Patient refused to complete or attempt activity 9 The patient did not perform the activity before the current illness or injury 88 Not attempted due to Medical conditions or safety concerns Eating (FIM): 6 Eating (QC): 6 Grooming (FIM): 6 Oral Hygiene (QC): 6 Bathing (FIM): 6 Bathing Location: L Arm, R Arm, L Upper Leg, R Upper Leg, L Lower Leg ( including foot), R Lower Leg (including foot), Chest, Abdomen, Buttocks, Perineal Area Shower/Bathe Self (QC): 6 Upper Body (FIM): 6 Upper Body Dressing (QC): 6 Lower Body Dressing (FIM): 6 Lower Body Dressing (QC): 6 On/Off Footwear (QC): 6 Toileting (FIM): 6 Toileting Hygiene (QC): 6 Transfers (B, C, W/C) (FIM): 5 Toilet/Commode Transfer (FIM): 6 Toilet Transfer (QC): 6 Tub Transfer(FIM): 5 Shower Transfer(FIM): 5 Other Treatment Pt complete arm bike duration 15 min at 30 mark resistance to increase strength and activity tolerance for daily functional tasks, no breaks needed. Pt then complete arm chair pushups (10 reps) and UE dowel linsey exercises with 2# wt attached to increase shldr strength. Pt tolerated all exercises well. Pt maneuvered w/c back to room. present in room. All needs met. OT Short Term Goals Short Term Goals Time Frame: Apr 21, 2017 Toilet/Commode Transfer(FIM): 4 Shower Transfer(FIM): 4 Additional Short Term Goals: 2-Verbalize Understanding, 3-ImproveStrength/Jeffrey 1=Demonstrate adherence to instructed precautions during ADL tasks. 2=Patient will verbalize/demonstrate understanding of assistive devices/ modifications for ADL. 3=Patient will improve strength/tolerance for activity to enable patient to perform ADL's. 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 Time Frame: Apr 28, 2017 Eating (FIM): 6 Eating (QC): 6 Groomin Oral Hygiene (QC): 6 Bathing(FIM): 6 Shower/Bathe Self (QC): 6 Upper Body Dressing(FIM): 6 Upper Body Dressing (QC): 6 Lower Body Dressing(FIM): 6 Lower Body Dressing (QC): 6 On/Off Footwear (QC): 6 Toileting(FIM): 5 Toileting Hygiene (QC): 5 Toilet/Commode Transfer(FIM): 5 Toilet/Commode Transfer (QC): 5 Shower Transfer(FIM): 5 Will plan for goals to be at bed or w/c level and progress to include standing as tolerated Additional Goals: 2-Verbalize Understanding, 3-ImproveStrength/Jeffrey 1=Demonstrate adherence to instructed precautions during ADL tasks. 2=Patient will verbalize/demonstrate understanding of assistive devices/ modifications for ADL. 3=Patient will improve strength/tolerance for activity to enable patient to perform ADL's. OT Education/Plan Problem List/Assessment Pt would benefit from skilled OT to increase her independence in basic self care to allow her to safely return to her home to live with her and to decrease caregiver burden Discharge Recommendations Plan/Recommendations: Continue POC Treatment Plan/Plan of Care Patient would benefit from OT for education, treatment and training to promote independence in ADL's, mobility, safety and/or upper extremity function for ADL' s. Plan of Care: ADL Retraining, Caregiver Training, Functional Mobility, Group Exercise/Act as Ind (education, exercise, socialization, functional activities, activity tolerance), UE Funct Exercise/Act, UE Neuromus Re-Ed/Coord Treatment Duration: Apr 28, 2017 Frequency: Twice Daily (5- 6 days a week) Estimated Hrs Per Day: 1.5 hours per day Rehab Potential: Guarded Time/GCodes Start Time: 07:00 Stop Time: 08:00 Total Time Billed (hr/min): 60 Billed Treatment Time 1 visit-ADL 1 (20 min) EX 2 (25 min) FA 1 (15 min) JEANNIE FIELDS Apr 19, 2017 07:58
--- NOTE | 2017-04-19 08:27 | Progress Note (SOAP) ---
Subjective Time Seen by Provider: 08:25 Subjective/Events-last exam truncal ataxia. When patient tries to stand up has violent movements has to get more involved Objective Exam Vital Signs Date Time Temp Pulse Resp B/P (MAP) Pulse Ox O2 Delivery O2 Flow Rate FiO2 04/19/17 05:44 96.4 77 16 149/72 99 Room Air 04/18/17 20:30 Room Air 04/18/17 18:26 96.7 65 16 145/71 96 04/18/17 09:00 Room Air I & O 04/19/17 07:00 Intake Total 1050 ml Balance 1050 ml Capillary Refill : General Appearance: No Apparent Distress, Thin Assessment/Plan Assessment/Plan Assess & Plan/Chief Complaint truncal ataxia. COPD GERD. Noncardiac chest pain. Irritable bowel syndrome. Frozen left shoulder. . 04/11/17. Truncal ataxia. COPD. GERd. Frozen left shoulder. Patient has problems standing up. . 04/12/17. Truncal ataxia. COPD. GERD. Patient still having problems. . 04/13/17 truncal ataxia. COPD. GERD. Irritable bowel syndrome. Patient working progress. Has problems standing up. . 04/14/17. Truncal ataxia. COPD. GERD. Patient working hard. . 04/17/17. Truncal ataxia. COPD Patient transferring better. Patient sleepy with Klonopin in the morning.. 2 DC Klonopin in the morning GERD. . 04/18/17. Truncal ataxia. COPD. Patient doing better with Klonopin once daily. Patient trying to learn to transfer better. Patient shaking still when stands up. . 04/19/17. Truncal ataxia. Patient needed help in transfers. Clinical Quality Measures DVT/VTE Risk/Contraindication: Risk Factor Score Per Nursin RFS Level Per Nursing on Admit: 4+=Very High PRINCE DA SILVA DO Apr 19, 2017 08:27
[2017-04-19] MEDS: COLAZAL PO SCH ×2 (09:16→20:16)
--- NOTE | 2017-04-19 09:56 | Physical Therapy Daily Note ---
PT Daily Note-Current Subjective Patient in wheelchair pre tx, agrees to PT, no complaints of pain. Appearance Patient in wheelchair post tx with . Mental Status Patient Orientation: Normal For Age Transfers Functional [place] Measure 0=Not Assessed/NA 4=Minimal Assistance 1=Total Assistance 5=Supervision or Setup 2=Maximal Assistance 6=Modified [place] 3=Moderate Assistance 7=Complete IndependenceIRFPAI Quality Coding Scale 6 Independent with activity with or without an assistive device 5 Patient requires set up or clean up by helper. Patient completes activity by themselves 4 Supervision or touching assist (CGA). [place] provide cues , steadying assist 3 The helper provides less than half the effort to complete the activity 2 The helper provides more than half the effort to complete the activity 1 Dependent. The helper does all the effort to complete an activity 7 Patient refused to complete or attempt activity 9 The patient did not perform the activity before the current illness or injury 88 Not attempted due to Medical conditions or safety concerns Transfers (B, C, W/C) (FIM): 4 Scootin Rollin Supine to/from Sit: 6 Bed to/from Chair: 4 Patient cannot stand due to her ataxia, she does perform a modified squat pivot transfer with CGA. Gait Training Gait (FIM): 1 Distance: 40', 10'x2 Gait Level of Assist: 4 Gait Persons Needed: 1 Gait Assistive Device: FWW Wheelchair follow, patient had one good walk and then for the next two she could not get too far without triggering her abnormal movements. Patient ambulates in a squatted position to not trigger her movements. 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 Liquid Waste Treatment Plant Operator Goals PT Liquid Waste Treatment Plant Operator Goals Time Frame: Apr 28, 2017 Transfers (B,C,W/C) (FIM): 4 Sit to Lying (QC): 6 Lying-Sitting on Side/Bed(QC): 6 Sit to Stand (QC): 4 Rollin Roll Left to Right (QC): 6 Chair/Gku-ti-Mpugj Xfer(QC): 4 Gait (FIM): 2 Distance: 50' Walk 10 feet (QC): 3 Walk 50ft with 2 Turns (QC): 3 PT Plan Problem List Problem List: Activity Tolerance, Functional Strength, Safety, Balance, Gait, Transfer Treatment/Plan Treatment Plan: Continue Plan of Care Treatment Plan: Bed Mobility, Education, Functional Activity Jeffrey, Functional Strength, Group Therapy, Gait, Safety, Therapeutic Exercise, Transfers Treatment Duration: Apr 28, 2017 Frequency: At least 5-7 days/Wk (IRF) Estimated Hrs Per Day: 1.5 hours per day Patient and/or Family Agrees t: Yes Safety Risks/Education Patient Education: Gait Training, Transfer Techniques, Correct Positioning, W/ C Management, Safety Issues Teaching Recipient: Patient Teaching Methods: Demonstration, Discussion Response to Teaching: Reinforcement Needed Time/GCodes Time In: 800 Time Out: 900 Total Billed Treatment Time: 60 Total Billed Treatment 1 visit [facility] 10' GT 30' EX 20' TANJA FELIX PT Apr 19, 2017 09:55
--- NOTE | 2017-04-19 13:30 | Physical Therapy Daily Note ---
PT Daily Note-Current Subjective Patient in wheelchair pre tx, agrees to PT, has no complaints of pain. Appearance Patient in wheelchair post tx with her . Mental Status Patient Orientation: Normal For Age Transfers Functional [place] Measure 0=Not Assessed/NA 4=Minimal Assistance 1=Total Assistance 5=Supervision or Setup 2=Maximal Assistance 6=Modified [place] 3=Moderate Assistance 7=Complete IndependenceIRFPAI Quality Coding Scale 6 Independent with activity with or without an assistive device 5 Patient requires set up or clean up by helper. Patient completes activity by themselves 4 Supervision or touching assist (CGA). [place] provide cues , steadying assist 3 The helper provides less than half the effort to complete the activity 2 The helper provides more than half the effort to complete the activity 1 Dependent. The helper does all the effort to complete an activity 7 Patient refused to complete or attempt activity 9 The patient did not perform the activity before the current illness or injury 88 Not attempted due to Medical conditions or safety concerns Gait Training Gait (FIM): 1 Distance: 20', 5', 20'x2 Gait Level of Assist: 4 Gait Persons Needed: 1 Gait Assistive Device: FWW wheelchair follow, ambulates in a squatted position, spinal clonus may happen without warning and she needs assist to sit immediately Exercises sit to stand (squatted position) 3 sets of 10 Treatments sit to stand, ambulation Assessment Current Status: Fair Progress improving ambulation PT Short Term Goals Short Term Goals Time Frame: Apr 14, 2017 Gait (FIM): 1 Gait Distance Comment: 20' Gait Level of Assist: 3 Wheelchair Distance: 150'x2 PT Prison Goals Prison Goals PT Health Physicist Goals Time Frame: Apr 28, 2017 Transfers (B,C,W/C) (FIM): 4 Sit to Lying (QC): 6 Lying-Sitting on Side/Bed(QC): 6 Sit to Stand (QC): 4 Rollin Roll Left to Right (QC): 6 Chair/Txz-hc-Lfzbj Xfer(QC): 4 Gait (FIM): 2 Distance: 50' Walk 10 feet (QC): 3 Walk 50ft with 2 Turns (QC): 3 PT Plan Problem List Problem List: Activity Tolerance, Functional Strength, Safety, Balance, Gait, Transfer Treatment/Plan Treatment Plan: Continue Plan of Care Treatment Plan: Bed Mobility, Education, Functional Activity [place], Functional Strength, Group Therapy, Gait, Safety, Therapeutic Exercise, Transfers Treatment Duration: Apr 28, 2017 Frequency: At least 5-7 days/Wk (IRF) Estimated Hrs Per Day: 1.5 hours per day Patient and/or Family Agrees t: Yes Safety Risks/Education Patient Education: Gait Training, Transfer Techniques, Correct Positioning, Safety Issues Teaching Recipient: Patient Teaching Methods: Demonstration, Discussion Response to Teaching: Reinforcement Needed Time/GCodes Time In: 1300 Time Out: 1330 Total Billed Treatment Time: 30 Total Billed Treatment 1 visit GT 20' EX 10' TANJA FELIX PT Apr 19, 2017 13:30
--- NOTE | 2017-04-19 13:56 | Occupational Ther Daily Note ---
OT Current Status-Daily Note Subjective Pt alert, sitting in recliner. Pt agreed to therapy. No c/o pain. Mental Status/Objective Patient Orientation: Person, Place, Time, Situation Functional [place] Measure 0=Not Assessed/NA 4=Minimal Assistance 1=Total Assistance 5=Supervision or Setup 2=Maximal Assistance 6=Modified [place] 3=Moderate Assistance 7=Complete [place] ADL-Treatment Functional [place] Measure 0=Not Assessed/NA 4=Minimal Assistance 1=Total Assistance 5=Supervision or Setup 2=Maximal Assistance 6=Modified [place] 3=Moderate Assistance 7=Complete IndependenceIRFPAI Quality Coding Scale 6 Independent with activity with or without an assistive device 5 Patient requires set up or clean up by helper. Patient completes activity by themselves 4 Supervision or touching assist (CGA). [place] provide cues , steadying assist 3 The helper provides less than half the effort to complete the activity 2 The helper provides more than half the effort to complete the activity 1 Dependent. The helper does all the effort to complete an activity 7 Patient refused to complete or attempt activity 9 The patient did not perform the activity before the current illness or injury 88 Not attempted due to Medical conditions or safety concerns Other Treatment Pt maneuvered w/c to therapy gym. Pt then transferred from w/c to therapy mat and back with SBA. Raised therapy mat for pt to complete half stand for wt bearing when completing table top activities. Pt complete fine motor strengthening and dexterity activities to increase strength for daily functional tasks. Pt maneuvered w/c back to room. in room, all needs met in room. Call light/phone in reach. All needs met in room. OT Short Term Goals Short Term Goals Time Frame: Apr 21, 2017 Toilet/Commode Transfer(FIM): 4 Shower Transfer(FIM): 4 Additional Short Term Goals: 2-Verbalize Understanding, 3-ImproveStrength/Jeffrey 1=Demonstrate adherence to instructed precautions during ADL tasks. 2=Patient will verbalize/demonstrate understanding of assistive devices/ modifications for ADL. 3=Patient will improve strength/tolerance for activity to enable patient to perform ADL's. OT Snf Goals Snf Goals Time Frame: Apr 28, 2017 Eating (FIM): 6 Eating (QC): 6 Groomin Oral Hygiene (QC): 6 Bathing(FIM): 6 Shower/Bathe Self (QC): 6 Upper Body Dressing(FIM): 6 Upper Body Dressing (QC): 6 Lower Body Dressing(FIM): 6 Lower Body Dressing (QC): 6 On/Off Footwear (QC): 6 Toileting(FIM): 5 Toileting Hygiene (QC): 5 Toilet/Commode Transfer(FIM): 5 Toilet/Commode Transfer (QC): 5 Shower Transfer(FIM): 5 Will plan for goals to be at bed or w/c level and progress to include standing as tolerated Additional Goals: 2-Verbalize Understanding, 3-ImproveStrength/Jeffrey 1=Demonstrate adherence to instructed precautions during ADL tasks. 2=Patient will verbalize/demonstrate understanding of assistive devices/ modifications for ADL. 3=Patient will improve strength/tolerance for activity to enable patient to perform ADL's. OT Education/Plan Problem List/Assessment Pt would benefit from skilled OT to increase her independence in basic self care to allow her to safely return to her home to live with her and to decrease caregiver burden Discharge Recommendations Plan/Recommendations: Continue POC Treatment Plan/Plan of Care Patient would benefit from OT for education, treatment and training to promote independence in ADL's, mobility, safety and/or upper extremity function for ADL' s. Plan of Care: ADL Retraining, Caregiver Training, Functional Mobility, Group Exercise/Act as Ind (education, exercise, socialization, functional activities, activity tolerance), UE Funct Exercise/Act, UE Neuromus Re-Ed/Coord Treatment Duration: Apr 28, 2017 Frequency: Twice Daily (5- 6 days a week) Estimated Hrs Per Day: 1.5 hours per day Rehab Potential: Guarded Time/GCodes Start Time: 11:00 Stop Time: 11:30 Total Time Billed (hr/min): 30 Billed Treatment Time 1 visit-NM 2 (30 min) JEANNIE FIELDS Apr 19, 2017 13:56
[2017-04-19] MEDS: acetaZOLAMIDE 250 MG (DIAMOX) TAB PO SCH (14:02)
[2017-04-19 18:23] VITALS: BP 125/68
[2017-04-19] MEDS: clonazePAM 0.5 MG (KlonoPIN) TAB PO SCH (20:16)
[2017-04-19] MEDS: LATANOPROST 0.005% (XALATAN) OPHTH SOLN 2.5 ML OU SCH (20:16)
--- NOTE | 2017-04-19 21:50 | PM & R (SOAP) Progress Note ---
Subjective Time Seen by Provider: 21:30 Subjective/Events-last exam Patient was seen in her room this evening Patient min assist for transfers Review of Systems Neurological: Incoordination Objective Exam Last Set of Vital Signs Vital Signs Date Time Temp Pulse Resp B/P (MAP) Pulse Ox O2 Delivery O2 Flow Rate FiO2 04/19/17 18:23 97.3 65 20 125/68 97 04/19/17 10:01 Room Air Capillary Refill : I&O Intake and Output 04/18/17 23:59 Intake Total 900 ml Balance 900 ml Intake Oral 900 ml # Voids 7 # Bowel Movements 1 General: Alert, Oriented X3, Cooperative, No Acute Distress HEENT: Atraumatic, PERRLA, EOMI, Mucous Memb Moist/[place] Neck: Supple, No JVD Lungs: Clear to Auscultation Heart: Regular Rate Abdomen: Normal Bowel Sounds, Soft, No Tenderness Extremities: No Edema Skin: No Rashes Neuro: Other (truncal ataxia) Assessment/Plan Assessment 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 with postural changes for transfers with perhaps some improvement as well with Klonopin-now transferring with min assist with postural adjustments IBS on meds GERD on med Glaucoma on eye drops Small Cervical sphrinx as per MRI Plan Continue PT/OT ST has signed off Appreciate DR Simons note Check MRI of T and L spine-done Obtain copy of MRI C Spine OSH so can compare-done awaiting review by Radiologist Spouse indicates that [facility] assessssment was for PsYch issues and no Imaging done TRial of clonazepam as per above-in progress Referral to movement disorder specialist done -has appointment in 6 weeks Team Conference held earlier today-See report for full functional update and POC Discharge set for 04/23/17 LIAM PATRICK MD Apr 19, 2017 21:49
[2017-04-20 05:19] VITALS: BP 132/68
[2017-04-20] MEDS: PANTOPRAZOLE 40 MG (PROTONIX) TAB PO SCH (06:17)
--- NOTE | 2017-04-20 07:13 | Occupational Ther Daily Note ---
OT Current Status-Daily Note Subjective Pt alert, sitting in w/c. present. Pt stated they told her she was leaving 04/23/2017. Pt agreed to therapy. No c/o pain. Mental Status/Objective Patient Orientation: Person, Place, Time, Situation Functional [place] Measure 0=Not Assessed/NA 4=Minimal Assistance 1=Total Assistance 5=Supervision or Setup 2=Maximal Assistance 6=Modified [place] 3=Moderate Assistance 7=Complete [place] ADL-Treatment Functional [place] Measure 0=Not Assessed/NA 4=Minimal Assistance 1=Total Assistance 5=Supervision or Setup 2=Maximal Assistance 6=Modified [place] 3=Moderate Assistance 7=Complete IndependenceIRFPAI Quality Coding Scale 6 Independent with activity with or without an assistive device 5 Patient requires set up or clean up by helper. Patient completes activity by themselves 4 Supervision or touching assist (CGA). [place] provide cues , steadying assist 3 The helper provides less than half the effort to complete the activity 2 The helper provides more than half the effort to complete the activity 1 Dependent. The helper does all the effort to complete an activity 7 Patient refused to complete or attempt activity 9 The patient did not perform the activity before the current illness or injury 88 Not attempted due to Medical conditions or safety concerns Eating (FIM): 6 (Dentures. Pt able to set own self up and use regular utensils to feed self and cut food.) Eating (QC): 6 ([place]. Pt able to set own self up and use regular utensils to feed self and cut food.) Grooming (FIM): 6 (At w/c level, pt is able to complete all grooming.) Oral Hygiene (QC): 6 (At w/c level, pt is able to complete all oral care.) Bathing (FIM): 6 (Using shower bench, hand held shower and grabbars pt is able to complete by self.) Bathing Location: L Arm, R Arm, L Upper Leg, R Upper Leg, L Lower Leg ( including foot), R Lower Leg (including foot), Chest, Abdomen, Buttocks, Perineal Area Shower/Bathe Self (QC): 6 (Using shower bench, hand held shower and grabbars pt is able to complete by self.) Upper Body (FIM): 6 (At w/c level pt retrieves clothing. Pt is able to complete dressing by self.) Upper Body Dressing (QC): 6 (At w/c level pt retrieves clothing. Pt is able to complete dressing by self.) Lower Body Dressing (FIM): 6 (At w/c level pt retrieves clothing. Pt is able to complete dressing by self.) Lower Body Dressing (QC): 6 (At w/c level pt retrieves clothing. Pt is able to complete dressing by self.) On/Off Footwear (QC): 6 (At w/c level pt retrieves clothing. Pt is able to complete dressing by self.) Toileting (FIM): 6 (Pt complete hygiene by self. Completes clothing manipulation sitting in w/c.) Toileting Hygiene (QC): 6 (Pt complete hygiene by self. Completes clothing manipulation sitting in w/c.) Transfers (B, C, W/C) (FIM): 6 (Modified squat pivot transfer from w/c to nulify ataxic truncal movements.) Toilet/Commode Transfer (FIM): 6 (Modified squat pivot transfer from w/c to nulify ataxic truncal movements.) Toilet Transfer (QC): 6 (Modified squat pivot transfer from w/c to nulify ataxic truncal movements.) Shower Transfer(FIM): 6 (Modified squat pivot transfer from w/c to nulify ataxic truncal movements using shower bench and grabbars.) Other Treatment Pt worked on tub transfer bench transfer and bed transfer with present. Pt apprehensive at first and required CGA. As pt felt comfortable with transfers able to complete with mod I. Discussed with pt and bed cane or some type of hand hold for transfer into bed at home. After therapy, pt sitting in w/c in room with call light/phone in reach. Education OT Patient Education: Instructions to caregiver, Transfer techniques, Use of adapted equipment Teaching Recipient: Patient Teaching Methods: Demonstration, Handout Response to Teaching: Verbalize Understanding OT Short Term Goals Short Term Goals Time Frame: Apr 21, 2017 Toilet/Commode Transfer(FIM): 4 Shower Transfer(FIM): 4 Additional Short Term Goals: 2-Verbalize Understanding, 3-ImproveStrength/Jeffrey 1=Demonstrate adherence to instructed precautions during ADL tasks. 2=Patient will verbalize/demonstrate understanding of assistive devices/ modifications for ADL. 3=Patient will improve strength/tolerance for activity to enable patient to perform ADL's. OT Establishment Guide Goals Establishment Guide Goals Time Frame: Apr 28, 2017 Eating (FIM): 6 Eating (QC): 6 Groomin Oral Hygiene (QC): 6 Bathing(FIM): 6 Shower/Bathe Self (QC): 6 Upper Body Dressing(FIM): 6 Upper Body Dressing (QC): 6 Lower Body Dressing(FIM): 6 Lower Body Dressing (QC): 6 On/Off Footwear (QC): 6 Toileting(FIM): 5 Toileting Hygiene (QC): 5 Toilet/Commode Transfer(FIM): 5 Toilet/Commode Transfer (QC): 5 Shower Transfer(FIM): 5 Will plan for goals to be at bed or w/c level and progress to include standing as tolerated Additional Goals: 2-Verbalize Understanding, 3-ImproveStrength/Jeffrey 1=Demonstrate adherence to instructed precautions during ADL tasks. 2=Patient will verbalize/demonstrate understanding of assistive devices/ modifications for ADL. 3=Patient will improve strength/tolerance for activity to enable patient to perform ADL's. OT Education/Plan Problem List/Assessment Pt would benefit from skilled OT to increase her independence in basic self care to allow her to safely return to her home to live with her and to decrease caregiver burden Discharge Recommendations Plan/Recommendations: Continue POC Treatment Plan/Plan of Care Patient would benefit from OT for education, treatment and training to promote independence in ADL's, mobility, safety and/or upper extremity function for ADL' s. Plan of Care: ADL Retraining, Caregiver Training, Functional Mobility, Group Exercise/Act as Ind (education, exercise, socialization, functional activities, activity tolerance), UE Funct Exercise/Act, UE Neuromus Re-Ed/Coord Treatment Duration: Apr 28, 2017 Frequency: Twice Daily (5- 6 days a week) Estimated Hrs Per Day: 1.5 hours per day Rehab Potential: Guarded Time/GCodes Start Time: 07:00 Stop Time: 08:00 Total Time Billed (hr/min): 60 Billed Treatment Time 1 visit-ADL 2 (30 min) FA 2 (30 min) JEANNIE FIELDS Apr 20, 2017 07:13
--- NOTE | 2017-04-20 07:35 | PM & R (SOAP) Progress Note ---
Subjective Time Seen by Provider: 07:25 Subjective/Events-last exam Patient was seen in her room this AM Patient min assist for transfers.Discussed discharge plan with patient and spouse. Objective Exam Last Set of Vital Signs Vital Signs Date Time Temp Pulse Resp B/P (MAP) Pulse Ox O2 Delivery O2 Flow Rate FiO2 04/20/17 05:19 97.3 61 15 132/68 97 Room Air Capillary Refill : I&O Intake and Output 04/19/17 23:59 Intake Total 1210 ml Balance 1210 ml Intake Oral 1210 ml # Voids 5 General: Alert, Oriented X3, Cooperative, No Acute Distress HEENT: Atraumatic, PERRLA, EOMI, Mucous Memb Moist/[place] Neck: Supple, No JVD Lungs: Clear to Auscultation Heart: Regular Rate Abdomen: Normal Bowel Sounds, Soft, No Tenderness Extremities: No Edema Skin: No Rashes Neuro: Other (truncal ataxia) Assessment/Plan Assessment 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 with postural changes for transfers with perhaps some improvement as well with Klonopin-now transferring with min assist with postural adjustments IBS on meds GERD on med Glaucoma on eye drops Small Cervical sphrinx as per MRI Plan Continue PT/OT ST has signed off Appreciate DR Simons note Check MRI of T and L spine-done Obtain copy of MRI C Spine OSH so can compare-done awaiting review by Radiologist Spouse indicates that [facility] assessssment was for PsYch issues and no Imaging done TRial of clonazepam as per above-in progress Referral to movement disorder specialist done -has appointment in 6 weeks Team Conference held yesterday-See report for full functional update and POC Discharge set for 04/23/17 LIAM PATRICK MD Apr 20, 2017 07:35
--- NOTE | 2017-04-20 08:01 | Progress Note (SOAP) ---
Subjective Time Seen by Provider: 07:55 Subjective/Events-last exam TRUNCAL ATAXIA. Patient working hard.. passive. Patient still not able to stand up Objective Exam Vital Signs Date Time Temp Pulse Resp B/P (MAP) Pulse Ox O2 Delivery O2 Flow Rate FiO2 04/20/17 05:19 97.3 61 15 132/68 97 Room Air 04/19/17 21:00 Room Air 04/19/17 18:23 97.3 65 20 125/68 97 04/19/17 10:01 Room Air I & O 04/20/17 07:00 Intake Total 1160 ml Balance 1160 ml Capillary Refill : General Appearance: No Apparent Distress, Thin HEENT: Normal ENT Inspection Respiratory: Chest Non Tender, No Accessory Muscle Use, No Respiratory Distress Cardiovascular: Regular Rate, Rhythm, No Murmur Assessment/Plan Assessment/Plan Assess & Plan/Chief Complaint truncal ataxia. COPD GERD. Noncardiac chest pain. Irritable bowel syndrome. Frozen left shoulder. . 04/11/17. Truncal ataxia. COPD. GERd. Frozen left shoulder. Patient has problems standing up. . 04/12/17. Truncal ataxia. COPD. GERD. Patient still having problems. . 04/13/17 truncal ataxia. COPD. GERD. Irritable bowel syndrome. Patient working progress. Has problems standing up. . 04/14/17. Truncal ataxia. COPD. GERD. Patient working hard. . 04/17/17. Truncal ataxia. COPD Patient transferring better. Patient sleepy with Klonopin in the morning.. 2 DC Klonopin in the morning GERD. . 04/18/17. Truncal ataxia. COPD. Patient doing better with Klonopin once daily. Patient trying to learn to transfer better. Patient shaking still when stands up. . 04/19/17. Truncal ataxia. Patient needed help in transfers.. . 04/20/17. Truncal ataxia. Patient working the best she could. passive within helping Clinical Quality Measures DVT/VTE Risk/Contraindication: Risk Factor Score Per Nursin RFS Level Per Nursing on Admit: 4+=Very High PRINCE DA SILVA DO Apr 20, 2017 08:00
[2017-04-20] MEDS: COLAZAL PO SCH ×2 (08:41→20:19)
--- NOTE | 2017-04-20 09:01 | Physical Therapy Daily Note ---
PT Daily Note-Current Subjective Patient in wheelchair pre tx, agrees to PT, has no complaints of pain. Will be doing some family training with her . Appearance Patient in wheelchair post tx with her . Mental Status Patient Orientation: Normal For Age Transfers Functional [place] Measure 0=Not Assessed/NA 4=Minimal Assistance 1=Total Assistance 5=Supervision or Setup 2=Maximal Assistance 6=Modified [place] 3=Moderate Assistance 7=Complete IndependenceIRFPAI Quality Coding Scale 6 Independent with activity with or without an assistive device 5 Patient requires set up or clean up by helper. Patient completes activity by themselves 4 Supervision or touching assist (CGA). [place] provide cues , steadying assist 3 The helper provides less than half the effort to complete the activity 2 The helper provides more than half the effort to complete the activity 1 Dependent. The helper does all the effort to complete an activity 7 Patient refused to complete or attempt activity 9 The patient did not perform the activity before the current illness or injury 88 Not attempted due to Medical conditions or safety concerns Transfers (B, C, W/C) (FIM): 4 Bed to/from Chair: 4 CGA, modified squat pivot transfers Gait Training Gait (FIM): 1 Distance: 30', 15'x2 Gait Level of Assist: 4 Gait Persons Needed: 1 Gait Assistive Device: FWW Wheelchair follow, CGA until her ballistic trunk movement starts. Ambulates in a squatted position as to not trigger her abnormal movements. Exercises LAQ alternating for 5 min with 2# ankle weights, sit to stand 3 sets of 10 NuStep Minutes: 15 NuStep Workload: 6 Treatments transfers, ambulation, functional strengthening Assessment Current Status: Fair Progress improving mobility, patient seemed to be able to stand a little more erect during ambulation PT Short Term Goals Short Term Goals Time Frame: Apr 14, 2017 Gait (FIM): 1 Gait Distance Comment: 20' Gait Level of Assist: 3 Wheelchair Distance: 150'x2 PT Fpc Goals [facility] [place] Goals PT Fpc Goals Time Frame: Apr 28, 2017 Transfers (B,C,W/C) (FIM): 4 Sit to Lying (QC): 6 Lying-Sitting on Side/Bed(QC): 6 Sit to Stand (QC): 4 Rollin Roll Left to Right (QC): 6 Chair/Cxd-sr-Shvbo Xfer(QC): 4 Gait (FIM): 2 Distance: 50' Walk 10 feet (QC): 3 Walk 50ft with 2 Turns (QC): 3 PT Plan Problem List Problem List: Activity Tolerance, Functional Strength, Safety, Balance, Gait, Transfer Treatment/Plan Treatment Plan: Continue Plan of Care Treatment Plan: Bed Mobility, Education, Functional Activity Jeffrey, Functional Strength, Group Therapy, Gait, Safety, Therapeutic Exercise, Transfers Treatment Duration: Apr 28, 2017 Frequency: At least 5-7 days/Wk (IRF) Estimated Hrs Per Day: 1.5 hours per day Patient and/or Family Agrees t: Yes Safety Risks/Education Patient Education: Gait Training, Transfer Techniques, Steps, Correct Positioning, W/C Management, Instructions to Caregiver, Safety Issues Teaching Recipient: Patient, Significant Other Teaching Methods: Demonstration, Discussion Response to Teaching: Reinforcement Needed Trained on transfers and ambulation. He actually ambulated with her with a wheelchair follow. They asked about stairs and it was recommended that she not get on stairs because she is so much of a fall risk. They have a split level home and her asked if she could scoot up the stairs and get into a wheelchair at the top. Patient most likely could do this safely. She has performed several floor transfers into a wheelchair fairly easily and should have little difficulty going up stairs on her bottom. Discharge Recommendations Therapy D/C Recommendations: Home w/ Family Support Time/GCodes Time In: 800 Time Out: 900 Total Billed Treatment Time: 60 Total Billed Treatment 1 visit EX 25' GT 20' FA 15' TANJA FELIX PT Apr 20, 2017 09:01
--- NOTE | 2017-04-20 14:08 | Occupational Ther Daily Note ---
OT Current Status-Daily Note Subjective Pt alert, sitting in w/c. present in room. Pt agreed to therapy. No c /o pain at this time. Mental Status/Objective Patient Orientation: Person, Place, Time, Situation Functional [place] Measure 0=Not Assessed/NA 4=Minimal Assistance 1=Total Assistance 5=Supervision or Setup 2=Maximal Assistance 6=Modified [place] 3=Moderate Assistance 7=Complete [place] ADL-Treatment Functional [place] Measure 0=Not Assessed/NA 4=Minimal Assistance 1=Total Assistance 5=Supervision or Setup 2=Maximal Assistance 6=Modified [place] 3=Moderate Assistance 7=Complete IndependenceIRFPAI Quality Coding Scale 6 Independent with activity with or without an assistive device 5 Patient requires set up or clean up by helper. Patient completes activity by themselves 4 Supervision or touching assist (CGA). [place] provide cues , steadying assist 3 The helper provides less than half the effort to complete the activity 2 The helper provides more than half the effort to complete the activity 1 Dependent. The helper does all the effort to complete an activity 7 Patient refused to complete or attempt activity 9 The patient did not perform the activity before the current illness or injury 88 Not attempted due to Medical conditions or safety concerns Other Treatment Pt maneuvered w/c from room to therapy gym by self. Pt completed arm bike 15 min duration at 35 mark resistance to increase strength and activity tolerance for daily functional tasks. Pt tolerated well and required no recovery breaks. Pt then completed 2 sets 10 reps of arm chair pushups. Pt was encouraged to push arm into extension to get full benefit of push ups. Ataxic movement begins as pt's elbows straighten due to increased extension of hips and knees. After therapy, pt in w/c sitting in room with call light/phone in reach. All needs met in room. OT Short Term Goals Short Term Goals Time Frame: Apr 21, 2017 Toilet/Commode Transfer(FIM): 4 Shower Transfer(FIM): 4 Additional Short Term Goals: 2-Verbalize Understanding, 3-ImproveStrength/Jeffrey 1=Demonstrate adherence to instructed precautions during ADL tasks. 2=Patient will verbalize/demonstrate understanding of assistive devices/ modifications for ADL. 3=Patient will improve strength/tolerance for activity to enable patient to perform ADL's. OT Recreation Facility Manager Goals [facility] Goals Time Frame: Apr 28, 2017 Eating (FIM): 6 Eating (QC): 6 Groomin Oral Hygiene (QC): 6 Bathing(FIM): 6 Shower/Bathe Self (QC): 6 Upper Body Dressing(FIM): 6 Upper Body Dressing (QC): 6 Lower Body Dressing(FIM): 6 Lower Body Dressing (QC): 6 On/Off Footwear (QC): 6 Toileting(FIM): 5 Toileting Hygiene (QC): 5 Toilet/Commode Transfer(FIM): 5 Toilet/Commode Transfer (QC): 5 Shower Transfer(FIM): 5 Will plan for goals to be at bed or w/c level and progress to include standing as tolerated Additional Goals: 2-Verbalize Understanding, 3-ImproveStrength/Jeffrey 1=Demonstrate adherence to instructed precautions during ADL tasks. 2=Patient will verbalize/demonstrate understanding of assistive devices/ modifications for ADL. 3=Patient will improve strength/tolerance for activity to enable patient to perform ADL's. OT Education/Plan Problem List/Assessment Pt would benefit from skilled OT to increase her independence in basic self care to allow her to safely return to her home to live with her and to decrease caregiver burden Discharge Recommendations Plan/Recommendations: Continue POC Treatment Plan/Plan of Care Patient would benefit from OT for education, treatment and training to promote independence in ADL's, mobility, safety and/or upper extremity function for ADL' s. Plan of Care: ADL Retraining, Caregiver Training, Functional Mobility, Group Exercise/Act as Ind (education, exercise, socialization, functional activities, activity tolerance), UE Funct Exercise/Act, UE Neuromus Re-Ed/Coord Treatment Duration: Apr 28, 2017 Frequency: Twice Daily (5- 6 days a week) Estimated Hrs Per Day: 1.5 hours per day Rehab Potential: Guarded Time/GCodes Start Time: 12:30 Stop Time: 13:00 Total Time Billed (hr/min): 30 Billed Treatment Time 1 visit-EX 1 (20 min) FA 1 (10 min) JEANNIE FIELDS Apr 20, 2017 14:08
--- NOTE | 2017-04-20 14:18 | Physical Therapy Daily Note ---
PT Daily Note-Current Subjective Agrees to PT. Reports her participated in training this morning. Transfers Functional [place] Measure 0=Not Assessed/NA 4=Minimal Assistance 1=Total Assistance 5=Supervision or Setup 2=Maximal Assistance 6=Modified [place] 3=Moderate Assistance 7=Complete IndependenceIRFPAI Quality Coding Scale 6 Independent with activity with or without an assistive device 5 Patient requires set up or clean up by helper. Patient completes activity by themselves 4 Supervision or touching assist (CGA). [place] provide cues , steadying assist 3 The helper provides less than half the effort to complete the activity 2 The helper provides more than half the effort to complete the activity 1 Dependent. The helper does all the effort to complete an activity 7 Patient refused to complete or attempt activity 9 The patient did not perform the activity before the current illness or injury 88 Not attempted due to Medical conditions or safety concerns Treatments Gait training 25 ft x 5 reps with FWW with close CGA and followed by wheelchair. Pt walked in hip and knee flexed position with head down, the minute her extension reaches a certain point, her truncal ataxia kicks in and requires rigid assist to maintain balance. Seated B LE ther ex x 15 for AP, LAQ , hip flexion, hip abduction, and ham curls all to increase LE streength to improve functional transfers. Educated patient and reviewed in safety precautions at home to reduce the risk of falls. Pt in room in wheelchair post treatment with needs met. Assessment Progressing. Still unsafe with full upright standing. PT Short Term Goals Short Term Goals Time Frame: Apr 14, 2017 Gait (FIM): 1 Gait Distance Comment: 20' Gait Level of Assist: 3 Wheelchair Distance: 150'x2 PT Celery Tier Goals [facility] Goals PT [facility] Goals Time Frame: Apr 28, 2017 Transfers (B,C,W/C) (FIM): 4 Sit to Lying (QC): 6 Lying-Sitting on Side/Bed(QC): 6 Sit to Stand (QC): 4 Rollin Roll Left to Right (QC): 6 Chair/Zlj-re-Krrxt Xfer(QC): 4 Gait (FIM): 2 Distance: 50' Walk 10 feet (QC): 3 Walk 50ft with 2 Turns (QC): 3 PT Plan Problem List Problem List: Activity Tolerance, Functional Strength, Safety Treatment/Plan Treatment Plan: Continue Plan of Care Treatment Plan: Bed Mobility, Education, Functional Activity Jeffrey, Functional Strength, Group Therapy, Gait, Safety, Therapeutic Exercise, Transfers Treatment Duration: Apr 28, 2017 Frequency: At least 5-7 days/Wk (IRF) Estimated Hrs Per Day: 1.5 hours per day Patient and/or Family Agrees t: Yes Safety Risks/Education Patient Education: Transfer Techniques, Safety Issues Teaching Recipient: Patient Teaching Methods: Discussion Response to Teaching: Verbalize Understanding Time/GCodes Time In: 1300 Time Out: 1330 Total Billed Treatment Time: 30 Total Billed Treatment visit GT 15 EX 15 JEANNIE OROZCO PT Apr 20, 2017 14:18
[2017-04-20] MEDS: acetaZOLAMIDE 250 MG (DIAMOX) TAB PO SCH (14:23)
[2017-04-20 18:23] VITALS: BP 119/68
[2017-04-20] MEDS: clonazePAM 0.5 MG (KlonoPIN) TAB PO SCH (20:19)
[2017-04-20] MEDS: LATANOPROST 0.005% (XALATAN) OPHTH SOLN 2.5 ML OU SCH (20:20)
[2017-04-21 05:42] VITALS: BP 119/68
[2017-04-21] MEDS: PANTOPRAZOLE 40 MG (PROTONIX) TAB PO SCH (06:10)
--- NOTE | 2017-04-21 07:14 | Occupational Ther Daily Note ---
OT Current Status-Daily Note Subjective Pt alert, sitting in w/c. Mental Status/Objective Functional [place] Measure 0=Not Assessed/NA 4=Minimal Assistance 1=Total Assistance 5=Supervision or Setup 2=Maximal Assistance 6=Modified [place] 3=Moderate Assistance 7=Complete [place] ADL-Treatment Functional [place] Measure 0=Not Assessed/NA 4=Minimal Assistance 1=Total Assistance 5=Supervision or Setup 2=Maximal Assistance 6=Modified [place] 3=Moderate Assistance 7=Complete IndependenceIRFPAI Quality Coding Scale 6 Independent with activity with or without an assistive device 5 Patient requires set up or clean up by helper. Patient completes activity by themselves 4 Supervision or touching assist (CGA). [place] provide cues , steadying assist 3 The helper provides less than half the effort to complete the activity 2 The helper provides more than half the effort to complete the activity 1 Dependent. The helper does all the effort to complete an activity 7 Patient refused to complete or attempt activity 9 The patient did not perform the activity before the current illness or injury 88 Not attempted due to Medical conditions or safety concerns Eating (FIM): 6 (Dentures. Pt able to complete set up and use utensils to cut food and feed self.) Eating (QC): 6 (Dentures. Pt able to complete set up and use utensils to cut food and feed self.) Grooming (FIM): 6 (At w/c level, pt is able to complete by self.) Oral Hygiene (QC): 6 (At w/c level, pt is able to complete by self.) Bathing (FIM): 6 (Using shower bench, grabbar and hand held shower pt is able to complete by self.) Bathing Location: L Arm, R Arm, L Upper Leg, R Upper Leg, L Lower Leg ( including foot), R Lower Leg (including foot), Chest, Abdomen, Buttocks, Perineal Area Shower/Bathe Self (QC): 6 (Using shower bench, grabbar and hand held shower pt is able to complete by self.) Upper Body (FIM): 6 (Retrieves clothing at w/c level. Is able to don/doff clothing by self.) Upper Body Dressing (QC): 6 (Retrieves clothing at w/c level. Is able to don/ doff clothing by self.) Lower Body Dressing (FIM): 6 (Retrieves clothing at w/c level. Is able to don/ doff clothing by self either in w/c or lying on bed.) Lower Body Dressing (QC): 6 (Retrieves clothing at w/c level. Is able to don/ doff clothing by self either in w/c or lying on bed.) On/Off Footwear (QC): 6 (Retrieves clothing at w/c level. Is able to don/doff clothing by self.) Toileting (FIM): 6 (Pt is able to complete own hygiene and manipulate clothing. Pt is sitting in w/c to manipulate clothing.) Toileting Hygiene (QC): 6 (Pt is able to complete own hygiene and manipulate clothing. Pt is sitting in w/c to manipulate clothing.) Transfers (B, C, W/C) (FIM): 6 (With modified squat pivot transfer, pt is able to complete transfer.) Toilet/Commode Transfer (FIM): 6 (With modified squat pivot transfer, pt is able to complete transfer. Pt does better with hand hold/grabbar on surface transferred to.) Toilet Transfer (QC): 6 (With modified squat pivot transfer, pt is able to complete transfer. Pt does better with hand hold/grabbar on surface transferred to.) Shower Transfer(FIM): 6 (With modified squat pivot transfer, pt is able to complete transfer. ) Pt completed crawling on mat table to work on alternative transitions from one place to another. No ataxic movements noted during task. Pt then completed fine motor strengthening exercises at table top level in a modified stand using mat table. Pt then maneuvered w/c back to room to work on transfers from w/c to BSC to bed. Pt able to complete with repetition for confidence in transfer. Pt does better when a hand hold is available to the surface being transferred to. After therapy, pt sitting in w/c with call light/phone in reach. All needs met in room. present in room. OT Short Term Goals Short Term Goals Time Frame: Apr 21, 2017 Toilet/Commode Transfer(FIM): 4 Shower Transfer(FIM): 4 Additional Short Term Goals: 2-Verbalize Understanding, 3-ImproveStrength/Jeffrey 1=Demonstrate adherence to instructed precautions during ADL tasks. 2=Patient will verbalize/demonstrate understanding of assistive devices/ modifications for ADL. 3=Patient will improve strength/tolerance for activity to enable patient to perform ADL's. OT Tool Hardener Goals Tool Hardener Goals Time Frame: Apr 28, 2017 Eating (FIM): 6 (met-04/21/2017) Eating (QC): 6 (met-04/21/2017) Groomin (met-04/21/2017) Oral Hygiene (QC): 6 (met-04/21/2017) Bathing(FIM): 6 (met-04/21/2017) Shower/Bathe Self (QC): 6 (met-04/21/2017) Upper Body Dressing(FIM): 6 (met-04/21/2017) Upper Body Dressing (QC): 6 (met04/21/2017) Lower Body Dressing(FIM): 6 (met04/21/2017) Lower Body Dressing (QC): 6 (met04/21/2017) On/Off Footwear (QC): 6 (met04/21/2017) Toileting(FIM): 5 (met-04/21/2017) Toileting Hygiene (QC): 5 (met-04/21/2017) Toilet/Commode Transfer(FIM): 5 (met-04/21/2017) Toilet/Commode Transfer (QC): 5 (met04/21/2017) Shower Transfer(FIM): 5 (met-04/21/2017) Will plan for goals to be at bed or w/c level and progress to include standing as tolerated Additional Goals: 2-Verbalize Understanding, 3-ImproveStrength/Jeffrey 1=Demonstrate adherence to instructed precautions during ADL tasks. 2=Patient will verbalize/demonstrate understanding of assistive devices/ modifications for ADL. 3=Patient will improve strength/tolerance for activity to enable patient to perform ADL's. OT Education/Plan Problem List/Assessment Pt would benefit from skilled OT to increase her independence in basic self care to allow her to safely return to her home to live with her and to decrease caregiver burden Discharge Recommendations Plan/Recommendations: Continue POC Treatment Plan/Plan of Care Patient would benefit from OT for education, treatment and training to promote independence in ADL's, mobility, safety and/or upper extremity function for ADL' s. Plan of Care: ADL Retraining, Caregiver Training, Functional Mobility, Group Exercise/Act as Ind (education, exercise, socialization, functional activities, activity tolerance), UE Funct Exercise/Act, UE Neuromus Re-Ed/Coord Treatment Duration: Apr 28, 2017 Frequency: Twice Daily (5- 6 days a week) Estimated Hrs Per Day: 1.5 hours per day Rehab Potential: Guarded Time/GCodes Start Time: 07:00 Stop Time: 08:00 Total Time Billed (hr/min): 60 Billed Treatment Time 1 visit-ADL 2 (30 min) NM 1 (20 min) FA 1 (10 min) JEANNIE FIELDS Apr 21, 2017 07:14
--- NOTE | 2017-04-21 08:21 | Progress Note (SOAP) ---
Subjective Time Seen by Provider: 08:15 Subjective/Events-last exam truncal ataxia. Patient trying to learn to go fro to stool portable. Has been there all the time Objective Exam Vital Signs Date Time Temp Pulse Resp B/P (MAP) Pulse Ox O2 Delivery O2 Flow Rate FiO2 04/21/17 05:42 96.9 59 18 119/68 98 Room Air 04/20/17 21:00 Room Air 04/20/17 18:23 97.1 66 16 119/68 98 04/20/17 09:00 Room Air I & O 04/21/17 07:00 Intake Total 1120 ml Balance 1120 ml Capillary Refill : General Appearance: No Apparent Distress, Thin HEENT: Normal ENT Inspection Neck: Normal Inspection Respiratory: Chest Non Tender, No Accessory Muscle Use, No Respiratory Distress Cardiovascular: Regular Rate, Rhythm, No Murmur Assessment/Plan Assessment/Plan Assess & Plan/Chief Complaint truncal ataxia. COPD GERD. Noncardiac chest pain. Irritable bowel syndrome. Frozen left shoulder. . 04/11/17. Truncal ataxia. COPD. GERd. Frozen left shoulder. Patient has problems standing up. . 04/12/17. Truncal ataxia. COPD. GERD. Patient still having problems. . 04/13/17 truncal ataxia. COPD. GERD. Irritable bowel syndrome. Patient working progress. Has problems standing up. . 04/14/17. Truncal ataxia. COPD. GERD. Patient working hard. . 04/17/17. Truncal ataxia. COPD Patient transferring better. Patient sleepy with Klonopin in the morning.. 2 DC Klonopin in the morning GERD. . 04/18/17. Truncal ataxia. COPD. Patient doing better with Klonopin once daily. Patient trying to learn to transfer better. Patient shaking still when stands up. . 04/19/17. Truncal ataxia. Patient needed help in transfers.. . 04/20/17. Truncal ataxia. Patient working the best she could. passive within helping.. . 04/21/17. Truncal ataxia. Patient trying to learn to transfer portable stool Clinical Quality Measures DVT/VTE Risk/Contraindication: Risk Factor Score Per Nursin RFS Level Per Nursing on Admit: 4+=Very High PRINCE DA SILVA DO Apr 21, 2017 08:21
--- NOTE | 2017-04-21 09:48 | PM & R (SOAP) Progress Note ---
Subjective Time Seen by Provider: 07:45 Subjective/Events-last exam Patient was seen in GYM with her spouse this AM Patient [facility] to [facility] for transfers Has involuntary movement of trunck kick in at times despite positioning and postural adaptatioons and current meds Family training ongoing Discharge remains set for Monday04/23/17 to home Objective Exam Last Set of Vital Signs Vital Signs Date Time Temp Pulse Resp B/P (MAP) Pulse Ox O2 Delivery O2 Flow Rate FiO2 04/21/17 05:42 96.9 59 18 119/68 98 Room Air Capillary Refill : I&O Intake and Output 04/20/17 23:59 Intake Total 1220 ml Balance 1220 ml Intake Oral 1220 ml # Voids 6 # Bowel Movements 1 General: Alert, Oriented X3, Cooperative, No Acute Distress HEENT: Atraumatic, PERRLA, EOMI, Mucous Memb Moist/[place] Neck: Supple, No JVD Lungs: Clear to Auscultation Heart: Regular Rate Abdomen: Normal Bowel Sounds, Soft, No Tenderness Extremities: No Edema Skin: No Rashes Neuro: Other (truncal ataxia) Assessment/Plan Assessment 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 with postural changes for transfers with perhaps some improvement as well with Klonopin-now transferring with min assist with postural adjustments IBS on meds GERD on med Glaucoma on eye drops Small Cervical sphrinx as per MRI Plan Continue PT/OT ST has signed off Appreciate DR Simons note Check MRI of T and L spine-done Obtain copy of MRI C Spine OSH so can compare-done awaiting review by Radiologist Spouse indicates that [facility] assessssment was for PsYch issues and no Imaging done TRial of clonazepam as per above-in progress Referral to movement disorder specialist done -has appointment in 5 weeks Team Conference held 04-19-17-See report for full functional update and POC Discharge remains set for 04/23/17 See orders Discussed results of MRI Cervical and,Thoriacic spine with patient and spouse F/U with DR Malcolm PCP in [place] and Neurologist in [facility]. LIAM PATRICK MD Apr 21, 2017 09:48
[2017-04-21] MEDS: COLAZAL PO SCH ×2 (09:53→20:30)
[2017-04-21] MEDS ORDERED: ACET125T2 PO (09:54)
[2017-04-21] MEDS ORDERED: CLON0.5T3 PO (09:54)
--- NOTE | 2017-04-21 11:30 | Physical Therapy Daily Note ---
PT Daily Note-Current Subjective Agreeable to PT. Pt and spouse report they participated in family training yesterday and felt comfortable what they had worked on. Spouse agreeable to continued training this date. Pain Numeric Pain Scale: 0-No Pain Location: No Pain Reported Mental Status Patient Orientation: Person, Place, Time, Situation Transfers Functional [place] Measure 0=Not Assessed/NA 4=Minimal Assistance 1=Total Assistance 5=Supervision or Setup 2=Maximal Assistance 6=Modified [place] 3=Moderate Assistance 7=Complete IndependenceIRFPAI Quality Coding Scale 6 Independent with activity with or without an assistive device 5 Patient requires set up or clean up by helper. Patient completes activity by themselves 4 Supervision or touching assist (CGA). [place] provide cues , steadying assist 3 The helper provides less than half the effort to complete the activity 2 The helper provides more than half the effort to complete the activity 1 Dependent. The helper does all the effort to complete an activity 7 Patient refused to complete or attempt activity 9 The patient did not perform the activity before the current illness or injury 88 Not attempted due to Medical conditions or safety concerns Transfers (B, C, W/C) (FIM): 5 Roll Left to Right (QC): 6 Sit to Lying (QC): 6 Sit to Stand (QC): 5 (squat pivot transfer) Chair/Ngz-jd-Nucbt Xfer(QC): 5 (squat pivot transfer) Car Transfer (QC): 5 (squat pivot transfer with supervision and cues to keep her head down 50 % of the time. ) Worked on floor transfer as well with patient and spouse education to include safety , positioning, transitioning. Pt able to complete transfer to / from the floor with supervision only. She is able to scoot about the floor without assist as well. Gait Training Gait (FIM): 2 Distance (FIM): 1=up to 49 ft Distance: 25 ft x 2 Walk 10 feet (QC): 4 Walk 50 ft with 2 Turns(QC): 88 Walk 150 ft (QC): 88 Walking 10ft/uneven surface-QC: 4 Gait Level of Assist: 4 (CGA for safety and skilled cues to maintain squat positin with head down 50% of the time. ) Gait Assistive Device: FWW Wheelchair Training Does the Pt Use a Wheelchair?: Yes Wheelchair (FIM): 6 Wheelchair Distance: 3=150 ft Wheel 50 ft with 2 turns (QC): 6 Wheel 150 ft (QC): 6 Type of Wheelchair: Manual Stair Training Stairs (FIM): 5 #of Steps: 8 1 Step (curb) (QC): 6 4 Steps (QC): 6 12 Steps (QC): 88 pt able to scoot up/down 8 steps without assist. Pt and family training on effective stair manipulation on her buttock for safest entry/exit into her home. Balance Picking up an Object (QC): 88 Treatments Transfer, stair, car and family training throughout visit. Pt and spouse verbalized understanding and demonstrated ability to complete transfers. Assessment Current Status: Good Progress Pt is planned to discharge on Monday. Feel that we have completed family training and covered multiple scenarios. Recommend [facility] PT to follow to specifically address her home and safety within her home. Pt has made progress in terms of learning to manage her disability and to compensate for her barriers. Spouse seems to understand her needs as well. PT Short Term Goals Short Term Goals Time Frame: Apr 14, 2017 Gait (FIM): 1 Gait Distance Comment: 20' Gait Level of Assist: 3 Wheelchair Distance: 150'x2 PT Assisted Goals Assisted Goals PT Field Artillery Officer Goals Time Frame: Apr 28, 2017 Transfers (B,C,W/C) (FIM): 4 (exceeed) Sit to Lying (QC): 6 Lying-Sitting on Side/Bed(QC): 6 Sit to Stand (QC): 4 Rollin Roll Left to Right (QC): 6 Chair/Kmy-ok-Znmvz Xfer(QC): 4 Gait (FIM): 2 (met) Distance: 50' Walk 10 feet (QC): 3 Walk 50ft with 2 Turns (QC): 3 PT Plan Problem List Problem List: Activity Tolerance, Functional Strength, Safety Treatment/Plan Treatment Plan: Continue Plan of Care Treatment Plan: Bed Mobility, Education, Functional Activity Jeffrey, Functional Strength, Group Therapy, Gait, Safety, Therapeutic Exercise, Transfers Treatment Duration: Apr 28, 2017 Frequency: At least 5-7 days/Wk (IRF) Estimated Hrs Per Day: 1.5 hours per day Patient and/or Family Agrees t: Yes Safety Risks/Education Patient Education: Transfer Techniques, Safety Issues Teaching Recipient: Patient Teaching Methods: Demonstration, Discussion Response to Teaching: Verbalize Understanding, Return Demonstration Discharge Recommendations Therapy D/C Recommendations: Physical Therapy Home Care (strongly encouraged pt to allow HHC PT to come to her home) Time/GCodes Time In: 820 Time Out: 910 Total Billed Treatment Time: 50 Total Billed Treatment visit FA 50 JEANNIE OROZCO PT Apr 21, 2017 11:30
--- NOTE | 2017-04-21 12:23 | Physical Therapy Daily Note ---
PT Daily Note-Current Subjective Pt and spouse voiced no questions or concerns. Transfers Functional [place] Measure 0=Not Assessed/NA 4=Minimal Assistance 1=Total Assistance 5=Supervision or Setup 2=Maximal Assistance 6=Modified [place] 3=Moderate Assistance 7=Complete IndependenceIRFPAI Quality Coding Scale 6 Independent with activity with or without an assistive device 5 Patient requires set up or clean up by helper. Patient completes activity by themselves 4 Supervision or touching assist (CGA). [place] provide cues , steadying assist 3 The helper provides less than half the effort to complete the activity 2 The helper provides more than half the effort to complete the activity 1 Dependent. The helper does all the effort to complete an activity 7 Patient refused to complete or attempt activity 9 The patient did not perform the activity before the current illness or injury 88 Not attempted due to Medical conditions or safety concerns Treatments reviewed with with patient and spouse transfers. They voiced no questions at this time. Assessment Preparing for discharge on Monday. PT Short Term Goals Short Term Goals Time Frame: Apr 14, 2017 Gait (FIM): 1 Gait Distance Comment: 20' Gait Level of Assist: 3 Wheelchair Distance: 150'x2 PT Residential Goals Branch Account Executive Goals PT Residential Goals Time Frame: Apr 28, 2017 Transfers (B,C,W/C) (FIM): 4 (exceeed) Sit to Lying (QC): 6 Lying-Sitting on Side/Bed(QC): 6 Sit to Stand (QC): 4 Rollin Roll Left to Right (QC): 6 Chair/Xch-lr-Rhvqm Xfer(QC): 4 Gait (FIM): 2 (met) Distance: 50' Walk 10 feet (QC): 3 Walk 50ft with 2 Turns (QC): 3 PT Plan Problem List Problem List: Activity Tolerance, Functional Strength, Safety Treatment/Plan Treatment Plan: Continue Plan of Care Treatment Plan: Bed Mobility, Education, Functional Activity [place], Functional Strength, Group Therapy, Gait, Safety, Therapeutic Exercise, Transfers Treatment Duration: Apr 28, 2017 Frequency: At least 5-7 days/Wk (IRF) Estimated Hrs Per Day: 1.5 hours per day Patient and/or Family Agrees t: Yes Safety Risks/Education Reviewed safety and transfers. Pt and spouse voiced not questions at this time. Discharge Recommendations Therapy D/C Recommendations: Physical Therapy Home Care Time/GCodes Time In: 1125 Time Out: 1135 Total Billed Treatment Time: 10 Total Billed Treatment visit FA 10 JEANNIE OROZCO PT Apr 21, 2017 12:23
[2017-04-21] MEDS: acetaZOLAMIDE 250 MG (DIAMOX) TAB PO SCH (14:03)
--- NOTE | 2017-04-21 14:28 | Therapy Group Daily Note ---
Therapy Daily Group Note Patient Education Topic Other List Below Exercises LE Seated Exercise, UE Exercise Other/Notes Pt was an active participant in OT/PT group. She introduced herself by describing a school memory. She contributed to group discussion/education on memory strategies and was able to make matches on a memory activity. She also did seated UE and LE exercises to strengthen herself for transfers and ADLs. She took herself back to her room per w/c, all needs met. Start Time: 13:00 Stop Time: 14:00 Total Billed Treatment Time: 60 Total Billed Treatment visit, 60 minutes group JOANNE CARVAJAL OT Apr 21, 2017 14:28
[2017-04-21 17:38] VITALS: BP 168/64
[2017-04-21] MEDS: clonazePAM 0.5 MG (KlonoPIN) TAB PO SCH (20:29)
[2017-04-21] MEDS: LATANOPROST 0.005% (XALATAN) OPHTH SOLN 2.5 ML OU SCH (20:30)
[2017-04-22 05:00] VITALS: BP 129/61
[2017-04-22] MEDS: PANTOPRAZOLE 40 MG (PROTONIX) TAB PO SCH (06:16)
[2017-04-22] MEDS: COLAZAL PO SCH ×2 (08:18→20:13)
--- NOTE | 2017-04-22 13:37 | Physical Therapy Daily Note ---
PT Daily Note-Current Subjective Pt denies pain or discomfort while seated. Mental Status Patient Orientation: Person, Place, Time, Situation Transfers Functional [place] Measure 0=Not Assessed/NA 4=Minimal Assistance 1=Total Assistance 5=Supervision or Setup 2=Maximal Assistance 6=Modified [place] 3=Moderate Assistance 7=Complete IndependenceIRFPAI Quality Coding Scale 6 Independent with activity with or without an assistive device 5 Patient requires set up or clean up by helper. Patient completes activity by themselves 4 Supervision or touching assist (CGA). [place] provide cues , steadying assist 3 The helper provides less than half the effort to complete the activity 2 The helper provides more than half the effort to complete the activity 1 Dependent. The helper does all the effort to complete an activity 7 Patient refused to complete or attempt activity 9 The patient did not perform the activity before the current illness or injury 88 Not attempted due to Medical conditions or safety concerns Transfers (B, C, W/C) (FIM): 6 Sit to/from Stand: 6 Gait Training Does the Patient Walk?: Yes Gait (FIM): 3 Distance (FIM): 3=150 ft Distance: 25-40ft x4 Gait Assistive Device: FWW Pt has to maintain trunk flexion and hip flexion of at least 75 degrees in standing to avoid ataxia and spasticity. Wheelchair Training Does the Pt Use a Wheelchair?: Yes Wheelchair (FIM): 6 Wheelchair Distance: 3=150 ft Distance: 200ft Wheelchair Level of Assist: 6 Exercises Supine Ex: LE Protocol Supine Reps: 20 Seated Therapy Exercises: LE Protocol Seated Reps: 20 Assessment Current Status: Fair Progress Pt was able to look up during ambulation as long as the torso and hips remained flexed. She was shown supine and seated ex, and discussed that she would benefit from continuing those exercises at home. PT Short Term Goals Short Term Goals Time Frame: Apr 14, 2017 Gait (FIM): 1 Gait Distance Comment: 20' Gait Level of Assist: 3 Wheelchair Distance: 150'x2 PT Conventional Underwriter Goals Conventional Underwriter Goals PT Snf Goals Time Frame: Apr 28, 2017 Transfers (B,C,W/C) (FIM): 4 (exceeed) Sit to Lying (QC): 6 Lying-Sitting on Side/Bed(QC): 6 Sit to Stand (QC): 4 Rollin Roll Left to Right (QC): 6 Chair/Vdj-cy-Daccz Xfer(QC): 4 Gait (FIM): 2 (met) Distance: 50' Walk 10 feet (QC): 3 Walk 50ft with 2 Turns (QC): 3 PT Plan Treatment/Plan Treatment Plan: Continue Plan of Care Treatment Plan: Bed Mobility, Education, Functional Activity [place], Functional Strength, Group Therapy, Gait, Safety, Therapeutic Exercise, Transfers Treatment Duration: Apr 28, 2017 Frequency: At least 5-7 days/Wk (IRF) Estimated Hrs Per Day: 1.5 hours per day Patient and/or Family Agrees t: Yes Time/GCodes Time In: 0950 Time Out: 1015 Total Billed Treatment Time: 25 Total Billed Treatment 1, gt 15, ex 10 REBECCA ZHAO PT Apr 22, 2017 13:37
[2017-04-22] MEDS: acetaZOLAMIDE 250 MG (DIAMOX) TAB PO SCH (13:46)
[2017-04-22 17:49] VITALS: BP 137/72
[2017-04-22] MEDS: clonazePAM 0.5 MG (KlonoPIN) TAB PO SCH (20:13)
[2017-04-22] MEDS: LATANOPROST 0.005% (XALATAN) OPHTH SOLN 2.5 ML OU SCH (20:13)
[2017-04-23 05:59] VITALS: BP 132/58
[2017-04-23] MEDS: PANTOPRAZOLE 40 MG (PROTONIX) TAB PO SCH (06:14)
[2017-04-23] MEDS: COLAZAL PO SCH (08:12)
[2017-04-23 09:03] VITALS: BP 132/58
--- NOTE | 2017-04-24 15:55 | Therapy Team Discharge Summary ---
Therapy Discharge Summary Discharge Recommendations Date of Discharge Apr 23, 2017 at 08:45 Therapy D/C Recommendations: Occupational Therapy Home Care, Physical Therapy Home Care Occupational Therapy Pt was seen for skilled OT to increase her independence in basic self care to allow her to return home safely and to decrease caregiver burden. On admission pt presented with ballistic ataxia that was evident with hip and knee extension. She was modified independent with eating, needed setup and supervision for grooming, bathing and dressing and was dependant for toileting and toilet transfer, requiring two people. She learned modified transfers and worked on techniques and positions to decrease the ataxia. By discharge she was modified independent at a wheelchair level with all of her basic ADLs, including eating, grooming, dressing, bathing and toileting. Equipment used included wheelchair, shower bench, grab bars, hand held shower, bedside commode. She will need a transfer tub bench for hoe. Home health OT is recommended. See tx plan for goals met. PT Shelter Goals Shelter Goals PT Shelter Goals Time Frame: Apr 28, 2017 Transfers (B,C,W/C) (FIM): 4 (exceeed) Roll Left to Right (QC): 6 Sit to Lying (QC): 6 Lying-Sitting on Side/Bed(QC): 6 Sit to Stand (QC): 4 Chair/Jgd-kw-Tsodr Xfer(QC): 4 Gait (FIM): 2 (met) Distance: 50' Walk 10 feet (QC): 3 Walk 50ft with 2 Turns (QC): 3 OT Shelter Goals Motor Tester Goals Time Frame: Apr 28, 2017 Eating (FIM): 6 (met-04/21/2017) Eating (QC): 6 (met-04/21/2017) Oral Hygiene (QC): 6 (met-04/21/2017) Grooming(FIM): 6 (met-04/21/2017) Bathing(FIM): 6 (met-04/21/2017) Shower/Bathe Self (QC): 6 (met-04/21/2017) Upper Body Dressing(FIM): 6 (met-04/21/2017) Upper Body Dressing (QC): 6 (met-04/21/2017) Lower Body Dressing(FIM): 6 (met-04/21/2017) Lower Body Dressing (QC): 6 (met-04/21/2017) On/Off Footwear (QC): 6 (met-04/21/2017) Toileting(FIM): 5 (met-04/21/2017) Toileting Hygiene (QC): 5 (met-04/21/2017) Toilet/Commode Transfer(FIM): 5 (met-04/21/2017) Toilet/Commode Transfer (QC): 5 (met-04/21/2017) Shower Transfer(FIM): 5 (met-04/21/2017) Will plan for goals to be at bed or w/c level and progress to include standing as tolerated Additional Goals: 2-Verbalize Understanding, 3-ImproveStrength/Jeffrey 1=Demonstrate adherence to instructed precautions during ADL tasks. 2=Patient will verbalize/demonstrate understanding of assistive devices/ modifications for ADL. 3=Patient will improve strength/tolerance for activity to enable patient to perform ADL's. JOANNE CARVAJAL OT Apr 24, 2017 15:55
--- NOTE | 2017-04-25 11:12 | Therapy Team Discharge Summary ---
Therapy Discharge Summary Discharge Recommendations Date of Discharge Apr 23, 2017 at 08:45 Therapy D/C Recommendations: Occupational Therapy Home Care, Physical Therapy Home Care Physical Therapy Patient came to rehab with ataxia. Upon evaluation patient performed bed mobility with SBA, sit to stand and stand pivot transfer with mod assist, and could propel a manual wheelchair 150' with SBA. No ambulation or stairs at this point. Patient has been performing bed mobility and transfer training, balance and endurance training, functional strengthening, gait training, and education. Patient has made fair progress but was only able to meet her transfers and ambulation termination clerk goals. Now, patient performs bed mobility with mod I, transfers with SBA, ambulates 20-50' with min assist using a rolling walker (in a squatted position), can propel a manual wheelchair 150' with mod I, and can go up and down 8 steps by scooting on her bottom with SBA. Patient has been discharged from this facility and will be discharged from PT at this time. PT Alf Goals Alf Goals PT Alf Goals Time Frame: Apr 28, 2017 Transfers (B,C,W/C) (FIM): 4 (exceeed) Roll Left to Right (QC): 6 Sit to Lying (QC): 6 Lying-Sitting on Side/Bed(QC): 6 Sit to Stand (QC): 4 Chair/Quz-ja-Sxxcj Xfer(QC): 4 Gait (FIM): 2 (met) Distance: 50' Walk 10 feet (QC): 3 Walk 50ft with 2 Turns (QC): 3 OT Alf Goals Hygiene Assistant Goals Time Frame: Apr 28, 2017 Eating (FIM): 6 (met-04/21/2017) Eating (QC): 6 (met-04/21/2017) Oral Hygiene (QC): 6 (met-04/21/2017) Grooming(FIM): 6 (met-04/21/2017) Bathing(FIM): 6 (met-04/21/2017) Shower/Bathe Self (QC): 6 (met-04/21/2017) Upper Body Dressing(FIM): 6 (met-04/21/2017) Upper Body Dressing (QC): 6 (met-04/21/2017) Lower Body Dressing(FIM): 6 (met-04/21/2017) Lower Body Dressing (QC): 6 (met-04/21/2017) On/Off Footwear (QC): 6 (met-04/21/2017) Toileting(FIM): 5 (met-04/21/2017) Toileting Hygiene (QC): 5 (met-04/21/2017) Toilet/Commode Transfer(FIM): 5 (met-04/21/2017) Toilet/Commode Transfer (QC): 5 (met-04/21/2017) Shower Transfer(FIM): 5 (met-04/21/2017) Will plan for goals to be at bed or w/c level and progress to include standing as tolerated Additional Goals: 2-Verbalize Understanding, 3-ImproveStrength/Jeffrey 1=Demonstrate adherence to instructed precautions during ADL tasks. 2=Patient will verbalize/demonstrate understanding of assistive devices/ modifications for ADL. 3=Patient will improve strength/tolerance for activity to enable patient to perform ADL's. TANJA FELIX PT Apr 25, 2017 11:12
== END 2017-04-23 08:45 | disposition home health service (06) | DRG 57 ==
LOC: ENPENDDIS 04-23 12:00
PROVIDERS: ADMIT Physical Medicine & Rehabilitation; ATTEND Physical Medicine & Rehabilitation
DX: G95.0 Syringomyelia and syringobulbia (principal); R27.0 Ataxia, unspecified; G25.3 Myoclonus; M75.02 Adhesive capsulitis of left shoulder; J44.9 Chronic obstructive pulmonary disease, unspecified; K21.9 Gastro-esophageal reflux disease without esophagitis; K44.9 Diaphragmatic hernia without obstruction or gangrene; K58.9 Irritable bowel syndrome, unspecified; R07.89 Other chest pain; H40.9 Unspecified glaucoma
CPT/HCPCS: 36415; 72146; 72148; 80053; 85025

== ENCOUNTER 2022-04-07 06:59 | Emergency (ER) | payer MEDICARE, OTHER ==
[~2022-04-07] VITALS: Ht 157 cm; Wt 50.0 kg
[~2022-04-07 06:59] MED LIST: ACET125T2 PO; BALS750C7 PO; CLON0.5T4 PO; CNC1KV INJ; LATA2.5D5 OU; NF-ESOM40C PO
[2022-04-07 07:20] LABS: BASOPHILS # (AUTO) 0.1 10^3/uL (0.0-0.1); BASOPHILS % (AUTO) 0 % (0-10); EOSINOPHILS # (AUTO) 0.2 10^3/uL (0.0-0.3); EOSINOPHILS % (AUTO) 2 % (0-10); HEMATOCRIT 39 % (35-52); HEMOGLOBIN 12.8 g/dL (11.5-16.0); LYMPHOCYTES # (AUTO) 1.4 10^3/uL (1.0-4.0); LYMPHOCYTES % (AUTO) 13 % (12-44); MEAN CORPUSCULAR HEMOGLOBIN 31 pg (25-34); MEAN CORPUSCULAR HGB CONC 33 g/dL (32-36); MEAN CORPUSCULAR VOLUME 94 fL (80-99); MEAN PLATELET VOLUME 10.4 fL (9.0-12.2); MONOCYTES # (AUTO) 0.9 10^3/uL (0.0-1.0); MONOCYTES % (AUTO) 8 % (0-12); NEUTROPHILS # (AUTO) 8.6 10^3/uL (1.8-7.8); NEUTROPHILS % (AUTO) 77 % (42-75); PLATELET COUNT 234 10^3/uL (130-400); WHITE BLOOD COUNT 11.1 10^3/uL (4.3-11.0)
--- NOTE | 2022-04-07 07:20 | ED Cardiac General ---
History of Present Illness General Chief Complaint: Chest Pain Stated Complaint: CHEST PAIN Nursing Triage Note: pt states cough and chest pain for a couple days, hard to catch her breath Source: patient Exam Limitations: no limitations History of Present Illness Date Seen by Provider: Apr 07, 2022 Time Seen by Provider: 07:04 Initial Comments 81yoF with PMH of UC, osteoporosis, glaucoma, OA coming in due to chest pressure, coughing, and throat irritation. Started a couple days ago. Symptoms worsening over time. The chest pressure is in the center of her chest, is constant. Nothing makes it feel better or worse. She has associated mild SOA. No fever, vomiting, diarrhea, abd pain, rash, weakness, numbness, headache, or any other concerns. Of note, she was diagnosed with a UTI about a week ago and is finishing antibiotics now. 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 Allergies and Home Medications Allergies Coded Allergies: No Known Drug Allergies (Unverified , 04/07/17) Patient Home Medication List Home Medication List Reviewed: Yes Acetazolamide (Acetazolamide) 125 Mg Tablet, 125 MG PO 1400 Prescribed by: LIAM PATRICK on 04/21/17 0954 Balsalazide Disodium (Colazal) 750 Mg Capsule, 2,250 MG PO BID, (Reported) Entered as Reported by: HEMANT CONTRERAS on 04/10/17 145 Clonazepam (Clonazepam) 0.5 Mg Tablet, 0.5 MG PO DAILY@2100 Prescribed by: LIAM PATRICK on 04/21/17 0954 Cyanocobalamin (Cyanocobalamin Injection) 1,000 Mcg/Ml Inj, 1,000 MCG INJ MONTHLY, (Reported) Entered as Reported by: HEMANT CONTRERAS on 04/10/17 145 Esomeprazole Magnesium (Nexium) 40 Mg Cap, 40 MG PO DAILY, (Reported) Entered as Reported by: HEMANT CONTRERAS on 04/10/17 145 Latanoprost (Latanoprost) 2.5 Ml Drops, 1 DROP OU HS, (Reported) Entered as Reported by: HEMANT CONTRERAS on 04/10/17 145 Review of Systems Review of Systems Constitutional: No fever EENTM: No Blurred Vision Respiratory: Cough, Shortness of Air Cardiovascular: Chest Pain Gastrointestinal: Denies Abdominal Pain Genitourinary: No Symptoms Reported Musculoskeletal: no symptoms reported Skin: no symptoms reported Psychiatric/Neurological: No Symptoms Reported Endocrine: No Symptoms Reported Hematologic/Lymphatic: No Symptoms Reported All Other Systems Reviewed Negative Unless Noted: Yes Past Gbajlnl-Ewyjbc-Xtoisp Hx Patient Social History Tobacco Use?: No Substance use?: No Alcohol Use?: Yes Alcohol type: Beer Alcohol Frequency: Once in a while Immunizations Up To Date Third COVID19 Vaccination Date: 10/2021 COVID19 Vaccine 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: moderna Seasonal Allergies Seasonal Allergies: No Past Medical History Surgery/Hospitalization HX: gallbladder, hysterectomy, clean heart cath "a couple yrs ago" Surgeries: Yes Abdominal, Orthopedic Respiratory: No Cardiac: Yes Neurological: Yes (ataxia) Gastrointestinal: Yes Colitis, Gastroesophageal Reflux, Obstructive Bowel, Irritable Bowel Musculoskeletal: Yes Degenerate Disk Disease, Osteoporosis Endocrine: No Cataract Loss of Vision: Denies Hearing Impairment: Denies Cancer: No Psychosocial: No Integumentary: No Blood Disorders: No Family Medical History Diabetes mellitus grandparents FH: brain cancer 19 MOTHER Hypercholesterolemia 19 MOTHER Physical Exam Vital Signs Vital Signs - First Documented 04/07/22 07:06 Temp 36.8 Pulse 107 B/P (MAP) 184/79 (114) Pulse Ox 97 O2 Delivery Room Air Capillary Refill : Less Than 3 Seconds Height, Weight, BMI Height: 5'2.00" Weight: 119lbs. 1.0oz. [id number]; 20.00 BMI Method: General Appearance: No Apparent Distress HEENT: PERRL/EOMI, Normal ENT Inspection, Pharynx Normal Neck: Full Range of Motion, Normal Inspection, Non Tender, Supple Respiratory: Chest Non Tender, Lungs Clear, Normal Breath Sounds, No Accessory Muscle Use, No Respiratory Distress Cardiovascular: Regular Rate, Rhythm, No Edema, Normal Peripheral Pulses Gastrointestinal: Normal Bowel Sounds, Non Tender, Soft; No Distended, No Guarding Extremity: Normal Capillary Refill, Normal Inspection, Normal Range of Motion, Non Tender, No Calf Tenderness, No Pedal Edema Neurologic/Psychiatric: Alert, No Motor/Sensory Deficits, Normal Mood/Affect Skin: Normal Color, Warm/Dry Lymphatic: No Adenopathy Progress/Results/Core Measures Results/Orders Lab Results Laboratory Tests Test 04/07/22 07:13 04/07/22 07:20 Range/Units White Blood Count 11.1 H 4.3-11.0 10^3/uL Red Blood Count 4.15 3.80-5.11 10^6/uL Hemoglobin 12.8 11.5-16.0 g/dL Hematocrit 39 35-52 % Mean Corpuscular Volume 94 80-99 fL Mean Corpuscular Hemoglobin 31 25-34 pg Mean Corpuscular Hemoglobin Concent 33 32-36 g/dL Red Cell Distribution Width 12.2 10.0-14.5 % Platelet Count 234 130-400 10^3/uL Mean Platelet Volume 10.4 9.0-12.2 fL Immature Granulocyte % (Auto) 0 % Neutrophils (%) (Auto) 77 H 42-75 % Lymphocytes (%) (Auto) 13 12-44 % Monocytes (%) (Auto) 8 0-12 % Eosinophils (%) (Auto) 2 0-10 % Basophils (%) (Auto) 0 0-10 % Neutrophils # (Auto) 8.6 H 1.8-7.8 10^3/uL Lymphocytes # (Auto) 1.4 1.0-4.0 10^3/uL Monocytes # (Auto) 0.9 0.0-1.0 10^3/uL Eosinophils # (Auto) 0.2 0.0-0.3 10^3/uL Basophils # (Auto) 0.1 0.0-0.1 10^3/uL Immature Granulocyte # (Auto) 0.0 0.0-0.1 10^3/uL Prothrombin Time 12.8 12.2-14.7 SEC INR Comment 0.9 0.8-1.4 Activated Partial Thromboplast Time 28 24-35 SEC Sodium Level 140 135-145 MMOL/L Potassium Level 3.9 3.6-5.0 MMOL/L Chloride Level 103 98-107 MMOL/L Carbon Dioxide Level 22 21-32 MMOL/L Anion Gap 15 H 5-14 MMOL/L Blood Urea Nitrogen 10 7-18 MG/DL Creatinine 0.67 0.60-1.30 MG/DL Estimat Glomerular Filtration Rate 87 BUN/Creatinine Ratio 15 Glucose Level 146 H 70-105 MG/DL Calcium Level 9.4 8.5-10.1 MG/DL Corrected Calcium 9.3 8.5-10.1 MG/DL Magnesium Level 1.9 1.6-2.4 MG/DL Total Bilirubin 0.6 0.1-1.0 MG/DL Aspartate Amino Transf (AST/SGOT) 42 H 5-34 U/L Alanine Aminotransferase (ALT/SGPT) 27 0-55 U/L Alkaline Phosphatase 105 40-136 U/L Troponin I < 0.028 <0.028 NG/ML B-Type Natriuretic Peptide 186.6 H <100.0 PG/ML Total Protein 6.9 6.4-8.2 GM/DL Albumin 4.1 3.2-4.5 GM/DL Influenza Type A (RT-PCR) Not Detected Not Detecte Influenza Type B (RT-PCR) Not Detected Not Detecte SARS-CoV-2 RNA (RT-PCR) Not Detected Not Detecte My Orders Orders - SHERRON SANTIAGO MD Ekg Tracing (04/07/22 07:04) Cbc With Automated Diff (04/07/22 07:09) Magnesium (04/07/22 07:09) Chest 1 View, Ap/Pa Only (04/07/22 07:09) Ekg Tracing (04/07/22 07:09) Comprehensive Metabolic Panel (04/07/22 07:09) Protime With Inr (04/07/22 07:09) Partial Thromboplastin Time (04/07/22 07:09) O2 (04/07/22 07:09) Monitor-Rhythm Ecg Trace Only (04/07/22 07:09) Ed Iv/Invasive Line Start (04/07/22 07:09) Bnp Nicola (04/07/22 07:09) Troponin I Nicola (04/07/22 07:09) Covid 19 Inhouse Test (04/07/22 07:28) Influenza A And B By Pcr (04/07/22 07:28) Aspirin Chewable Tablet (Baby Aspirin Ch (04/07/22 07:45) Acetaminophen Tablet (Tylenol Tablet) (04/07/22 07:45) Antacid Suspension (Mylanta Suspension (04/07/22 07:45) Famotidine Tablet (Pepcid Tablet) (04/07/22 07:45) Ondansetron Injection (Zofran Injectio (04/07/22 07:45) Medications Given in ED Current Medications Medications Dose Ordered Sig/Adolfo Route Start Time Stop Time Status Last Admin Dose Admin Acetaminophen 1,000 mg ONCE ONCE PO 04/07/22 07:45 04/07/22 07:46 DC 04/07/22 07:46 1,000 MG Al Hydrox/Mg Hydrox/Simethicone 30 ml ONCE ONCE PO 04/07/22 07:45 04/07/22 07:46 DC 04/07/22 07:46 30 ML Aspirin 324 mg ONCE ONCE PO 04/07/22 07:45 04/07/22 07:46 DC 04/07/22 07:47 324 MG Famotidine 20 mg ONCE ONCE PO 04/07/22 07:45 04/07/22 07:46 DC 04/07/22 07:46 20 MG Ondansetron HCl 4 mg ONCE ONCE IVP 04/07/22 07:45 04/07/22 07:46 DC 04/07/22 07:47 4 MG Vital Signs/I&O 04/07/22 04/07/22 07:06 07:46 Temp 36.8 36.8 Pulse 107 B/P (MAP) 184/79 (114) Pulse Ox 97 O2 Delivery Room Air Blood Pressure Mean: 114 Progress Progress Note : Progress Note 81-year-old female with above history coming in due to chest pain and cough. ABCs were intact and vitals are stable on presentation. Physical exam reassuring with no focal abnormalities. EKG with no acute ischemic changes. Troponin negative, and given she has had constant pain for over 24 hours, it is very unlikely this is ACS related. She is otherwise low risk for PE, not having any tachycardia or hypoxia, and I feel like it is very unlikely. Chest x-ray clear without any abnormalities. COVID and flu test negative. Patient has had similar symptoms in the past and had a heart cath which was normal. Patient given a GI cocktail with some improvement in symptoms. I will have her follow- up with her regular doctor if things are not improving. If pain gets worse she is to come back to the ER. Of note, while discharging the patient, she mentioned that she started taking losartan within the past month, dry cough started recently after. Very possible this is related. I told her if the cough is still present in the next week she should call her doctor and try to switch blood pressure medicines. Initial ECG Impression Date: Apr 07, 2022 Initial ECG Impression Time: 07:04 Initial ECG Rate: 90 Initial ECG Rhythm: Normal Sinus Comment Narrow QRS, left axis deviation, frequent PVCs, subtle depression in the high lateral leads, otherwise no significant ST elevation or T wave abnormalities Diagnostic Imaging Diagonstic Imaging: Xray Plain Films/CT/US/NM/MRI: chest Comments NAME: DAILY ABURTO [facility] REC#: [id number] PT STATUS: REG ER : 1940 PHYSICIAN: SHERRON SANTIAGO MD ADMIT DATE: 04/07/22/ER Draft Date of Exam:04/07/22 CHEST 1 VIEW, AP/PA ONLY INDICATION: Chest pain COMPARISON: None FINDINGS: Single frontal view of the chest demonstrates normal heart size and pulmonary vascularity. The lungs are well aerated and clear. No large pleural effusion or pneumothorax is seen. The visualized osseous structures show no acute abnormalities. IMPRESSION: 1. No acute cardiopulmonary process. Dictated on workstation # [id number] Dict: 04/07/2242 Trans: 04/07/22 0744 CVB [id number] Interpreted by: COLT DUENAS MD Electronically signed by: Departure Impression Primary Impression: Chest pain Qualified Codes: R07.82 - Intercostal pain Disposition: 01 HOME, SELF-CARE Condition: Stable Departure-Patient Inst. Decision time for Depature: 08:35 Referrals: BRITTANY SALGADO MD (PCP/Family) Primary Care Physician Patient Instructions: Chest Pain (DC) Add. Discharge Instructions: It does not appear like you are having a heart attack right now. You do not have any signs of pneumonia on your chest x-ray. Your flu and COVID test were negative. I recommend taking [id number] Tylenol at home and following up with your regular doctor in the next couple days if things or not improving. If pain becomes more severe or you are worried and then please come back to the ER. SHERRON SANTIAGO MD Apr 07, 2022 07:20
[2022-04-07 07:34] LABS: ALBUMIN 4.1 GM/DL (3.2-4.5); POTASSIUM 3.9 MMOL/L (3.6-5.0)
[2022-04-07 07:35] LABS: CALCIUM 9.4 MG/DL (8.5-10.1)
[2022-04-07 07:36] LABS: TOTAL PROTEIN 6.9 GM/DL (6.4-8.2)
[2022-04-07 07:37] LABS: INR 0.9 (0.8-1.4); PROTHROMBIN TIME PATIENT 12.8 SEC (12.2-14.7)
[2022-04-07 07:38] LABS: BILIRUBIN,TOTAL 0.6 MG/DL (0.1-1.0)
[2022-04-07 07:40] LABS: CREATININE SERUM 0.67 MG/DL (0.60-1.30)
[2022-04-07 07:43] LABS: MAGNESIUM 1.9 MG/DL (1.6-2.4)
--- NOTE | 2022-04-07 07:44 | Diagnostic Imaging Report ---
INDICATION: Chest pain COMPARISON: None FINDINGS: Single frontal view of the chest demonstrates normal heart size and pulmonary vascularity. The lungs are well aerated and clear. No large pleural effusion or pneumothorax is seen. The visualized osseous structures show no acute abnormalities. IMPRESSION: 1. No acute cardiopulmonary process. Dictated by: Dictated on workstation # [id number]
[2022-04-07] MEDS ORDERED: FAMOTIDINE 20 MG (PEPCID) TABLET PO ONE (07:45)
[2022-04-07] MEDS ORDERED: ASPIRIN 81 MG CHEW (CHILDREN'S ASA) PO ONE (07:45)
[2022-04-07] MEDS ORDERED: ANTACID SUSP 30 ML UDC (MYLANTA) PO ONE (07:45)
[2022-04-07] MEDS ORDERED: ACETAMINOPHEN 500 MG TAB (TYLENOL) PO ONE (07:45)
[2022-04-07] MEDS ORDERED: ONDANSETRON 4 MG/2 ML (SDV) Z0FRAN IVP ONE (07:45)
[2022-04-07 08:47] VITALS: BP 124/54
== END 2022-04-07 08:47 | disposition home or self-care (01) ==
LOC: EDUNIT# 06:59 → ER 07:03
DX: R07.89 Other chest pain (principal); Z98.61 Coronary angioplasty status; Z28.310 Unvaccinated for COVID-19
CPT/HCPCS: 36415; 71045; 80053; 83735; 83880; 84484; 85025; 85610; 85730; 87636; 93005; 93041